=== PATIENT | male | born 1945 | race Caucasian/White ===

== ENCOUNTER 2019-05-14 23:21 | Inpatient (IN) ==
[2019-05-14] MEDS ORDERED: LACTATED RINGERS 1,000 ML IV ONE (23:44)
[2019-05-14] MEDS ORDERED: diphenhydrAMINE 50 MG/ML VIAL IV ONE (23:49)
--- NOTE | 2019-05-14 23:53 | Emergency Department Note ---
Alcohol HPI - General Chief Complaint: Alcohol Stated Complaint: Alcohol/facial abrasion Time Seen by Provider: 05/14/19 23:43 - History of Present Illness HPI Narrative: Brought in by police as well as EMS secondary to alcohol intoxication. Police states a known pretty well. He normally spends a lot of time at the [email or web address] and he walks from the [employer] back to his house. She stumbles home intoxicated. This time he was so intoxicated that he was unable to stand. He landed in a parking lot and then some kids tried to escort him over to a rascon which had stickers on it. There was no vomiting observed. He does have a facial abrasion, appears intoxicated MD complaint: alcohol intoxication - Related Data Allergies Allergy/AdvReac Type Severity Reaction Status Date / Time NKA Allergy Unknown Uncoded 02/28/15 23:37 No to Iodine Allergy Unknown Unknown Uncoded 02/28/15 23:37 No to Latex Allergy Unknown Uncoded 02/28/15 23:37 Review of Systems Limitations: ROS unobtainable due to patients medical condition Past Medical History - Past Medical History Source: nursing notes reviewed Medical history: Reports: COPD, other (alcohol dependency) Surgical history ED: Reports: non-contributory Family history: Reports: non-contributory - Social History smoking status: Current every day smoker Alcohol use: Reports: Frequently, Daily, Heavy, Recent Physical Exam Limitations: altered mental status General appearance: alert, appears intoxicated, in no apparent distress, other (in general he has ataxic gait. Abrasions on his face. Slurred speech) Head: atraumatic, normal inspection, other (a few facial abrasions mainly over the right side of face . Abrasions are superficial. Do not need suturing. He does have some edema to the area below the right eyelid. This is causing some facial swelling but extraocular movements are intact. He sees well out of both eyes as best as I can tell.) Eye: Present: EOMI, visual louis intact, other (pupils are sluggish). Absent: periorbital swelling, periorbital tenderness ENT: Present: normal exam, normal oropharynx, mucous membranes moist, TM's normal bilaterally, normal external ear exam Neck: Present: normal inspection, full ROM Chest: Present: normal inspection, symmetric chest wall rise Respiratory: Present: normal lung sounds bilaterally. Absent: respiratory distress, rales/crackles Cardiovascular: Present: regular rate, normal rhythm, normal heart sounds Abdominal: Present: soft, normal bowel sounds. Absent: distention, tenderness Extremities: Present: normal inspection, other (he has a deformed right elbow which is old injury, only about 20 of range of motion, he cannot supinate or pronate normally.). Absent: full ROM, tenderness Back: Present: normal inspection. Absent: vertebral tenderness Neurological: Present: alert, other (ataxic gait. Unable to stand without assistance up.). Absent: motor sensory deficit Psychiatric: Present: agitated, poor eye contact Skin: Present: warm, dry, normal color Course - Reevaluation(s) Reevaluation #1: Started on IV fluids. Initial labs drawn.. It turns out he was continuously trying to go to the bathroom. Quite agitated initially. Did seem to calm down with a little Ativan and Benadryl. Reevaluation #2: Discussed hospital admission with Dr. Bruno. At this point I do not think he warrants CT scanning of his head. There is no sign of significant head injury, mostly he has facial abrasions. Notably however his sodium is 119 which would warrant observation in the hospital. Vital Signs Pulse Rate 80 05/14/19 23:27 Respiratory Rate 18 05/14/19 23:27 Blood Pressure 125/104 05/14/19 23:27 Pulse Oximetry (%) 98 05/14/19 23:27 Pulse Rate 70 05/15/19 01:16 Respiratory Rate 18 05/14/19 23:27 Blood Pressure 126/68 05/15/19 01:16 Pulse Oximetry (%) 87 L 05/15/19 01:16 Alcohol - MDM Narrative Medical decision making narrative: CBC was within normal limits, however chemistry profile showing a sodium of 119. - Lab Data Lab results reviewed: Yes I reviewed the patient's lab results. Result diagrams: 05/14/19 23:56 05/14/19 23:56 Lab Results 05/14/19 05/14/1918 Range/Units 23:56 23:56 23:56 WBC 8.3 (4.5-11.0) K/mcL RBC 3.91 L (4.50-5.90) M/mcL Hgb 13.0 L (13.5-16.5) g/dL Hct 38.8 L (41.0-55.0) % MCV 99.1 (80.0-100.0) fL MCH 33.3 (26.0-34.0) pg MCHC 33.6 (31.0-36.0) g/dL RDW 14.2 (11.5-14.5) % Plt Count 309 (140-440) K/mcL MPV 6.4 L (7.4-10.4) fL Gran % 69.4 (38.0-78.0) % Lymph % (Auto) 19.1 (15.5-49.0) % [place] % (Auto) 9.2 (1.0-12.0) % Eos % (Auto) 2.2 (0.0-7.0) % Baso % (Auto) 0.1 (0.0-2.0) % Gran # 5.7 (1.8-8.0) K/mcL Lymph # (Auto) 1.6 (1.5-4.8) K/mcL [place] # (Auto) 0.8 (0.1-0.9) K/mcL Eos # (Auto) 0.2 (0.0-0.7) K/mcL Baso # (Auto) 0 (0.0-0.3) K/mcL PT 13.3 (11.9-14.5) sec INR 1.0 (0.9-1.1) Sodium 119 L* (133-145) mmol/L Potassium 4.2 (3.3-5.1) mmol/L Chloride 81 L (96-108) mmol/L Carbon Dioxide 23 (22-30) mmol/L Anion Gap 15.0 (8-16) BUN 6 L (8-23) mg/dl Creatinine 0.8 (0.7-1.2) mg/dl GFR Calculation 88 Glucose 93 (70-105) mg/dL Calcium 8.6 (8.6-10.4) mg/dl Magnesium 1.8 (1.6-2.5) mg/dL Total Bilirubin 0.3 (0.0-1.0) mg/dL AST 38 H (0-37) U/l ALT 27 (0-40) U/l Alkaline Phosphatase 81 (39-117) U/L Total Protein 7.4 (5.9-8.4) gm/dL Albumin 4.4 (3.2-5.2) gm/dL Globulin 3.0 (2.2-3.7) gm/dL Albumin/Globulin Ratio 1.5 (1.0-2.3) Ethyl Alcohol (<0.010) gm/dl 05/14/19 Range/Units 23:56 WBC (4.5-11.0) K/mcL RBC (4.50-5.90) M/mcL Hgb (13.5-16.5) g/dL Hct (41.0-55.0) % MCV (80.0-100.0) fL MCH (26.0-34.0) pg MCHC (31.0-36.0) g/dL RDW (11.5-14.5) % Plt Count (140-440) K/mcL MPV (7.4-10.4) fL Gran % (38.0-78.0) % Lymph % (Auto) (15.5-49.0) % [place] % (Auto) (1.0-12.0) % Eos % (Auto) (0.0-7.0) % Baso % (Auto) (0.0-2.0) % Gran # (1.8-8.0) K/mcL Lymph # (Auto) (1.5-4.8) K/mcL [place] # (Auto) (0.1-0.9) K/mcL Eos # (Auto) (0.0-0.7) K/mcL Baso # (Auto) (0.0-0.3) K/mcL PT (11.9-14.5) sec INR (0.9-1.1) Sodium (133-145) mmol/L Potassium (3.3-5.1) mmol/L Chloride (96-108) mmol/L Carbon Dioxide (22-30) mmol/L Anion Gap (8-16) BUN (8-23) mg/dl Creatinine (0.7-1.2) mg/dl GFR Calculation Glucose (70-105) mg/dL Calcium (8.6-10.4) mg/dl Magnesium (1.6-2.5) mg/dL Total Bilirubin (0.0-1.0) mg/dL AST (0-37) U/l ALT (0-40) U/l Alkaline Phosphatase (39-117) U/L Total Protein (5.9-8.4) gm/dL Albumin (3.2-5.2) gm/dL Globulin (2.2-3.7) gm/dL Albumin/Globulin Ratio (1.0-2.3) Ethyl Alcohol 0.251 H (<0.010) gm/dl Disposition Pt seen by SECURITY PUBLIC SAFETY OFFICER/PA only: No Clinical Impression: Alcoholic intoxication, Hyponatremia Disposition: Xfer As Inpt ([facility]) Condition: Fair Referrals: Chrissy Mahoney MD [Primary Care Provider] -
[2019-05-15 00:30] LABS: Prothrombin Time 13.3 sec (11.9-14.5)
[2019-05-15 00:34] LABS: Basophils # (Auto) 0 K/mcL (0.0-0.3); Basophils % (Auto) 0.1 % (0.0-2.0); Eosinophils # (Auto) 0.2 K/mcL (0.0-0.7); Eosinophils % (Auto) 2.2 % (0.0-7.0); Granulocytes % (Auto) 69.4 % (38.0-78.0); Hematocrit 38.8 % (41.0-55.0); Lymphocytes # (Auto) 1.6 K/mcL (1.5-4.8); Lymphocytes % (Auto) 19.1 % (15.5-49.0); Mean Cell Volume 99.1 fL (80.0-100.0); Mean Corpuscular HGB Conc 33.6 g/dL (31.0-36.0); Mean Platelet Volume 6.4 fL (7.4-10.4); Monocytes # (Auto) 0.8 K/mcL (0.1-0.9); Monocytes % (Auto) 9.2 % (1.0-12.0); Platelet Count 309 K/mcL (140-440); RBC 3.91 M/mcL (4.50-5.90); Red Cell Distribution Width 14.2 % (11.5-14.5); WBC 8.3 K/mcL (4.5-11.0)
[2019-05-15 00:41] LABS: Alcohol,Blood 0.251 gm/dl (<0.010)
[2019-05-15] MEDS ORDERED: LORazepam 2 MG/ML VIAL ONE (00:54)
[2019-05-15 00:56] LABS: ALT/SGPT 27 U/l (0-40); AST/SGOT 38 U/l (0-37); Albumin 4.4 gm/dL (3.2-5.2); Albumin/Globulin Ratio 1.5 (1.0-2.3); Alkaline Phosphatase 81 U/L (39-117); Bilirubin,Total 0.3 mg/dL (0.0-1.0); Blood Urea Nitrogen 6 mg/dl (8-23); Calcium 8.6 mg/dl (8.6-10.4); Carbon Dioxide 23 mmol/L (22-30); Chloride 81 mmol/L (96-108); Glomerular Filtration Rate 88; Glucose 93 mg/dL (70-105)
[2019-05-15] MEDS ORDERED: LORazepam 2 MG/ML VIAL IV ONE (01:10)
[2019-05-15] MEDS ORDERED: ONDANSETRON 4 MG/2 ML VIAL IV PRN ×2 (01:55→10:01)
[2019-05-15] MEDS ORDERED: 0.9 % SODIUM CHLORIDE 1,000 ML IV SCH ×2 (02:00→09:45)
[2019-05-15] MEDS: LORazepam 2 MG/ML VIAL IV PRN ×3 (03:00→20:39)
[2019-05-15 05:37] LABS: Basophils # (Auto) 0 K/mcL (0.0-0.3); Basophils % (Auto) 0.4 % (0.0-2.0); Eosinophils # (Auto) 0.1 K/mcL (0.0-0.7); Eosinophils % (Auto) 0.8 % (0.0-7.0); Granulocytes % (Auto) 76.2 % (38.0-78.0); Hematocrit 35.7 % (41.0-55.0); Lymphocytes # (Auto) 1.2 K/mcL (1.5-4.8); Mean Cell Volume 100.2 fL (80.0-100.0); Mean Corpuscular HGB Conc 33.6 g/dL (31.0-36.0); Mean Platelet Volume 6.2 fL (7.4-10.4); Monocytes # (Auto) 1.2 K/mcL (0.1-0.9); Monocytes % (Auto) 11.6 % (1.0-12.0); Platelet Count 243 K/mcL (140-440); RBC 3.56 M/mcL (4.50-5.90); Red Cell Distribution Width 14.3 % (11.5-14.5); WBC 10.7 K/mcL (4.5-11.0)
[2019-05-15 06:01] LABS: ALT/SGPT 22 U/l (0-40); AST/SGOT 32 U/l (0-37); Albumin 3.7 gm/dL (3.2-5.2); Albumin/Globulin Ratio 1.4 (1.0-2.3); Alkaline Phosphatase 68 U/L (39-117); Bilirubin,Direct < 0.2 mg/dL (0.0-0.3); Bilirubin,Total 0.4 mg/dL (0.0-1.0); Blood Urea Nitrogen 5 mg/dl (8-23); Calcium 8.2 mg/dl (8.6-10.4); Carbon Dioxide 22 mmol/L (22-30); Chloride 87 mmol/L (96-108); Globulin 2.7 gm/dL (2.2-3.7); Glomerular Filtration Rate 99; Glucose 70 mg/dL (70-105); Lactate Dehydrogenase 226 U/L (94-250); Triglycerides 42 mg/dl (<150)
--- NOTE | 2019-05-15 07:21 | Internal Med History&Physical ---
Medical - H&P: [facility] Patient information: Note initiated : 05/15/19 at 7:16 am Service Date, if different from initiated Date: [] Patient: Juan F Roblero 73 y/o M admitted on 05/15/19 for Alcohol/facial abrasion. Chief Complaint: [] History of present illness: Mr. Roblero is a 73 year old M Who presents to the ED with police. Patient history of alcohol abuse. And the long time at the [employer] and usually walks his way home intoxicated. Well-known to the place. This time he was so intoxicated he was unable to stand and fell in a parking, some kids brought him over to some bushes there was no observed vomiting he did have some facial abrasions. In the ED he was evaluated and found to have a sodium of 119 and thus admission was requested. Unable to get much history from the patient has he is quite drowsy. He did get some Ativan at 3 AM for elevated CIWA. Unable to gather review of systems because of poor mentation. Medical - H&P: H Medical history: Past medical: Alcohol abuse COPD Tobacco abuse Past surgical history Unable to obtain because of altered mental state Family history: Unable to obtain because of altered mental state Social: Smokes pack per day Unable to obtain because of altered mental state Medical - H&P: Meds Allergies Allergy/AdvReac Type Severity Reaction Status Date / Time No Known Drug Allergies Allergy Verified 05/15/19 02:38 Medical - H&P: Exam - Constitutional Vitals: Temp Pulse Resp BP Pulse Ox 98 F 72 16 121/68 94 05/15/19 06:00 05/15/19 06:00 05/15/19 06:00 05/15/19 06:00 05/15/19 06:00 Exam: General: drowsy, No acute Distress Eyes/N/T: PEERL, DMM Head/Neck: neck supple, ecchymosis of the right eye CV: RRR, No murmurs, normal s1/s2 Pulm: Mild wheezing on right, rhonchi left Abd: soft, nontender, +BS x4 Ext: no clubbing/cyanosis/edema, pain to the right elbow with passive elevation Neuro: Quite drowsy minimally responsive to verbal command, does weakly respond yes or no to some questions, spontaneously moves extremities, sensations intact b/l upper/lower Skin: warm/dry Medical - H&P: Reslt - Labs CBC & Chem 7: 05/15/19 04:06 05/15/19 04:06 Labs: Short CBC 05/14/19 05/15/19 Range/Units 23:56 04:06 WBC 8.3 10.7 (4.5-11.0) K/mcL Hgb 13.0 L 12.0 L (13.5-16.5) g/dL Hct 38.8 L 35.7 L (41.0-55.0) % Plt Count 309 243 (140-440) K/mcL BMP 05/14/19 05/15/19 23:56 04:06 Sodium 119 L* 122 L Potassium 4.2 4.1 Chloride 81 L 87 L Carbon Dioxide 23 22 BUN 6 L 5 L Creatinine 0.8 0.6 L Glucose 93 70 Calcium 8.6 8.2 L Liver Function 05/14/19 05/15/19 Range/Units 23:56 04:06 Total Bilirubin 0.3 0.4 (0.0-1.0) mg/dL Direct Bilirubin < 0.2 (0.0-0.3) mg/dL GGT 37 (8-61) U/L AST 38 H 32 (0-37) U/l ALT 27 22 (0-40) U/l Alkaline Phosphatase 81 68 (39-117) U/L Albumin 4.4 3.7 (3.2-5.2) gm/dL Medical - H&P: A/P - Narrative A/P Narrative: A: *Hyponatremia, beer potomania / hypovolemia: *UTI: *Alcohol intoxication: *Encephalopathy: 2/2 above *COPD (): *Tobacco abuse: * P: -NS IVF's -serial Na's -CIWA, thiamine/folate/MV -urine studies -f/u UDS -Rocephin, pending UC -Left elbow xry, cxr, CT brain -Rocephin pending UC -?home meds -Smoking cessation counseling -ppx: Lovenox Medical - H&P: Qual - VTE Deep Vein Thrombosis/Pulmonary Embolism Present on Admission: No
[2019-05-15 09:00] LABS: Osmolality,Urine 144 mOsm/kg (80-1000)
[2019-05-15] MEDS: THIAMINE 100 MG in 0.9 % SODIUM CHLORIDE 50 ML IV SCH (09:00)
[2019-05-15] MEDS ORDERED: ENOXAPARIN 40 MG/0.4 ML SYRINGE SQ SCH (09:00)
[2019-05-15 09:10] LABS: Appearance,Urine HAZY; Bacteria,Urine MANY /hpf (0); Bilirubin,Urine NEG (NEG); Color,Urine LT RED; Culture Indicated,Urine YES; Glucose,Urine (UA) NEGATIVE (NEG); Ketones,Urine NEG (NEG); Leukocyte Esterase,Urine 500 /uL (NEG); Nitrate,Urine POS (NEG); Protein,Urine 30 mg/dL (NEG); Specific Gravity,Urine 1.003 (1.000-1.035); Urine Blood >=1.0 mg/dL (<0.03); Urine RBC 14 /hpf (0-1); Urine Squamous Epithelial Cell 0 /hpf (0-4); Urine WBC 9 /hpf (0-4); Urobilinogen,Urine NEG (NEG)
[2019-05-15 09:11] LABS: Sodium, Urine Random < 20 mmol/L
[2019-05-15] MEDS ORDERED: POLYETHYLENE GLYCOL 3350 17 GM PACKET PO PRN (10:01)
[2019-05-15] MEDS ORDERED: IPRATROPIUM/ALBUTEROL 3 ML AMPUL.NEB NEB PRN (10:01)
[2019-05-15] MEDS ORDERED: MAGNESIUM SULFATE 2 GM/50 ML BAG IV PRN (10:01)
[2019-05-15] MEDS ORDERED: POTASSIUM CHLORIDE 40 MEQ in DEXTROSE 5% IN WATER 500 ML IV PRN (10:01)
[2019-05-15] MEDS ORDERED: POTASSIUM CHLORIDE 20 MEQ TABLET PO PRN ×2 (10:01)
[2019-05-15] MEDS ORDERED: SENNOSIDES 1 TABLET PO PRN (10:01)
[2019-05-15] MEDS ORDERED: METOCLOPRAMIDE 10 MG/2 ML VIAL IV PRN (10:01)
[2019-05-15] MEDS ORDERED: LACTULOSE 20 GM/30 ML ORAL.SOL PO PRN (10:01)
[2019-05-15] MEDS: FOLIC ACID 1 MG TABLET PO SCH ×2 (10:01→11:42)
[2019-05-15] MEDS: MULTIVIT,THER IRON,CA,FA & MIN 1 TABLET PO SCH ×2 (10:01→12:14)
[2019-05-15] MEDS ORDERED: cefTRIAXone 1 GM in DEXTROSE 5% IN WATER 50 ML IV SCH (10:15)
[2019-05-15] MEDS: cefTRIAXone 1 GM VIAL IV SCH (10:30)
--- NOTE | 2019-05-15 10:43 | Cat Scan Report ---
CLINICAL INFORMATION: Bruising in the right orbital region TECHNIQUE: Axial noncontrast enhanced brain CT scan. Sagittal and coronal reformatted images COMPARISON: None. FINDINGS: No acute intracranial hemorrhage. There is no subdural hematoma. There is no subarachnoid hemorrhage. Basilar cisterns are normal. No focal intra-axial attenuation abnormality or localized mass effect. No midline shift. No intra-axial hemorrhage. There is cerebral atrophy for age with prominent superficial subarachnoid spaces and ventricles. Brainstem and cerebellum are negative. No calvarial fracture. No lytic lesion. Temporal bones are negative. No basilar skull fracture. There is a suggestion of a right orbital floor fracture. This is only identified on the caudal most image. Routine orbital and maxillofacial CT scan recommended for further evaluation. There is fluid within the right maxillary sinus. There is minimal fluid within the left maxillary sinus. There is mucosal thickening within ethmoid sinuses bilaterally. There is fluid within right frontal sinuses. There is right periorbital soft tissue swelling. The globes are negative bilaterally. No intraorbital abnormality. IMPRESSION: 1. Cerebral atrophy. No acute intracranial abnormality 2. Right periorbital soft tissue swelling. Probable right orbital floor fracture. Recommend further evaluation 3. Abnormality of the right frontal sinuses, ethmoid sinuses, and maxillary sinuses. Hemorrhage within the right maxillary sinus is suspected. Interpreted and Authenticated by: Reinaldo Jerry 05/15/19
--- NOTE | 2019-05-15 10:45 | XRay Report ---
CLINICAL INFORMATION: Right elbow pain TECHNIQUE: AP, oblique, lateral right elbow COMPARISON: None. FINDINGS: Essentially nondisplaced humeral supracondylar fracture. Articular surfaces of the distal humerus are intact. Radius and ulna are negative. Radiocapitellar and ulnar trochlear joints are unremarkable. IMPRESSION: Essentially nondisplaced distal right humeral supracondylar fracture Interpreted and Authenticated by: Reinaldo Jerry 05/15/19
[2019-05-15 11:14] LABS: Amphetamine Screen,Urine NONE DETECTED (NONDETECTED); Barbiturate Screen,Urine NONE DETECTED (NONDETECTED); Benzodiazepines Screen,Urine NONE DETECTED (NONDETECTED); Cannabinoid Screen,Urine NONE DETECTED (NONDETECTED); Cocaine Screen,Urine NONE DETECTED (NONDETECTED); Opiate Screen,Urine NONE DETECTED (NONDETECTED); Oxycodone, Urine Screen NONE DETECTED (NONDETECTED); Phencyclidine Screen,Urine NONE DETECTED (NONDETECTED)
[2019-05-15] MEDS: chlordiazePOXIDE 25 MG CAPSULE PO PRN ×2 (11:40→19:44)
[2019-05-15] MEDS: HYDROcodone/APAP 5/325MG TABLET PO PRN (11:40)
[2019-05-15] MEDS: cloNIDine HCL 0.1 MG TABLET PO PRN (12:14)
[2019-05-15 13:00] LABS: Blood Urea Nitrogen 5 mg/dl (8-23); Calcium 8.5 mg/dl (8.6-10.4); Carbon Dioxide 27 mmol/L (22-30); Chloride 89 mmol/L (96-108); Glomerular Filtration Rate 99; Glucose 69 mg/dL (70-105)
[2019-05-15] MEDS ORDERED: DEXTROSE 5% IN WATER 250 ML IV SCH (14:00)
[2019-05-15] MEDS ORDERED: DEXTROSE 5%-NS W/20MEQ KCL 1,000 ML IV SCH (14:00)
[2019-05-15] MEDS: 0.9 % SODIUM CHLORIDE 10 ML SYRINGE IV SCH ×2 (14:36→21:59)
--- NOTE | 2019-05-15 15:18 | XRay Report ---
INDICATION: Dyspnea TECHNIQUE: AP chest x-ray,portable semiupright COMPARISON: Previous chest x-ray dated 11/06/2008 FINDINGS:Lungs are negative. No pulmonary parenchymal infiltrate or mass. Heart size and vascularity are normal. Selene and mediastinum are negative. There is no pleural fluid IMPRESSION: Negative AP portable chest x-ray Interpreted and Authenticated by: Reinaldo Jerry 05/15/19
[2019-05-15] MEDS: FAMOTIDINE/PF 20 MG/2 ML VIAL IV SCH (19:44)
[2019-05-15] MEDS: DOCUSATE SODIUM 100 MG CAPSULE PO SCH (19:44)
[2019-05-15 20:25] LABS: Blood Urea Nitrogen 5 mg/dl (8-23); Calcium 8.5 mg/dl (8.6-10.4); Carbon Dioxide 28 mmol/L (22-30); Chloride 88 mmol/L (96-108); Glomerular Filtration Rate 93; Glucose 89 mg/dL (70-105)
[2019-05-15] MEDS ORDERED: FAMOTIDINE 20 MG TABLET PO SCH (21:00)
[2019-05-16] MEDS: 0.9 % SODIUM CHLORIDE 10 ML SYRINGE IV SCH ×3 (05:10→21:48)
[2019-05-16 05:24] LABS: Basophils # (Auto) 0 K/mcL (0.0-0.3); Basophils % (Auto) 0.2 % (0.0-2.0); Eosinophils # (Auto) 0.1 K/mcL (0.0-0.7); Eosinophils % (Auto) 0.5 % (0.0-7.0); Granulocytes % (Auto) 83.6 % (38.0-78.0); Hematocrit 35.4 % (41.0-55.0); Hemoglobin 11.8 g/dL (13.5-16.5); Lymphocytes # (Auto) 0.9 K/mcL (1.5-4.8); Lymphocytes % (Auto) 7.6 % (15.5-49.0); Mean Cell Volume 100.5 fL (80.0-100.0); Mean Corpuscular HGB Conc 33.3 g/dL (31.0-36.0); Mean Platelet Volume 6.6 fL (7.4-10.4); Monocytes % (Auto) 8.1 % (1.0-12.0); Platelet Count 254 K/mcL (140-440); RBC 3.53 M/mcL (4.50-5.90); Red Cell Distribution Width 14.7 % (11.5-14.5); WBC 11.9 K/mcL (4.5-11.0)
[2019-05-16 05:41] LABS: ALT/SGPT 17 U/l (0-40); AST/SGOT 24 U/l (0-37); Albumin 3.1 gm/dL (3.2-5.2); Albumin/Globulin Ratio 1.2 (1.0-2.3); Alkaline Phosphatase 74 U/L (39-117); Bilirubin,Direct < 0.2 mg/dL (0.0-0.3); Bilirubin,Total 0.5 mg/dL (0.0-1.0); Blood Urea Nitrogen 5 mg/dl (8-23); Calcium 8.1 mg/dl (8.6-10.4); Carbon Dioxide 25 mmol/L (22-30); Chloride 94 mmol/L (96-108); Globulin 2.6 gm/dL (2.2-3.7); Glomerular Filtration Rate 93; Glucose 111 mg/dL (70-105); Lactate Dehydrogenase 202 U/L (94-250); Phosphorous 2.8 mg/dL (2.7-4.5); Triglycerides 52 mg/dl (<150); Uric Acid 2.5 mg/dL (2.5-8.0)
--- NOTE | 2019-05-16 07:43 | Internal Med Progress Note ---
Medical - PN: Subj Patient information: Note initiated : 05/16/19 at 7:39 am Service Date, if different from initiated Date: [] Patient: Juan F Roblero 73 y/o M admitted on 05/15/19 for Alcohol/facial abrasion. Chief Complaint: [] Interval history: Mr. Roblero is a 73 year old M Who presents to the ED with police. Patient history of alcohol abuse. And the long time at the [facility] and usually walks his way home intoxicated. Well-known to the place. This time he was so intoxicated he was unable to stand and fell in a parking, some kids brought him over to some bushes there was no observed vomiting he did have some facial abrasions. In the ED he was evaluated and found to have a sodium of 119 and thus admission was requested. Unable to get much history from the patient has he is quite drowsy. He did get some Ativan at 3 AM for elevated CIWA. Unable to gather review of systems because of poor mentation. 05/16 Or conversant this morning. No complaints. Received Ativan last night for elevated CIWA scores. Review of Systems: denies headache/fever/chills/nausea/vomiting/chest or abdominal pain/c ough/dyspnea/diarrhea. Otherwise see above. - Constitutional Vitals: Vital Signs Temp Pulse Resp BP Pulse Ox 98.7 F 73 14 134/59 99 05/16/19 04:00 05/16/19 04:00 05/16/19 04:00 05/16/19 04:00 05/16/19 04:00 Period Temp Pulse Resp BP Sys/Hawkins Pulse Ox Last 24 Hr 98 F-98.7 F 63-82 14-19 134-169/59-89 90-100 Intake and Output 05/15/19 05/16/19 05/16/19 21:59 05:59 13:59 Intake Total 593 Output Total 325 925 Balance 268 -925 Weight 57.379 kg Intake & Output: Intake & Output 05/15/19 05/16/19 05/16/19 21:59 05:59 13:59 Intake Total 593 Output Total 325 925 Balance 268 -925 Weight 57.379 kg Intake: IV 593 Dextrose 5% in Water 250 ml @ 250 125 mls/hr IV .Q2H [facility] Rx#: [id number] Output: Urine Catheter Amount 325 925 Other: Urine Appearance Cloudy Cloudy Urine Color Dark Yellow Dark Yellow Urine Odor Strong Strong Exam: General: Sleeping but awakens easily,no acute Distress Eyes/N/T: PEERL Head/Neck: neck supple, ecchymosis of the right eye CV: RRR, No murmurs, Pulm: No wheezing noted today, better aeration. abd: soft, nontender, +BS x4 Ext: no clubbing/cyanosis/edema, Neuro: Sleeping but awakens easily, follows commands, no focal deficits arm/dry Medical - PN: Obj Da - Labs CBC & Chem 7: 05/16/19 03:30 05/16/19 03:30 Labs: Abnormal Lab Results 05/16/19 05/16/19 05/15/19 03:30 03:30 18:13 WBC 11.9 H RBC 3.53 L Hgb 11.8 L Hct 35.4 L MCV 100.5 H RDW 14.7 H MPV 6.6 L Gran % 83.6 H Lymph % (Auto) 7.6 L Gran # 10.0 H Lymph # (Auto) 0.9 L Wilkin # (Auto) 1.0 H Sodium 129 L 125 L Potassium Chloride 94 L 88 L BUN 5 L 5 L Creatinine Glucose 111 H Calcium 8.1 L 8.5 L AST Total Protein 5.7 L Albumin 3.1 L Urine Protein Urine Occult Blood Urine Nitrate Ur Leukocyte Esterase Urine RBC Urine WBC Urine Bacteria Ethyl Alcohol 05/15/19 05/15/19 05/15/19 12:15 07:30 04:06 WBC RBC Hgb Hct MCV RDW MPV Gran % Lymph % (Auto) Gran # Lymph # (Auto) Wilkin # (Auto) Sodium 128 L 122 L Potassium 5.2 H Chloride 89 L 87 L BUN 5 L 5 L Creatinine 0.6 L 0.6 L Glucose 69 L Calcium 8.5 L 8.2 L AST Total Protein Albumin Urine Protein 30 A Urine Occult Blood >=1.0 A Urine Nitrate Pos A Ur Leukocyte Esterase 500 A Urine RBC 14 H Urine WBC 9 H Urine Bacteria Many A Ethyl Alcohol 05/15/19 05/14/19 05/14/19 04:06 23:56 23:56 WBC RBC 3.56 L Hgb 12.0 L Hct 35.7 L MCV 100.2 H RDW MPV 6.2 L Gran % Lymph % (Auto) 11.0 L Gran # 8.1 H Lymph # (Auto) 1.2 L Wilkin # (Auto) 1.2 H Sodium 119 L* Potassium Chloride 81 L BUN 6 L Creatinine Glucose Calcium AST 38 H Total Protein Albumin Urine Protein Urine Occult Blood Urine Nitrate Ur Leukocyte Esterase Urine RBC Urine WBC Urine Bacteria Ethyl Alcohol 0.251 H 05/14/19 23:56 WBC RBC 3.91 L Hgb 13.0 L Hct 38.8 L MCV RDW MPV 6.4 L Gran % Lymph % (Auto) Gran # Lymph # (Auto) Wilkin # (Auto) Sodium Potassium Chloride BUN Creatinine Glucose Calcium AST Total Protein Albumin Urine Protein Urine Occult Blood Urine Nitrate Ur Leukocyte Esterase Urine RBC Urine WBC Urine Bacteria Ethyl Alcohol Meds: Medications Acetaminophen (Tylenol) 650 mg PO Q6HP PRN PRN Reason: PAIN/FEVER > 101 Hydrocodone Bitart/Acetaminophen (Spalding 5/325mg) 1 tab PO Q4HP PRN PRN Reason: PAIN LEVEL 3-6 Last Admin: 05/15/19 11:40 Dose: 1 tab Documented by: Albuterol/Ipratropium (Duoneb) 3 ml NEB Q4HP PRN PRN Reason: Shortness Of Breath Ceftriaxone Sodium (Rocephin) 1 gm IV Q24H [facility] Last Admin: 05/15/19 10:30 Dose: 1 gm Documented by: Chlordiazepoxide HCl (Librium) 50 mg PO Q4HP PRN PRN Reason: Alcohol Withdrawal Last Admin: 05/15/19 19:44 Dose: 50 mg Documented by: Clonidine HCl (Catapres) 0.1 mg PO Q4HP PRN PRN Reason: Alcohol Withdrawal Last Admin: 05/15/19 12:14 Dose: 0.1 mg Documented by: Docusate Sodium (Colace) 100 mg PO BID [facility] Last Admin: 05/15/19 19:44 Dose: 100 mg Documented by: Famotidine (Pepcid) 20 mg IV Q12 [facility] Last Admin: 05/15/19 19:44 Dose: 20 mg Documented by: Folic Acid (Folic Acid) 1 mg PO DAILY [facility] Last Admin: 05/15/19 11:42 Dose: 1 mg Documented by: Thiamine HCl 100 mg/ Sodium (Chloride) 51 mls @ 50 mls/hr IV DAILY [facility] Last Infusion: 05/15/19 10:15 Dose: Infused Documented by: Magnesium Sulfate (Magnesium Sulfate) 2 gm in 50 mls @ 50 mls/hr IV UD PRN PRN Reason: Magnesium </= 1.6 Iron Carb/Multivit/Sioux/Folic Acid (Multivitamin W/Minerals) 1 tab PO DAILY [facility]AT[facility] Last Admin: 05/15/19 12:14 Dose: 1 tab Documented by: Lactulose (Cephulac) 10 gm PO DAILYP PRN PRN Reason: Constipation Lorazepam (Ativan) 0 mg IV Q1HP PRN; Protocol PRN Reason: Alcohol Withdrawal Last Admin: 05/15/19 20:39 Dose: 2 mg Documented by: Metoclopramide HCl (Reglan) 10 mg IV Q6HP PRN PRN Reason: Nausea And Vomiting Ondansetron HCl (Zofran) 4 mg IV Q4HP PRN PRN Reason: Nausea And Vomiting Ondansetron HCl (Zofran) 4 mg IV Q4HP PRN PRN Reason: Nausea And Vomiting Polyethylene Glycol (Miralax) 17 gm PO DAILYP PRN PRN Reason: Constipation Senna (Senokot) 2 tab PO HSP PRN PRN Reason: Constipation Sodium Chloride (Saline Flush) 10 ml IV Q8 [facility] Last Admin: 05/16/19 05:10 Dose: Not Given Documented by: Medical - PN: A/P - Time Spent With Patient Total time spent is greater than 50% in coordination of care (as documented) at patient's floor/unit and/or counseling patient: - Narrative A/P Narrative: A: *Hyponatremia, beer potomania / hypovolemia: improved *Fall while intoxicated DYE TUB TENDER: *Right orbital floor Fx: *Right humerus, lateral supracondylar fx: splint placed *UTI: *Alcohol intoxication: *Encephalopathy: 2/2 above *COPD (): *Tobacco abuse: *anemia: 2/2 trauma P: -CIWA, thiamine/folate/MV -Rocephin, pending -Dr. Odom consult -discussed with Dr Medina: recs to place in long arm splint and f/u in office -?home meds -Smoking cessation counseling -beer with dinner -ppx: SCD (hold chemical given trauma/facial bruising/possible hemorrhage maxiallary sinus)/ppi Medical - PN: Qual - VTE Deep Vein Thrombosis/Pulmonary Embolism Present on Admission: No
[2019-05-16 08:23] LABS: Lymphocytes % 14 % (15-49); Macrocytosis OCC (NONE SEEN); Monocytes % (Manual) 3 % (1-12); Platelet Estimate NORMAL (NORMAL); RBC Morphology ABNORM (NORMAL); Segmented Neutrophils % 83 % (38-78)
--- NOTE | 2019-05-16 08:59 | Cat Scan Report ---
CLINICAL INFORMATION: Trauma TECHNIQUE: Axial noncontrast enhanced images through the facial bones. Sagittal and coronal reformatted images. COMPARISON: Brain CT scan dated 05/15/2019 FINDINGS: Decreased left periorbital soft tissue swelling. Globes remain normal. No evidence for ocular injury. There is a fracture of the floor of the right orbit. There is a bone fragment which is displaced caudally and medially. Inferior rectus muscle is not caudally displaced but is slightly enlarged with minimal infiltration of surrounding fat. There may be a portion of this muscle which extends through the fracture defect. Clinical correlation for symptoms of inferior rectus muscular entrapment recommended. Extraocular musculature is otherwise negative. Optic nerve is negative. There is no medial blowout fracture. Lamina papyracea appears intact. Lateral wall and orbital roof are normal. Zygomatic arches are normal and bilaterally symmetric. There is abnormal soft tissue density within the right maxillary sinus. There are gas bubbles indicating this is at least partially fluid density. There is mild mucosal thickening within right ethmoid sinuses. Nasal bones are angulated toward the right. No acute nasal bone fracture. Hard palate is negative. Pterygoid plates are negative. Temporal bones are negative. No basilar skull fracture. Sphenoid sinuses are normal. Incidental note is made of atherosclerotic calcification in the cavernous portions of the internal carotid arteries bilaterally IMPRESSION: 1. Right orbital floor blowout fracture 2. Soft tissue abnormality within the right maxillary sinus consistent with hemorrhage 3. No medial blowout fracture. No other facial bone fractures. 4. Improved right periorbital soft tissue swelling Interpreted and Authenticated by: Reinaldo Jerry 05/16/19
[2019-05-16] MEDS: THIAMINE 100 MG in 0.9 % SODIUM CHLORIDE 50 ML IV SCH (10:03)
[2019-05-16] MEDS: FAMOTIDINE/PF 20 MG/2 ML VIAL IV SCH ×2 (10:03→19:33)
[2019-05-16] MEDS: cefTRIAXone 1 GM VIAL IV SCH (10:05)
[2019-05-16] MEDS: 0.9 % SODIUM CHLORIDE 500 ML IV SCH ×2 (10:06→21:47)
[2019-05-16] MEDS: HYDROcodone/APAP 5/325MG TABLET PO PRN ×2 (11:59→20:08)
[2019-05-16] MEDS: chlordiazePOXIDE 25 MG CAPSULE PO PRN ×2 (11:59→20:09)
[2019-05-16] MEDS: DOCUSATE SODIUM 100 MG CAPSULE PO SCH ×2 (11:59→19:32)
[2019-05-16] MEDS: MULTIVIT,THER IRON,CA,FA & MIN 1 TABLET PO SCH (11:59)
[2019-05-16] MEDS: cloNIDine HCL 0.1 MG TABLET PO PRN (12:00)
[2019-05-16] MEDS: FOLIC ACID 1 MG TABLET PO SCH (12:00)
[2019-05-16] MEDS: LORazepam 2 MG/ML VIAL IV PRN ×4 (12:28→21:54)
[2019-05-17 05:22] LABS: Basophils # (Auto) 0 K/mcL (0.0-0.3); Basophils % (Auto) 0.5 % (0.0-2.0); Eosinophils # (Auto) 0.2 K/mcL (0.0-0.7); Eosinophils % (Auto) 1.8 % (0.0-7.0); Granulocytes % (Auto) 75.7 % (38.0-78.0); Hematocrit 33.9 % (41.0-55.0); Hemoglobin 11.3 g/dL (13.5-16.5); Lymphocytes # (Auto) 1.1 K/mcL (1.5-4.8); Lymphocytes % (Auto) 11.9 % (15.5-49.0); Mean Cell Volume 100.4 fL (80.0-100.0); Mean Corpuscular HGB Conc 33.4 g/dL (31.0-36.0); Mean Platelet Volume 6.8 fL (7.4-10.4); Monocytes # (Auto) 0.9 K/mcL (0.1-0.9); Monocytes % (Auto) 10.1 % (1.0-12.0); Platelet Count 260 K/mcL (140-440); RBC 3.37 M/mcL (4.50-5.90); Red Cell Distribution Width 14.3 % (11.5-14.5); WBC 9.2 K/mcL (4.5-11.0)
[2019-05-17 05:27] LABS: Blood Urea Nitrogen 5 mg/dl (8-23); Calcium 8.3 mg/dl (8.6-10.4); Carbon Dioxide 26 mmol/L (22-30); Chloride 96 mmol/L (96-108); Glomerular Filtration Rate 99; Glucose 73 mg/dL (70-105)
[2019-05-17] MEDS: 0.9 % SODIUM CHLORIDE 10 ML SYRINGE IV SCH ×3 (07:44→20:13)
[2019-05-17] MEDS: 0.9 % SODIUM CHLORIDE 500 ML IV SCH (07:44)
--- NOTE | 2019-05-17 08:04 | Internal Med Progress Note ---
Medical - PN: Subj Patient information: Note initiated : 05/17/19 at 7:59 am Service Date, if different from initiated Date: [] Patient: Juan F Roblero 73 y/o M admitted on 05/15/19 for Alcohol/facial abrasion. Chief Complaint: [] Interval history: Mr. Roblero is a 73 year old M Who presents to the ED with police. Patient history of alcohol abuse. And the long time at the [facility] and usually walks his way home intoxicated. Well-known to the place. This time he was so intoxicated he was unable to stand and fell in a parking, some kids brought him over to some bushes there was no observed vomiting he did have some facial abrasions. In the ED he was evaluated and found to have a sodium of 119 and thus admission was requested. Unable to get much history from the patient has he is quite drowsy. He did get some Ativan at 3 AM for elevated CIWA. Unable to gather review of systems because of poor mentation. 05/16 Or conversant this morning. No complaints. Received Ativan last night for elevated CIWA scores. 05/17 Patient sleeping but arousable. Nurse reports this morning patient appeared aspirate on water. Patient n.p.o. until seen by speech today. Review of Systems: denies headache/fever/chills/nausea/vomiting/chest or abdominal pain/cough/dyspnea/diarrhea. Otherwise see above. - Constitutional Vitals: Vital Signs Temp Pulse Resp BP Pulse Ox 97.3 F 69 14 145/77 93 05/17/19 04:00 05/17/19 04:00 05/17/19 04:00 05/17/19 04:00 05/17/19 04:00 Period Temp Pulse Resp BP Sys/Hawkins Pulse Ox Last 24 Hr 97.3 F-98.0 F 69-107 14-18 128-165/63-103 91-98 Intake and Output 05/16/19 05/17/19 05/17/19 21:59 05:59 13:59 Intake Total 200 500 Output Total 800 545 Balance -600 -545 500 Weight 56.019 kg Intake & Output: Intake & Output 05/16/19 05/17/19 05/17/19 21:59 05:59 13:59 Intake Total 200 500 Output Total 800 545 Balance -600 -545 500 Weight 56.019 kg Intake: IV 500 Sodium Chloride 0.9% 500 ml @ 500 50 mls/hr IV .Q10H [facility] Rx#: [id number] Oral 200 Output: Urine Catheter Amount 800 545 Other: Urine Appearance Clear Sediment Uretheral (Hahn) Clear Clear Urine Color Dark Yellow Dark Yellow Uretheral (Hahn) Dark Yellow Dark Yellow Urine Odor Normal Exam: General: Sleeping but awakens easily,no acute Distress Eyes/N/T: PEERL Head/Neck: neck supple, ecchymosis of the right eye CV: RRR, No murmurs, Pulm: No wheezing noted today, better aeration, mild rhonchi abd: soft, nontender, +BS x4 Ext: no clubbing/cyanosis/edema, RUE in splint Neuro: Sleeping but awakens easily, follows commands, no focal deficits skin: warm/dry Medical - PN: Obj Da - Labs CBC & Chem 7: 05/17/19 03:30 05/17/19 03:30 Labs: Abnormal Lab Results 05/17/19 05/17/19 05/16/19 03:30 03:30 03:30 WBC RBC 3.37 L Hgb 11.3 L Hct 33.9 L MCV 100.4 H RDW MPV 6.8 L Gran % Lymph % (Auto) 11.9 L Gran # Lymph # (Auto) 1.1 L [place] # (Auto) Seg Neutrophils % 83 H Lymphocytes % 14 L RBC Morphology Abnorm A Macrocytosis Occ A Sodium Potassium Chloride BUN 5 L Creatinine 0.6 L Glucose Calcium 8.3 L AST Total Protein Albumin Urine Protein Urine Occult Blood Urine Nitrate Ur Leukocyte Esterase Urine RBC Urine WBC Urine Bacteria Ethyl Alcohol 05/16/19 05/16/19 05/15/19 03:30 03:30 18:13 WBC 11.9 H RBC 3.53 L Hgb 11.8 L Hct 35.4 L MCV 100.5 H RDW 14.7 H MPV 6.6 L Gran % 83.6 H Lymph % (Auto) 7.6 L Gran # 10.0 H Lymph # (Auto) 0.9 L [place] # (Auto) 1.0 H Seg Neutrophils % Lymphocytes % RBC Morphology Macrocytosis Sodium 129 L 125 L Potassium Chloride 94 L 88 L BUN 5 L 5 L Creatinine Glucose 111 H Calcium 8.1 L 8.5 L AST Total Protein 5.7 L Albumin 3.1 L Urine Protein Urine Occult Blood Urine Nitrate Ur Leukocyte Esterase Urine RBC Urine WBC Urine Bacteria Ethyl Alcohol 05/15/19 05/15/19 05/15/19 12:15 07:30 04:06 WBC RBC Hgb Hct MCV RDW MPV Gran % Lymph % (Auto) Gran # Lymph # (Auto) [place] # (Auto) Seg Neutrophils % Lymphocytes % RBC Morphology Macrocytosis Sodium 128 L 122 L Potassium 5.2 H Chloride 89 L 87 L BUN 5 L 5 L Creatinine 0.6 L 0.6 L Glucose 69 L Calcium 8.5 L 8.2 L AST Total Protein Albumin Urine Protein 30 A Urine Occult Blood >=1.0 A Urine Nitrate Pos A Ur Leukocyte Esterase 500 A Urine RBC 14 H Urine WBC 9 H Urine Bacteria Many A Ethyl Alcohol 05/15/19 05/14/19 05/14/19 04:06 23:56 23:56 WBC RBC 3.56 L Hgb 12.0 L Hct 35.7 L MCV 100.2 H RDW MPV 6.2 L Gran % Lymph % (Auto) 11.0 L Gran # 8.1 H Lymph # (Auto) 1.2 L [place] # (Auto) 1.2 H Seg Neutrophils % Lymphocytes % RBC Morphology Macrocytosis Sodium 119 L* Potassium Chloride 81 L BUN 6 L Creatinine Glucose Calcium AST 38 H Total Protein Albumin Urine Protein Urine Occult Blood Urine Nitrate Ur Leukocyte Esterase Urine RBC Urine WBC Urine Bacteria Ethyl Alcohol 0.251 H 05/14/19 23:56 WBC RBC 3.91 L Hgb 13.0 L Hct 38.8 L MCV RDW MPV 6.4 L Gran % Lymph % (Auto) Gran # Lymph # (Auto) [place] # (Auto) Seg Neutrophils % Lymphocytes % RBC Morphology Macrocytosis Sodium Potassium Chloride BUN Creatinine Glucose Calcium AST Total Protein Albumin Urine Protein Urine Occult Blood Urine Nitrate Ur Leukocyte Esterase Urine RBC Urine WBC Urine Bacteria Ethyl Alcohol Meds: Medications Acetaminophen (Tylenol) 650 mg PO Q6HP PRN PRN Reason: PAIN/FEVER > 101 Hydrocodone Bitart/Acetaminophen ([place] 5/325mg) 1 tab PO Q4HP PRN PRN Reason: PAIN LEVEL 3-6 Last Admin: 05/16/19 20:08 Dose: 1 tab Documented by: Albuterol/Ipratropium (Duoneb) 3 ml NEB Q4HP PRN PRN Reason: Shortness Of Breath Ceftriaxone Sodium (Rocephin) 1 gm IV Q24H [facility] Last Admin: 05/16/19 10:05 Dose: 1 gm Documented by: Chlordiazepoxide HCl (Librium) 50 mg PO Q4HP PRN PRN Reason: Alcohol Withdrawal Last Admin: 05/16/19 20:09 Dose: 50 mg Documented by: Clonidine HCl (Catapres) 0.1 mg PO Q4HP PRN PRN Reason: Alcohol Withdrawal Last Admin: 05/16/19 12:00 Dose: 0.1 mg Documented by: Docusate Sodium (Colace) 100 mg PO BID [facility] Last Admin: 05/16/19 19:32 Dose: 100 mg Documented by: Famotidine (Pepcid) 20 mg IV Q12 [facility] Last Admin: 05/16/19 19:33 Dose: 20 mg Documented by: Folic Acid (Folic Acid) 1 mg PO DAILY [facility] Last Admin: 05/16/19 12:00 Dose: 1 mg Documented by: Thiamine HCl 100 mg/ Sodium (Chloride) 51 mls @ 50 mls/hr IV DAILY [facility] Last Infusion: 05/16/19 11:05 Dose: Infused Documented by: Magnesium Sulfate (Magnesium Sulfate) 2 gm in 50 mls @ 50 mls/hr IV UD PRN PRN Reason: Magnesium </= 1.6 Sodium Chloride (Sodium Chloride 0.9%) 500 mls @ 50 mls/hr IV .Q10H [facility] Last Infusion: 05/17/19 07:44 Dose: Infused Documented by: Iron Carb/Multivit/[place]rehan/Folic Acid (Multivitamin W/Minerals) 1 tab PO DAILY [facility] Last Admin: 05/16/19 11:59 Dose: 1 tab Documented by: Lactulose (Cephulac) 10 gm PO DAILYP PRN PRN Reason: Constipation Lorazepam (Ativan) 0 mg IV Q1HP PRN; Protocol PRN Reason: Alcohol Withdrawal Last Admin: 05/16/19 21:54 Dose: 2 mg Documented by: Metoclopramide HCl (Reglan) 10 mg IV Q6HP PRN PRN Reason: Nausea And Vomiting Ondansetron HCl (Zofran) 4 mg IV Q4HP PRN PRN Reason: Nausea And Vomiting Ondansetron HCl (Zofran) 4 mg IV Q4HP PRN PRN Reason: Nausea And Vomiting Polyethylene Glycol (Miralax) 17 gm PO DAILYP PRN PRN Reason: Constipation Senna (Senokot) 2 tab PO HSP PRN PRN Reason: Constipation Sodium Chloride (Saline Flush) 10 ml IV Q8 [facility] Last Admin: 05/17/19 07:44 Dose: Not Given Documented by: Medical - PN: A/P - Time Spent With Patient Total time spent is greater than 50% in coordination of care (as documented) at patient's floor/unit and/or counseling patient: - Narrative A/P Narrative: A: *Hyponatremia, beer potomania / hypovolemia: resolved *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 Odom consulted, reviewed imaging, pt vision intact, conservative management, f/u outpt -discussed with Dr Medina: recs to place in long arm splint and f/u in office -?home meds -Smoking cessation counseling -NPO until seen by speech therapy -sanjeev with dinner -ppx: SCD (hold chemical given facial trauma with bruising & hemorrhage into maxiallary sinus)/ppi Medical - PN: Qual - VTE Deep Vein Thrombosis/Pulmonary Embolism Present on Admission: No
[2019-05-17] MEDS: FAMOTIDINE/PF 20 MG/2 ML VIAL IV SCH ×2 (09:52→20:12)
[2019-05-17] MEDS: THIAMINE 100 MG in 0.9 % SODIUM CHLORIDE 50 ML IV SCH (09:52)
[2019-05-17] MEDS: DOCUSATE SODIUM 100 MG CAPSULE PO SCH ×2 (09:53→20:13)
[2019-05-17] MEDS: MULTIVIT,THER IRON,CA,FA & MIN 1 TABLET PO SCH (09:53)
[2019-05-17] MEDS: FOLIC ACID 1 MG TABLET PO SCH (09:53)
[2019-05-17] MEDS: cefTRIAXone 1 GM VIAL IV SCH (10:01)
[2019-05-17] MEDS: LORazepam 2 MG/ML VIAL IV PRN (11:18)
[2019-05-17] MEDS: KCL IV SCH ×2 (11:24→17:06)
[2019-05-17] MEDS: DEXTROSE IV SCH ×2 (11:24→17:06)
[2019-05-17] MEDS: NICOTINE 14 MG PATCH TOPICAL SCH (14:16)
[2019-05-17] MEDS: NICOTINE 21 MG PATCH TOPICAL SCH (14:16)
[2019-05-18 05:47] LABS: Blood Urea Nitrogen 6 mg/dl (8-23); Calcium 8.5 mg/dl (8.6-10.4); Carbon Dioxide 25 mmol/L (22-30); Chloride 93 mmol/L (96-108); Glomerular Filtration Rate 99; Glucose 89 mg/dL (70-105)
--- NOTE | 2019-05-18 06:39 | XRay Report ---
INDICATION: Possible aspiration TECHNIQUE: AP chest x-ray,portable semiupright COMPARISON: Previous examinations dated 05/15/2019, 11/06/2008 FINDINGS:Density in the left retrocardiac region consistent with left lower lobe infiltrate. This is a new finding since previous examination and is consistent with pneumonia. Follow-up evaluation is recommended. There is a possible subtle density at the right lung base. This could be a prominent nipple. This should also be evaluated with follow-up chest x-ray. Right lung is otherwise negative. Heart size and vascularity are normal. IMPRESSION: 1. Left lower lobe density consistent with pneumonia. Follow-up recommended 2. Right basilar density is probably a prominent nipple shadow. Follow-up recommended Interpreted and Authenticated by: Reinaldo Jerry 05/18/19
[2019-05-18] MEDS: 0.9 % SODIUM CHLORIDE 10 ML SYRINGE IV SCH ×3 (06:56→20:08)
--- NOTE | 2019-05-18 07:00 | Internal Med Progress Note ---
Medical - PN: Subj Patient information: Note initiated : 05/18/19 at 6:55 am Service Date, if different from initiated Date: [] Patient: Juan F Roblero 73 y/o M admitted on 05/15/19 for Alcohol/facial abrasion. Chief Complaint: [] Interval history: Mr. Roblero is a 73 year old M Who presents to the ED with police. Patient history of alcohol abuse. And the long time at the [facility] and usually walks his way home intoxicated. Well-known to the place. This time he was so intoxicated he was unable to stand and fell in a parking, some kids brought him over to some bushes there was no observed vomiting he did have some facial abrasions. In the ED he was evaluated and found to have a sodium of 119 and thus admission was requested. Unable to get much history from the patient has he is quite drowsy. He did get some Ativan at 3 AM for elevated CIWA. Unable to gather review of systems because of poor mentation. 05/16 Or conversant this morning. No complaints. Received Ativan last night for elevated CIWA scores. 05/17 Patient sleeping but arousable. Nurse reports this morning patient appeared aspirate on water. Patient n.p.o. until seen by speech today. 05/18 No overnight events. Patient was cooperative with care. CIWA low through night and no ativan given. Seen by speech therapy yesterday but patient uncooperative, recommendations for continued n.p.o. Dobbhoff today for nutrition until able to take orally per speech therapy. Review of Systems: denies headache/fever/chills/nausea/vomiting/chest or abdominal pain/cough/dyspnea/diarrhea. Otherwise see above. - Constitutional Vitals: Vital Signs Temp Pulse Resp BP Pulse Ox 99.6 F H 107 H 20 141/68 97 05/18/19 04:01 05/18/19 04:34 05/18/19 04:34 05/18/19 04:01 05/18/19 04:34 Period Temp Pulse Resp BP Sys/Hawkins Pulse Ox Last 24 Hr 97.5 F-99.6 F 79-115 13-25 117-164/58-97 91-100 Intake and Output 05/17/19 05/18/19 05/18/19 21:59 05:59 13:59 Intake Total 500 Output Total 1 3 Balance 499 -3 Weight 57.788 kg Intake & Output: Intake & Output 05/17/19 05/18/19 05/18/19 21:59 05:59 13:59 Intake Total 500 Output Total 1 3 Balance 499 -3 Weight 57.788 kg Intake: IV 500 Dextrose 5%-Ns W/20Meq KCl 500 500 ml @ 70 mls/hr IV .Q7H9M [facility] Rx #:[id number] Output: # of times incontinent of urine 1 3 Exam: General: Awake, no acute Distress Eyes/N/T: PEERL Head/Neck: neck supple, ecchymosis of the right eye CV: RRR, No murmurs, Pulm: No wheezing, rhonchi abd: soft, nontender, +BS x4 Ext: no clubbing/cyanosis/edema, RUE in splint Neuro: Awake, hard of hearing, follows commands, no focal deficits skin: warm/dry Medical - PN: Obj Da - Labs CBC & Chem 7: 05/17/19 03:30 05/18/19 03:40 Labs: Abnormal Lab Results 05/18/19 05/17/19 05/17/19 03:40 03:30 03:30 WBC RBC 3.37 L Hgb 11.3 L Hct 33.9 L MCV 100.4 H RDW MPV 6.8 L Gran % Lymph % (Auto) 11.9 L Gran # Lymph # (Auto) 1.1 L [place] # (Auto) Seg Neutrophils % Lymphocytes % RBC Morphology Macrocytosis Sodium 130 L Potassium Chloride 93 L BUN 6 L 5 L Creatinine 0.6 L 0.6 L Glucose Calcium 8.5 L 8.3 L Total Protein Albumin Urine Protein Urine Occult Blood Urine Nitrate Ur Leukocyte Esterase Urine RBC Urine WBC Urine Bacteria 05/16/19 05/16/19 05/16/19 03:30 03:30 03:30 WBC 11.9 H RBC 3.53 L Hgb 11.8 L Hct 35.4 L MCV 100.5 H RDW 14.7 H MPV 6.6 L Gran % 83.6 H Lymph % (Auto) 7.6 L Gran # 10.0 H Lymph # (Auto) 0.9 L [place] # (Auto) 1.0 H Seg Neutrophils % 83 H Lymphocytes % 14 L RBC Morphology Abnorm A Macrocytosis Occ A Sodium 129 L Potassium Chloride 94 L BUN 5 L Creatinine Glucose 111 H Calcium 8.1 L Total Protein 5.7 L Albumin 3.1 L Urine Protein Urine Occult Blood Urine Nitrate Ur Leukocyte Esterase Urine RBC Urine WBC Urine Bacteria 05/15/19 05/15/19 05/15/19 18:13 12:15 07:30 WBC RBC Hgb Hct MCV RDW MPV Gran % Lymph % (Auto) Gran # Lymph # (Auto) [place] # (Auto) Seg Neutrophils % Lymphocytes % RBC Morphology Macrocytosis Sodium 125 L 128 L Potassium 5.2 H Chloride 88 L 89 L BUN 5 L 5 L Creatinine 0.6 L Glucose 69 L Calcium 8.5 L 8.5 L Total Protein Albumin Urine Protein 30 A Urine Occult Blood >=1.0 A Urine Nitrate Pos A Ur Leukocyte Esterase 500 A Urine RBC 14 H Urine WBC 9 H Urine Bacteria Many A Meds: Medications Acetaminophen (Tylenol) 650 mg PO Q6HP PRN PRN Reason: PAIN/FEVER > 101 Hydrocodone Bitart/Acetaminophen ([place] 5/325mg) 1 tab PO Q4HP PRN PRN Reason: PAIN LEVEL 3-6 Last Admin: 05/16/19 20:08 Dose: 1 tab Documented by: Albuterol/Ipratropium (Duoneb) 3 ml NEB Q4HP PRN PRN Reason: Shortness Of Breath Last Admin: 05/17/19 09:52 Dose: 3 ml Documented by: Ceftriaxone Sodium (Rocephin) 1 gm IV Q24H [facility] Last Admin: 05/17/19 10:01 Dose: 1 gm Documented by: Chlordiazepoxide HCl (Librium) 50 mg PO Q4HP PRN PRN Reason: Alcohol Withdrawal Last Admin: 05/16/19 20:09 Dose: 50 mg Documented by: Clonidine HCl (Catapres) 0.1 mg PO Q4HP PRN PRN Reason: Alcohol Withdrawal Last Admin: 05/16/19 12:00 Dose: 0.1 mg Documented by: Docusate Sodium (Colace) 100 mg PO BID [facility] Last Admin: 05/17/19 20:13 Dose: Not Given Documented by: Famotidine (Pepcid) 20 mg IV Q12 [facility] Last Admin: 05/17/19 20:12 Dose: 20 mg Documented by: Folic Acid (Folic Acid) 1 mg PO DAILY [facility] Last Admin: 05/17/19 09:53 Dose: Not Given Documented by: Thiamine HCl 100 mg/ Sodium (Chloride) 51 mls @ 50 mls/hr IV DAILY [facility] Last Infusion: 05/17/19 11:53 Dose: Infused Documented by: Magnesium Sulfate (Magnesium Sulfate) 2 gm in 50 mls @ 50 mls/hr IV UD PRN PRN Reason: Magnesium </= 1.6 Potassium Chloride/Dextrose/Sod Cl (Dextrose 5%-Ns W/20meq Kcl) 500 mls @ 70 mls/hr IV .Q7H9M [facility] Last Infusion: 05/17/19 18:33 Dose: Infused Documented by: Iron Carb/Multivit/[place]/Folic Acid (Multivitamin W/Minerals) 1 tab PO DAILY [facility] Last Admin: 05/17/19 09:53 Dose: Not Given Documented by: Lactulose (Cephulac) 10 gm PO DAILYP PRN PRN Reason: Constipation Lorazepam (Ativan) 0 mg IV Q1HP PRN; Protocol PRN Reason: Alcohol Withdrawal Last Admin: 05/17/19 11:18 Dose: 2 mg Documented by: Metoclopramide HCl (Reglan) 10 mg IV Q6HP PRN PRN Reason: Nausea And Vomiting Morphine Sulfate (Morphine) 1 - 4 mg IV Q3HP PRN PRN Reason: PAIN LEVEL > 6 Last Admin: 05/17/19 23:38 Dose: 2 mg Documented by: Nicotine (Nicoderm) 21 mg TOPICAL DAILY@1000 [facility] Last Admin: 05/17/19 14:16 Dose: 21 mg Documented by: Nicotine (Nicoderm) 14 mg TOPICAL DAILY@1000 [facility] Last Admin: 05/17/19 14:16 Dose: 14 mg Documented by: Ondansetron HCl (Zofran) 4 mg IV Q4HP PRN PRN Reason: Nausea And Vomiting Ondansetron HCl (Zofran) 4 mg IV Q4HP PRN PRN Reason: Nausea And Vomiting Polyethylene Glycol (Miralax) 17 gm PO DAILYP PRN PRN Reason: Constipation Senna (Senokot) 2 tab PO HSP PRN PRN Reason: Constipation Sodium Chloride (Saline Flush) 10 ml IV Q8 [facility] Last Admin: 05/17/19 20:13 Dose: 10 ml Documented by: Medical - PN: A/P - Time Spent With Patient Total time spent is greater than 50% in coordination of care (as documented) at patient's floor/unit and/or counseling patient: - Narrative A/P Narrative: A: *Hyponatremia, beer potomania / hypovolemia: resolved *Fall while intoxicated [employer]: *Likely aspiration with thin liquids (water): *Right orbital floor Fx w/hemorrage into right Maxillary sinus: vision appears intact *Right humerus, lateral supracondylar fx: splint placed *UTI (GNB): *Alcohol intoxication with Withdrawal: *Encephalopathy: 2/2 above, improving slowly *COPD (not on home O2): *Tobacco abuse: *anemia: 2/2 trauma, stable P: -CIWA, thiamine/folate/MV -Rocephin, pending UC -Dr. Odom consulted, reviewed imaging, pt vision intact, conservative management, f/u outpt -discussed with Dr Medina: recs to place in long arm splint and f/u in office -IS, wean O2 -Smoking cessation counseling -NPO until cleard by speech therapy -f/u CXR in AM -beer with dinner -pt/ot -ppx: SCD (hold chemical given facial trauma with bruising & hemorrhage into maxiallary sinus)/ppi Medical - PN: Qual - VTE Deep Vein Thrombosis/Pulmonary Embolism Present on Admission: No
[2019-05-18] MEDS: DOCUSATE SODIUM 100 MG CAPSULE PO SCH ×2 (09:25→20:08)
[2019-05-18] MEDS: MULTIVIT,THER IRON,CA,FA & MIN 1 TABLET PO SCH (09:25)
[2019-05-18] MEDS: FOLIC ACID 1 MG TABLET PO SCH (09:25)
[2019-05-18] MEDS: SODIUM CHLORIDE 1 GM TABLET PO SCH ×3 (09:25→19:28)
--- NOTE | 2019-05-18 09:59 | XRay Report ---
CLINICAL INFORMATION: Feeding tube placement TECHNIQUE: AP supine abdomen COMPARISON: None. FINDINGS: 2 examinations performed. First examination is dated 05/18/2019 at 0834. No feeding tube is visible. The second examination is performed on 05/18/2019 at 0845. There is a metallic tip feeding tube with its tip in the gastric fundus. There is small bowel and colonic gas. No evidence for mechanical small bowel obstruction. Bowel gas pattern is nonspecific. There is density in the left retrocardiac region consistent with left lower lobe infiltrate IMPRESSION: Metallic tip feeding tube with its tip in the gastric fundus Interpreted and Authenticated by: Reinaldo Jerry 05/18/19
[2019-05-18] MEDS: THIAMINE 100 MG in 0.9 % SODIUM CHLORIDE 50 ML IV SCH (10:47)
[2019-05-18] MEDS: DEXTROSE IV SCH (10:48)
[2019-05-18] MEDS: KCL IV SCH (10:48)
[2019-05-18] MEDS: FAMOTIDINE/PF 20 MG/2 ML VIAL IV SCH ×2 (10:56→20:07)
[2019-05-18] MEDS: CHLORHEXIDINE GLUCONATE 1 ML ORAL.SOL SWABMOUTH SCH ×2 (10:56→20:07)
[2019-05-18] MEDS: cefTRIAXone 1 GM VIAL IV SCH (10:56)
[2019-05-18] MEDS: NICOTINE 21 MG PATCH TOPICAL SCH (10:57)
[2019-05-18] MEDS: NICOTINE 14 MG PATCH TOPICAL SCH (10:57)
[2019-05-18] MEDS: LORazepam 2 MG/ML VIAL IV PRN ×2 (11:04→18:55)
[2019-05-18] MEDS: ACETAMINOPHEN 325 MG TABLET PO PRN (19:27)
[2019-05-18] MEDS: HYDROcodone/APAP 5/325MG TABLET PO PRN (19:28)
[2019-05-18] MEDS: cloNIDine HCL 0.1 MG TABLET PO PRN (19:28)
[2019-05-19] MEDS: LORazepam 2 MG/ML VIAL IV PRN ×3 (03:36→23:10)
[2019-05-19] MEDS: 0.9 % SODIUM CHLORIDE 10 ML SYRINGE IV SCH ×3 (05:30→20:07)
[2019-05-19 06:06] LABS: ALT/SGPT 17 U/l (0-40); AST/SGOT 27 U/l (0-37); Albumin 3.2 gm/dL (3.2-5.2); Alkaline Phosphatase 71 U/L (39-117); Bilirubin,Direct < 0.2 mg/dL (0.0-0.3); Bilirubin,Total 0.5 mg/dL (0.0-1.0); Blood Urea Nitrogen 8 mg/dl (8-23); Calcium 8.7 mg/dl (8.6-10.4); Carbon Dioxide 31 mmol/L (22-30); Chloride 92 mmol/L (96-108); Globulin 3.1 gm/dL (2.2-3.7); Glomerular Filtration Rate 93; Glucose 143 mg/dL (70-105); Lactate Dehydrogenase 206 U/L (94-250); Phosphorous 2.5 mg/dL (2.7-4.5); Triglycerides 39 mg/dl (<150); Uric Acid 2.7 mg/dL (2.5-8.0)
--- NOTE | 2019-05-19 07:42 | Internal Med Progress Note ---
Medical - PN: Subj Patient information: Note initiated : 05/19/19 at 7:37 am Service Date, if different from initiated Date: [] Patient: Juan F Roblero 73 y/o M admitted on 05/15/19 for Alcohol/facial abrasion. Chief Complaint: [] Interval history: Mr. Roblero is a 73 year old M Who presents to the ED with police. Patient history of alcohol abuse. And the long time at the [facility] and usually walks his way home intoxicated. Well-known to the place. This time he was so intoxicated he was unable to stand and fell in a parking, some kids brought him over to some bushes there was no observed vomiting he did have some facial abrasions. In the ED he was evaluated and found to have a sodium of 119 and thus admission was requested. Unable to get much history from the patient has he is quite drowsy. He did get some Ativan at 3 AM for elevated CIWA. Unable to gather review of systems because of poor mentation. 05/16 Or conversant this morning. No complaints. Received Ativan last night for elevated CIWA scores. 05/17 Patient sleeping but arousable. Nurse reports this morning patient appeared aspirate on water. Patient n.p.o. until seen by speech today. 05/18 No overnight events. Patient was cooperative with care. CIWA low through night and no ativan given. Seen by speech therapy yesterday but patient uncooperative, recommendations for continued n.p.o. Dobbhoff today for nutrition until able to take orally per speech therapy. 05/19 Patient sleeping and somnolent after pain medication given. Also did get 2 mg of Ativan earlier this morning. No overnight events reported. Per the nurse patient was more clear in his conversation this morning at shift change Review of Systems: denies headache/fever/chills/nausea/vomiting/chest or abdominal pain/cough/dyspnea/diarrhea. Otherwise see above. - Constitutional Vitals: Vital Signs Temp Pulse Resp BP Pulse Ox 99.3 F H 75 23 H 153/85 94 05/19/19 03:35 05/19/19 03:35 05/19/19 03:35 05/19/19 03:35 05/19/19 03:35 Period Temp Pulse Resp BP Sys/Hawkins Pulse Ox Last 24 Hr 97.5 F-101.0 F 68-75 09-18 120-192/66-115 85-98 Intake and Output 05/18/19 05/19/19 05/19/19 21:59 05:59 13:59 Intake Total 310 628 Output Total 154 Balance 156 628 Weight 55.384 kg Intake & Output: Intake & Output 05/18/19 05/19/19 05/19/19 21:59 05:59 13:59 Intake Total 310 628 Output Total 154 Balance 156 628 Weight 55.384 kg Intake: Oral 0 Tube Feeding 120 438 GI Tube Flush 190 190 Output: Void Amount 150 # of times incontinent of urine 4 Other: Urine Color Dark Yellow Urine Odor Normal Exam: General: Somnolent after sedative medications, no acute Distress Eyes/N/T: PEERL, pinpoint this morning after pain medication given Head/Neck: neck supple, ecchymosis of the right eye CV: RRR, No murmurs, Pulm: No wheezing/rhonchi abd: soft, nontender, +BS x4 Ext: no clubbing/cyanosis/edema, RUE in splint Neuro: Somnolent after sedative medications, moves all extremities spontaneously skin: warm/dry Medical - PN: Obj Da - Labs CBC & Chem 7: 05/17/19 03:30 05/19/19 03:30 Labs: Abnormal Lab Results 05/19/19 05/18/19 05/17/19 03:30 03:40 10:10 RBC Hgb Hct MCV MPV Lymph % (Auto) Lymph # (Auto) Seg Neutrophils % Lymphocytes % RBC Morphology Macrocytosis Sodium 130 L Chloride 92 L 93 L Carbon Dioxide 31 H BUN 6 L Creatinine 0.6 L Glucose 143 H Calcium 8.5 L Phosphorus 2.5 L Prealbumin 12.2 L 05/17/19 05/17/19 05/16/19 03:30 03:30 03:30 RBC 3.37 L Hgb 11.3 L Hct 33.9 L MCV 100.4 H MPV 6.8 L Lymph % (Auto) 11.9 L Lymph # (Auto) 1.1 L Seg Neutrophils % 83 H Lymphocytes % 14 L RBC Morphology Abnorm A Macrocytosis Occ A Sodium Chloride Carbon Dioxide BUN 5 L Creatinine 0.6 L Glucose Calcium 8.3 L Phosphorus Prealbumin Meds: Medications Acetaminophen (Tylenol) 650 mg PO Q6HP PRN PRN Reason: PAIN/FEVER > 101 Last Admin: 05/18/19 19:27 Dose: 650 mg Documented by: Hydrocodone Bitart/Acetaminophen ([place] 5/325mg) 1 tab PO Q4HP PRN PRN Reason: PAIN LEVEL 3-6 Last Admin: 05/18/19 19:28 Dose: 1 tab Documented by: Albuterol/Ipratropium (Duoneb) 3 ml NEB Q4HP PRN PRN Reason: Shortness Of Breath Last Admin: 05/17/19 09:52 Dose: 3 ml Documented by: Ceftriaxone Sodium (Rocephin) 1 gm IV Q24H [facility] Last Admin: 05/18/19 10:56 Dose: 1 gm Documented by: Chlordiazepoxide HCl (Librium) 50 mg PO Q4HP PRN PRN Reason: Alcohol Withdrawal Last Admin: 05/16/19 20:09 Dose: 50 mg Documented by: Chlorhexidine Gluconate (Peridex) 15 ml SWABMOUTH BID [facility] Last Admin: 05/18/19 20:07 Dose: 15 ml Documented by: Clonidine HCl (Catapres) 0.1 mg PO Q4HP PRN PRN Reason: Alcohol Withdrawal Last Admin: 05/18/19 19:28 Dose: 0.1 mg Documented by: Docusate Sodium (Colace) 100 mg PO BID [facility] Last Admin: 05/18/19 20:08 Dose: Not Given Documented by: Famotidine (Pepcid) 20 mg IV Q12 [facility] Last Admin: 05/18/19 20:07 Dose: 20 mg Documented by: Folic Acid (Folic Acid) 1 mg PO DAILY [facility] Last Admin: 05/18/19 09:25 Dose: Not Given Documented by: Thiamine HCl 100 mg/ Sodium (Chloride) 51 mls @ 50 mls/hr IV DAILY [facility] Last Infusion: 05/18/19 11:50 Dose: Infused Documented by: Magnesium Sulfate (Magnesium Sulfate) 2 gm in 50 mls @ 50 mls/hr IV UD PRN PRN Reason: Magnesium </= 1.6 Iron Carb/Multivit/[place]/Folic Acid (Multivitamin W/Minerals) 1 tab PO DAILY [facility] Last Admin: 05/18/19 09:25 Dose: Not Given Documented by: Lactulose (Cephulac) 10 gm PO DAILYP PRN PRN Reason: Constipation Lorazepam (Ativan) 0 mg IV Q1HP PRN; Protocol PRN Reason: Alcohol Withdrawal Last Admin: 05/19/19 03:36 Dose: 2 mg Documented by: Metoclopramide HCl (Reglan) 10 mg IV Q6HP PRN PRN Reason: Nausea And Vomiting Last Admin: 05/19/19 07:33 Dose: 10 mg Documented by: Morphine Sulfate (Morphine) 1 - 4 mg IV Q3HP PRN PRN Reason: PAIN LEVEL > 6 Last Admin: 05/19/19 03:55 Dose: 2 mg Documented by: Nicotine (Nicoderm) 21 mg TOPICAL DAILY@1000 AGATHA Last Admin: 05/18/19 10:57 Dose: 21 mg Documented by: Nicotine (Nicoderm) 14 mg TOPICAL DAILY@1000 AGATHA Last Admin: 05/18/19 10:57 Dose: 14 mg Documented by: Ondansetron HCl (Zofran) 4 mg IV Q4HP PRN PRN Reason: Nausea And Vomiting Ondansetron HCl (Zofran) 4 mg IV Q4HP PRN PRN Reason: Nausea And Vomiting Polyethylene Glycol (Miralax) 17 gm PO DAILYP PRN PRN Reason: Constipation Senna (Senokot) 2 tab PO HSP PRN PRN Reason: Constipation Sodium Chloride (Saline Flush) 10 ml IV Q8 AGATHA Last Admin: 05/19/19 05:30 Dose: 10 ml Documented by: Medical - PN: A/P - Time Spent With Patient Total time spent is greater than 50% in coordination of care (as documented) at patient's floor/unit and/or counseling patient: - Narrative A/P Narrative: A: *Hyponatremia, beer potomania / hypovolemia: resolved *Fall while intoxicated [employer] resluting in facial/arm fx's: *Right orbital floor Fx w/hemorrage into right Maxillary sinus: vision appears intact *Right humerus, lateral supracondylar fx: splint placed *Likely aspiration with thin liquids (water): *UTI (GNB): *Alcohol intoxication with Withdrawal: improving *Encephalopathy: 2/2 above, improving *COPD (not on home O2): *Tobacco abuse: *anemia: 2/2 trauma, stable P: -CIWA, thiamine/folate/MV -Rocephin -Dr. Odom consulted, reviewed imaging, pt vision intact, conservative management, f/u outpt -discussed with Dr Medina: recs to place in long arm splint and f/u in office -IS -Smoking cessation counseling -NPO until cleard by speech therapy -f/u CXR -beer with dinner when PO intake, TF's currently -pt/ot - -ppx: SCD (hold chemical given facial trauma with bruising & hemorrhage into maxiallary sinus)/ppi Medical - PN: Qual - VTE Deep Vein Thrombosis/Pulmonary Embolism Present on Admission: No
[2019-05-19] MEDS: FAMOTIDINE/PF 20 MG/2 ML VIAL IV SCH ×2 (08:16→20:05)
[2019-05-19] MEDS: HYDROcodone/APAP 5/325MG TABLET PO PRN ×2 (08:17→20:06)
[2019-05-19] MEDS: DOCUSATE SODIUM 100 MG CAPSULE PO SCH (08:17)
[2019-05-19] MEDS: FOLIC ACID 1 MG TABLET PO SCH (08:17)
[2019-05-19] MEDS: chlordiazePOXIDE 25 MG CAPSULE PO PRN (08:18)
[2019-05-19] MEDS: MULTIVIT,THER IRON,CA,FA & MIN 1 TABLET PO SCH (08:18)
[2019-05-19] MEDS: DOCUSATE SODIUM 50 MG/5 ML ORAL.SOL PO SCH ×2 (09:00→20:07)
[2019-05-19] MEDS: cefTRIAXone 1 GM VIAL IV SCH (09:16)
[2019-05-19] MEDS: CHLORHEXIDINE GLUCONATE 1 ML ORAL.SOL SWABMOUTH SCH ×2 (09:17→20:06)
[2019-05-19] MEDS: THIAMINE 100 MG in 0.9 % SODIUM CHLORIDE 50 ML IV SCH (09:19)
--- NOTE | 2019-05-19 10:20 | XRay Report ---
INDICATION: Follow-up left lower lobe infiltrate TECHNIQUE: AP chest x-ray,portable semiupright COMPARISON: Previous chest x-rays dated 05/18/2019, 05/15/2019, 11/06/2008 FINDINGS:Persistent density in left retrocardiac region consistent with left lower lobe pneumonia. Benign volume loss is possible. There is probable left pleural fluid although the left costophrenic angle is sharp. Right lung is negative. Left upper lung is negative. Heart size and vascularity are normal. Previous examination demonstrated a possible nodular density at the right lung base. This is no longer identified and was probably related to nipple shadow IMPRESSION: 1. Persistent left lower lobe infiltrate 2. No interval change since 05/18/2019 Interpreted and Authenticated by: Reinaldo Jerry 05/19/19
[2019-05-19] MEDS: NICOTINE 14 MG PATCH TOPICAL SCH (10:30)
[2019-05-19] MEDS: NICOTINE 21 MG PATCH TOPICAL SCH (10:30)
[2019-05-19] MEDS: cloNIDine HCL 0.1 MG TABLET PO PRN ×2 (13:31→20:05)
[2019-05-20] MEDS: HYDROcodone/APAP 5/325MG TABLET PO PRN ×3 (00:03→22:38)
[2019-05-20] MEDS: cloNIDine HCL 0.1 MG TABLET PO PRN ×2 (01:24→06:39)
[2019-05-20 04:47] LABS: Basophils # (Auto) 0 K/mcL (0.0-0.3); Basophils % (Auto) 0.3 % (0.0-2.0); Eosinophils # (Auto) 0.2 K/mcL (0.0-0.7); Eosinophils % (Auto) 1.9 % (0.0-7.0); Granulocytes % (Auto) 75.8 % (38.0-78.0); Hematocrit 31.4 % (41.0-55.0); Hemoglobin 10.5 g/dL (13.5-16.5); Lymphocytes # (Auto) 0.9 K/mcL (1.5-4.8); Mean Cell Volume 99.2 fL (80.0-100.0); Mean Corpuscular HGB Conc 33.6 g/dL (31.0-36.0); Mean Platelet Volume 6.7 fL (7.4-10.4); Monocytes # (Auto) 1.3 K/mcL (0.1-0.9); Platelet Count 325 K/mcL (140-440); RBC 3.16 M/mcL (4.50-5.90); Red Cell Distribution Width 14.2 % (11.5-14.5); WBC 10.2 K/mcL (4.5-11.0)
[2019-05-20 04:53] LABS: ALT/SGPT 17 U/l (0-40); AST/SGOT 27 U/l (0-37); Alkaline Phosphatase 68 U/L (39-117); Bilirubin,Direct < 0.2 mg/dL (0.0-0.3); Bilirubin,Total 0.5 mg/dL (0.0-1.0); Blood Urea Nitrogen 11 mg/dl (8-23); Calcium 8.6 mg/dl (8.6-10.4); Carbon Dioxide 29 mmol/L (22-30); Chloride 96 mmol/L (96-108); Glomerular Filtration Rate 93; Glucose 123 mg/dL (70-105); Lactate Dehydrogenase 204 U/L (94-250); Phosphorous 2.9 mg/dL (2.7-4.5); Triglycerides 32 mg/dl (<150); Uric Acid 2.2 mg/dL (2.5-8.0)
[2019-05-20] MEDS: 0.9 % SODIUM CHLORIDE 10 ML SYRINGE IV SCH ×3 (05:31→22:40)
--- NOTE | 2019-05-20 07:45 | Internal Med Progress Note ---
Medical - PN: Subj Patient information: Note initiated : 05/20/19 at 7:39 am Service Date, if different from initiated Date: [] Patient: Juan F Roblero 73 y/o M admitted on 05/15/19 for Alcohol/facial abrasion. Chief Complaint: [] Interval history: Mr. Roblero is a 73 year old M Who presents to the ED with police. Patient history of alcohol abuse. And the long time at the [facility] and usually walks his way home intoxicated. Well-known to the place. This time he was so intoxicated he was unable to stand and fell in a parking, some kids brought him over to some bushes there was no observed vomiting he did have some facial abrasions. In the ED he was evaluated and found to have a sodium of 119 and thus admission was requested. Unable to get much history from the patient has he is quite drowsy. He did get some Ativan at 3 AM for elevated CIWA. Unable to gather review of systems because of poor mentation. 05/16 Or conversant this morning. No complaints. Received Ativan last night for elevated CIWA scores. 05/17 Patient sleeping but arousable. Nurse reports this morning patient appeared aspirate on water. Patient n.p.o. until seen by speech today. 05/18 No overnight events. Patient was cooperative with care. CIWA low through night and no ativan given. Seen by speech therapy yesterday but patient uncooperative, recommendations for continued n.p.o. Dobbhoff today for nutrition until able to take orally per speech therapy. 05/19 Patient sleeping and somnolent after pain medication given. Also did get 2 mg of Ativan earlier this morning. No overnight events reported. Per the nurse patient was more clear in his conversation this morning at shift change 05/20 Sitting up in chair. Little more awake and alert and more conversant, but still depressed mentation. No overnight events. Denies any complaints. Review of Systems: denies headache/fever/chills/nausea/vomiting/chest or abdominal pain/cough/dyspnea/diarrhea. Otherwise see above. - Constitutional Vitals: Vital Signs Temp Pulse Resp BP Pulse Ox 98.1 F 113 H 26 H 158/91 93 05/20/19 06:38 05/19/19 20:00 05/20/19 06:38 05/20/19 06:38 05/20/19 06:38 Period Temp Pulse Resp BP Sys/Hawkins Pulse Ox Last 24 Hr 97.8 F-99.8 F 94-113 15-26 95-167/63-144 84-94 Intake and Output 05/19/19 05/20/19 05/20/19 21:59 05:59 13:59 Intake Total 650 742 Output Total 1 4 Balance 649 738 Weight 57.294 kg Intake & Output: Intake & Output 05/19/19 05/20/19 05/20/19 21:59 05:59 13:59 Intake Total 650 742 Output Total 1 4 Balance 649 738 Weight 57.294 kg Intake: Oral 0 Tube Feeding 450 582 GI Tube Flush 200 160 Output: # of times incontinent of urine 1 4 Exam: General: More awake today, sitting in chair currently, no acute Distress Eyes/N/T: PEERL, ecchymosis of the right eye Head/Neck: neck supple, CV: RRR, No murmurs, Pulm: No wheezing/rhonchi abd: soft, nontender, +BS x4 Ext: no clubbing/cyanosis/edema, RUE in splint Neuro: More awake and conversant today although mentation still depressed - improving, moves all extremities spontaneously & follows commands skin: warm/dry Medical - PN: Obj Da - Labs CBC & Chem 7: 05/20/19 03:20 05/20/19 03:20 Labs: Abnormal Lab Results 05/20/19 05/20/19 05/19/19 03:20 03:20 03:30 RBC 3.16 L Hgb 10.5 L Hct 31.4 L MPV 6.7 L Lymph % (Auto) 9.0 L Emery % (Auto) 13.0 H Lymph # (Auto) 0.9 L Emery # (Auto) 1.3 H Sodium Chloride 92 L Carbon Dioxide 31 H BUN Creatinine Glucose 123 H 143 H Uric Acid 2.2 L Calcium Phosphorus 2.5 L Albumin 3.0 L Prealbumin 05/18/19 05/17/19 03:40 10:10 RBC Hgb Hct MPV Lymph % (Auto) Emery % (Auto) Lymph # (Auto) Emery # (Auto) Sodium 130 L Chloride 93 L Carbon Dioxide BUN 6 L Creatinine 0.6 L Glucose Uric Acid Calcium 8.5 L Phosphorus Albumin Prealbumin 12.2 L Meds: Medications Acetaminophen (Tylenol) 650 mg PO Q6HP PRN PRN Reason: PAIN/FEVER > 101 Last Admin: 05/18/19 19:27 Dose: 650 mg Documented by: Hydrocodone Bitart/Acetaminophen ([place] 5/325mg) 0 tab PO Q4HP PRN PRN Reason: PAIN LEVEL 3-6 Last Admin: 05/20/19 07:12 Dose: 1 tab Documented by: Albuterol/Ipratropium (Duoneb) 3 ml NEB Q4HP PRN PRN Reason: Shortness Of Breath Last Admin: 05/17/19 09:52 Dose: 3 ml Documented by: Ceftriaxone Sodium (Rocephin) 1 gm IV Q24H [facility] Last Admin: 05/19/19 09:16 Dose: 1 gm Documented by: Chlordiazepoxide HCl (Librium) 25 mg PO Q4HP PRN PRN Reason: Alcohol Withdrawal Chlorhexidine Gluconate (Peridex) 15 ml SWABMOUTH BID [facility] Last Admin: 05/19/19 20:06 Dose: 15 ml Documented by: Clonidine HCl (Catapres) 0.1 mg PO Q4HP PRN PRN Reason: Alcohol Withdrawal Last Admin: 05/20/19 06:39 Dose: 0.1 mg Documented by: Docusate Sodium (Colace) 100 mg PO BID [facility] Last Admin: 05/19/19 20:07 Dose: 100 mg Documented by: Famotidine (Pepcid) 20 mg IV Q12 [facility] Last Admin: 05/19/19 20:05 Dose: 20 mg Documented by: Folic Acid (Folic Acid) 1 mg PO DAILY [facility] Last Admin: 05/19/19 08:17 Dose: 1 mg Documented by: Thiamine HCl 100 mg/ Sodium (Chloride) 51 mls @ 50 mls/hr IV DAILY [facility] Last Infusion: 05/19/19 10:29 Dose: Infused Documented by: Magnesium Sulfate (Magnesium Sulfate) 2 gm in 50 mls @ 50 mls/hr IV UD PRN PRN Reason: Magnesium </= 1.6 Iron Carb/Multivit/[place]/Folic Acid (Multivitamin W/Minerals) 1 tab PO DAILY [facility] Last Admin: 05/19/19 08:18 Dose: 1 tab Documented by: Lactulose (Cephulac) 10 gm PO DAILYP PRN PRN Reason: Constipation Lorazepam (Ativan) 0 mg IV Q1HP PRN; Protocol PRN Reason: Alcohol Withdrawal Last Admin: 05/19/19 23:10 Dose: 2 mg Documented by: Metoclopramide HCl (Reglan) 10 mg IV Q6HP PRN PRN Reason: Nausea And Vomiting Last Admin: 05/19/19 07:33 Dose: 10 mg Documented by: Morphine Sulfate (Morphine) 1 - 3 mg IV Q3HP PRN PRN Reason: PAIN LEVEL > 6 Last Admin: 05/19/19 18:46 Dose: 2 mg Documented by: Nicotine (Nicoderm) 21 mg TOPICAL DAILY@1000 AGATHA Last Admin: 05/19/19 10:30 Dose: 21 mg Documented by: Nicotine (Nicoderm) 14 mg TOPICAL DAILY@1000 AGATHA Last Admin: 05/19/19 10:30 Dose: 14 mg Documented by: Ondansetron HCl (Zofran) 4 mg IV Q4HP PRN PRN Reason: Nausea And Vomiting Ondansetron HCl (Zofran) 4 mg IV Q4HP PRN PRN Reason: Nausea And Vomiting Polyethylene Glycol (Miralax) 17 gm PO DAILYP PRN PRN Reason: Constipation Senna (Senokot) 2 tab PO HSP PRN PRN Reason: Constipation Sodium Chloride (Saline Flush) 10 ml IV Q8 [facility] Last Admin: 05/20/19 05:31 Dose: 10 ml Documented by: Medical - PN: A/P - Time Spent With Patient Total time spent is greater than 50% in coordination of care (as documented) at patient's floor/unit and/or counseling patient: - Narrative A/P Narrative: A: *Hyponatremia, beer potomania / hypovolemia: resolved *Fall while intoxicated [employer] resluting in facial/arm fx's: *Right orbital floor Fx w/hemorrage into right Maxillary sinus: vision appears intact *Right humerus, lateral supracondylar fx: splint placed *Likely aspiration with thin liquids (water): *UTI (E. coli, strep viridans likely nonpathogenic): *Alcohol intoxication with Withdrawal: improving *Encephalopathy: 2/2 above, improving slowly *COPD (not on home O2): *Tobacco abuse: *anemia: 2/2 trauma, stable P: -CIWA, thiamine/folate/MV -Rocephin -Dr. Odom consulted, reviewed imaging, pt vision intact, conservative management, f/u outpt -discussed with Dr Medina: recs to place in long arm splint and f/u in office -IS -Smoking cessation counseling -NPO until cleard by speech therapy, TF's currently -pt/ot -CM for placement -ppx: SCD (hold chemical given facial trauma with bruising & hemorrhage into maxiallary sinus)/ppi Medical - PN: Qual - VTE Deep Vein Thrombosis/Pulmonary Embolism Present on Admission: No
[2019-05-20] MEDS: DOCUSATE SODIUM 50 MG/5 ML ORAL.SOL PO SCH ×2 (08:43→22:38)
[2019-05-20] MEDS: FOLIC ACID 1 MG TABLET PO SCH (08:44)
[2019-05-20] MEDS: FAMOTIDINE/PF 20 MG/2 ML VIAL IV SCH ×2 (08:48→22:40)
[2019-05-20] MEDS: MULTIVIT,THER IRON,CA,FA & MIN 1 TABLET PO SCH (08:48)
[2019-05-20] MEDS: CHLORHEXIDINE GLUCONATE 1 ML ORAL.SOL SWABMOUTH SCH ×2 (08:48→22:38)
[2019-05-20] MEDS: THIAMINE 100 MG in 0.9 % SODIUM CHLORIDE 50 ML IV SCH (08:49)
[2019-05-20] MEDS: cefTRIAXone 1 GM VIAL IV SCH (08:49)
[2019-05-20] MEDS: NICOTINE 14 MG PATCH TOPICAL SCH (12:41)
[2019-05-20] MEDS: NICOTINE 21 MG PATCH TOPICAL SCH (12:41)
[2019-05-20] MEDS: LORazepam 2 MG/ML VIAL IV PRN (23:45)
[2019-05-21] MEDS: cloNIDine HCL 0.1 MG TABLET PO PRN ×2 (00:22→17:38)
[2019-05-21] MEDS: LORazepam 2 MG/ML VIAL IV PRN ×6 (00:30→23:45)
[2019-05-21] MEDS: 0.9 % SODIUM CHLORIDE 10 ML SYRINGE IV SCH ×3 (05:28→20:57)
--- NOTE | 2019-05-21 07:48 | Internal Med Progress Note ---
Medical - PN: Subj Patient information: Note initiated : 05/21/19 at 7:45 am Service Date, if different from initiated Date: [] Patient: Juan F Roblero 73 y/o M admitted on 05/15/19 for Alcohol/facial abrasion. Chief Complaint: [] Interval history: Mr. Roblero is a 73 year old M Who presents to the ED with police. Patient history of alcohol abuse. And the long time at the [facility] and usually walks his way home intoxicated. Well-known to the place. This time he was so intoxicated he was unable to stand and fell in a parking, some kids brought him over to some bushes there was no observed vomiting he did have some facial abrasions. In the ED he was evaluated and found to have a sodium of 119 and thus admission was requested. Unable to get much history from the patient has he is quite drowsy. He did get some Ativan at 3 AM for elevated CIWA. Unable to gather review of systems because of poor mentation. 05/16 Or conversant this morning. No complaints. Received Ativan last night for elevated CIWA scores. 05/17 Patient sleeping but arousable. Nurse reports this morning patient appeared aspirate on water. Patient n.p.o. until seen by speech today. 05/18 No overnight events. Patient was cooperative with care. CIWA low through night and no ativan given. Seen by speech therapy yesterday but patient uncooperative, recommendations for continued n.p.o. Dobbhoff today for nutrition until able to take orally per speech therapy. 05/19 Patient sleeping and somnolent after pain medication given. Also did get 2 mg of Ativan earlier this morning. No overnight events reported. Per the nurse patient was more clear in his conversation this morning at shift change 05/20 Sitting up in chair. Little more awake and alert and more conversant, but still depressed mentation. No overnight events. Denies any complaints. 05/21 Needs assistance getting up in the chair. Patient not able to walk safely at this point. Has been agitated overnight. More verbal today and wanting to leave. On room air. Review of Systems: denies headache/fever/chills/nausea/vomiting/chest or abdominal pain/coug h/dyspnea/diarrhea. Otherwise see above. - Constitutional Vitals: Vital Signs Temp Pulse Resp BP Pulse Ox 97.3 F 95 H 20 138/75 91 05/21/19 04:45 05/20/19 23:27 05/21/19 04:45 05/21/19 04:45 05/21/19 04:45 Period Temp Pulse Resp BP Sys/Hawkins Pulse Ox Last 24 Hr 97.3 F-99.3 F 95-103 18-22 114-144/62-84 91-92 Intake and Output 05/20/19 05/21/19 05/21/19 21:59 05:59 13:59 Intake Total 400 1474 Output Total 207 2 Balance 193 1472 Weight 58.105 kg Intake & Output: Intake & Output 05/20/19 05/21/19 05/21/19 21:59 05:59 13:59 Intake Total 400 1474 Output Total 207 2 Balance 193 1472 Weight 58.105 kg Intake: Oral 100 Tube Feeding 200 1474 GI Tube Flush 100 Output: Gastric Drainage 5 0 Left Nare Dobhoff 5 0 Void Amount 200 # of times incontinent of urine 2 2 Other: # Bowel Movements 1 0 Exam: General: Awake, no acute Distress Eyes/N/T: PEERL, ecchymosis of the right eye Head/Neck: neck supple, CV: RRR, No murmurs, Pulm: No wheezing/rhonchi abd: soft, nontender, +BS x4 Ext: no clubbing/cyanosis/edema, RUE in splint Neuro: Awake and conversant however can be difficult to understand his mumbling answers, moves all extremities spontaneously & follows commands skin: warm/dry Medical - PN: Obj Da - Labs CBC & Chem 7: 05/20/19 03:20 05/20/19 03:20 Labs: Abnormal Lab Results 05/20/19 05/20/19 05/19/19 03:20 03:20 03:30 RBC 3.16 L Hgb 10.5 L Hct 31.4 L MPV 6.7 L Lymph % (Auto) 9.0 L [place] % (Auto) 13.0 H Lymph # (Auto) 0.9 L [place] # (Auto) 1.3 H Chloride 92 L Carbon Dioxide 31 H Glucose 123 H 143 H Uric Acid 2.2 L Phosphorus 2.5 L Albumin 3.0 L Prealbumin 05/17/19 10:10 RBC Hgb Hct MPV Lymph % (Auto) [place] % (Auto) Lymph # (Auto) [place] # (Auto) Chloride Carbon Dioxide Glucose Uric Acid Phosphorus Albumin Prealbumin 12.2 L Meds: Medications Acetaminophen (Tylenol) 650 mg PO Q6HP PRN PRN Reason: PAIN/FEVER > 101 Last Admin: 05/18/19 19:27 Dose: 650 mg Documented by: Hydrocodone Bitart/Acetaminophen ([place] 5/325mg) 0 tab PO Q4HP PRN PRN Reason: PAIN LEVEL 3-6 Last Admin: 05/20/19 22:38 Dose: 1 tab Documented by: Albuterol/Ipratropium (Duoneb) 3 ml NEB Q4HP PRN PRN Reason: Shortness Of Breath Last Admin: 05/17/19 09:52 Dose: 3 ml Documented by: Ceftriaxone Sodium (Rocephin) 1 gm IV Q24H [facility] Last Admin: 05/20/19 08:49 Dose: 1 gm Documented by: Chlordiazepoxide HCl (Librium) 25 mg PO Q4HP PRN PRN Reason: Alcohol Withdrawal Chlorhexidine Gluconate (Peridex) 15 ml SWABMOUTH BID [facility] Last Admin: 05/20/19 22:38 Dose: 15 ml Documented by: Clonidine HCl (Catapres) 0.1 mg PO Q4HP PRN PRN Reason: Alcohol Withdrawal Last Admin: 05/21/19 00:22 Dose: 0.1 mg Documented by: Docusate Sodium (Colace) 100 mg PO BID [facility] Last Admin: 05/20/19 22:38 Dose: 100 mg Documented by: Famotidine (Pepcid) 20 mg IV Q12 [facility] Last Admin: 05/20/19 22:40 Dose: 20 mg Documented by: Folic Acid (Folic Acid) 1 mg PO DAILY [facility] Last Admin: 05/20/19 08:44 Dose: 1 mg Documented by: Thiamine HCl 100 mg/ Sodium (Chloride) 51 mls @ 50 mls/hr IV DAILY [facility] Last Infusion: 05/20/19 10:00 Dose: Infused Documented by: Magnesium Sulfate (Magnesium Sulfate) 2 gm in 50 mls @ 50 mls/hr IV UD PRN PRN Reason: Magnesium </= 1.6 Iron Carb/Multivit/Process Excellence Manager/Folic Acid (Multivitamin W/Minerals) 1 tab PO DAILY [facility] Last Admin: 05/20/19 08:48 Dose: 1 tab Documented by: Lactulose (Cephulac) 10 gm PO DAILYP PRN PRN Reason: Constipation Lorazepam (Ativan) 0 mg IV Q1HP PRN; Protocol PRN Reason: Alcohol Withdrawal Last Admin: 05/21/19 02:18 Dose: 1 mg Documented by: Metoclopramide HCl (Reglan) 10 mg IV Q6HP PRN PRN Reason: Nausea And Vomiting Last Admin: 05/19/19 07:33 Dose: 10 mg Documented by: Morphine Sulfate (Morphine) 1 - 3 mg IV Q3HP PRN PRN Reason: PAIN LEVEL > 6 Last Admin: 05/19/19 18:46 Dose: 2 mg Documented by: Nicotine (Nicoderm) 21 mg TOPICAL DAILY@1000 [facility] Last Admin: 05/20/19 12:41 Dose: 21 mg Documented by: Nicotine (Nicoderm) 14 mg TOPICAL DAILY@1000 [facility] Last Admin: 05/20/19 12:41 Dose: 14 mg Documented by: Ondansetron HCl (Zofran) 4 mg IV Q4HP PRN PRN Reason: Nausea And Vomiting Ondansetron HCl (Zofran) 4 mg IV Q4HP PRN PRN Reason: Nausea And Vomiting Polyethylene Glycol (Miralax) 17 gm PO DAILYP PRN PRN Reason: Constipation Senna (Senokot) 2 tab PO HSP PRN PRN Reason: Constipation Sodium Chloride (Saline Flush) 10 ml IV Q8 [facility] Last Admin: 05/21/19 05:28 Dose: 10 ml Documented by: Medical - PN: A/P - Time Spent With Patient Total time spent is greater than 50% in coordination of care (as documented) at patient's floor/unit and/or counseling patient: - Narrative A/P Narrative: A: *Alcohol intoxication with Withdrawal: improving *Encephalopathy: 2/2 above, improving slowly *Hyponatremia, beer potomania / hypovolemia: resolved *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 coli, strep viridans likely nonpathogenic): *COPD (not on home O2): *Tobacco abuse: *anemia: 2/2 trauma, stable P: -CIWA, thiamine/folate/MV -Rocephin -Dr. Odom consulted, reviewed imaging, pt vision intact, conservative management, f/u outpt -discussed with Dr Medina: recs to place in long arm splint and f/u in office -IS -Smoking cessation counseling -NPO until cleard by speech therapy, TF's currently -pt/ot -CM for placement -ppx: SCD (hold chemical given facial trauma with bruising & hemorrhage into maxiallary sinus)/ppi Medical - PN: Qual - VTE Deep Vein Thrombosis/Pulmonary Embolism Present on Admission: No
[2019-05-21] MEDS: FAMOTIDINE/PF 20 MG/2 ML VIAL IV SCH ×2 (08:49→20:55)
[2019-05-21] MEDS: DOCUSATE SODIUM 50 MG/5 ML ORAL.SOL PO SCH ×2 (08:49→20:54)
[2019-05-21] MEDS: MULTIVIT,THER IRON,CA,FA & MIN 1 TABLET PO SCH (08:49)
[2019-05-21] MEDS: THIAMINE 100 MG in 0.9 % SODIUM CHLORIDE 50 ML IV SCH (08:49)
[2019-05-21] MEDS: cefTRIAXone 1 GM VIAL IV SCH (08:49)
[2019-05-21] MEDS: FOLIC ACID 1 MG TABLET PO SCH (08:49)
[2019-05-21] MEDS: ACETAMINOPHEN 325 MG TABLET PO PRN (08:50)
--- NOTE | 2019-05-21 08:58 | XRay Report ---
INDICATION: Follow-up pneumonia TECHNIQUE: AP chest x-ray,portable semiupright COMPARISON: Previous chest x-rays dated 05/19/2019, 05/15/2019 FINDINGS:Improved left lower lobe. There is mild residual density but the infiltrate has improved significantly since 05/19/2019. Right lung remains negative. Heart size and vascularity are normal. IMPRESSION: 1. Significant interval improvement since 05/19/2019 2. Mild residual left lower lobe density as above Interpreted and Authenticated by: Reinaldo Jerry 05/21/19
[2019-05-21] MEDS: CHLORHEXIDINE GLUCONATE 1 ML ORAL.SOL SWABMOUTH SCH ×2 (10:03→20:56)
[2019-05-21] MEDS: NICOTINE 14 MG PATCH TOPICAL SCH (10:28)
[2019-05-21] MEDS: NICOTINE 21 MG PATCH TOPICAL SCH (10:29)
[2019-05-21] MEDS ORDERED: HALOPERIDOL LACTATE 5 MG/ML VIAL IV ONE (17:30)
[2019-05-21] MEDS: HYDROcodone/APAP 5/325MG TABLET PO PRN (17:38)
[2019-05-21] MEDS: chlordiazePOXIDE 25 MG CAPSULE PO PRN (17:39)
[2019-05-21] MEDS ORDERED: HALOPERIDOL LACTATE 5 MG/ML VIAL ONE (18:52)
[2019-05-21] MEDS ORDERED: MELATONIN 3 MG TABLET PO SCH (21:00)
[2019-05-22] MEDS: 0.9 % SODIUM CHLORIDE 10 ML SYRINGE IV SCH ×3 (05:26→20:42)
[2019-05-22 06:04] LABS: Basophils # (Auto) 0 K/mcL (0.0-0.3); Basophils % (Auto) 0.3 % (0.0-2.0); Eosinophils # (Auto) 0.2 K/mcL (0.0-0.7); Granulocytes % (Auto) 74.4 % (38.0-78.0); Hematocrit 33.2 % (41.0-55.0); Hemoglobin 11.1 g/dL (13.5-16.5); Lymphocytes # (Auto) 0.9 K/mcL (1.5-4.8); Lymphocytes % (Auto) 10.5 % (15.5-49.0); Mean Cell Volume 100.3 fL (80.0-100.0); Mean Corpuscular HGB Conc 33.5 g/dL (31.0-36.0); Mean Platelet Volume 6.9 fL (7.4-10.4); Monocytes # (Auto) 1.1 K/mcL (0.1-0.9); Monocytes % (Auto) 12.8 % (1.0-12.0); Platelet Count 425 K/mcL (140-440); RBC 3.31 M/mcL (4.50-5.90); Red Cell Distribution Width 13.9 % (11.5-14.5); WBC 8.9 K/mcL (4.5-11.0)
[2019-05-22 06:31] LABS: Blood Urea Nitrogen 9 mg/dl (8-23); Calcium 8.9 mg/dl (8.6-10.4); Carbon Dioxide 29 mmol/L (22-30); Chloride 94 mmol/L (96-108); Glomerular Filtration Rate 93; Glucose 134 mg/dL (70-105)
[2019-05-22] MEDS: ACETAMINOPHEN 325 MG TABLET PO PRN (06:39)
[2019-05-22] MEDS: chlordiazePOXIDE 25 MG CAPSULE PO PRN ×3 (06:44→20:40)
[2019-05-22] MEDS: cloNIDine HCL 0.1 MG TABLET PO PRN ×2 (06:44→15:08)
--- NOTE | 2019-05-22 07:32 | Internal Med Progress Note ---
Medical - PN: Subj Patient information: Note initiated : 05/22/19 at 7:28 am Service Date, if different from initiated Date: [] Patient: Juan F Roblero 73 y/o M admitted on 05/15/19 for Alcohol/facial abrasion. Chief Complaint: [] Interval history: Mr. Roblero is a 73 year old M Who presents to the ED with police. Patient history of alcohol abuse. And the long time at the [facility] and usually walks his way home intoxicated. Well-known to the place. This time he was so intoxicated he was unable to stand and fell in a parking, some kids brought him over to some bushes there was no observed vomiting he did have some facial abrasions. In the ED he was evaluated and found to have a sodium of 119 and thus admission was requested. Unable to get much history from the patient has he is quite drowsy. He did get some Ativan at 3 AM for elevated CIWA. Unable to gather review of systems because of poor mentation. 05/16 Or conversant this morning. No complaints. Received Ativan last night for elevated CIWA scores. 05/17 Patient sleeping but arousable. Nurse reports this morning patient appeared aspirate on water. Patient n.p.o. until seen by speech today. 05/18 No overnight events. Patient was cooperative with care. CIWA low through night and no ativan given. Seen by speech therapy yesterday but patient uncooperative, recommendations for continued n.p.o. Dobbhoff today for nutrition until able to take orally per speech therapy. 05/19 Patient sleeping and somnolent after pain medication given. Also did get 2 mg of Ativan earlier this morning. No overnight events reported. Per the nurse patient was more clear in his conversation this morning at shift change 05/20 Sitting up in chair. Little more awake and alert and more conversant, but still depressed mentation. No overnight events. Denies any complaints. 05/21 Needs assistance getting up in the chair. Patient not able to walk safely at this point. Has been agitated overnight. More verbal today and wanting to leave. On room air. 05/22 Agitated last night pulling at lines. Haldol given first and requiring benzodiazepine. Patient up most of the night finally after the medications he is now sleeping. Review of Systems: Unable to get review of systems because of sedation - Constitutional Vitals: Vital Signs Temp Pulse Resp BP Pulse Ox 98.5 F 95 H 28 H 143/79 95 05/21/19 15:32 05/20/19 23:27 05/21/19 15:32 05/21/19 15:32 05/21/19 15:32 Period Temp Pulse Resp BP Sys/Hawkins Pulse Ox Last 24 Hr 98.5 F 28 143-169/79-99 95 Intake and Output 05/21/19 05/22/19 05/22/19 21:59 05:59 13:59 Intake Total 868 812 Output Total 2 Balance 866 812 Weight 59.421 kg Intake & Output: Intake & Output 05/21/19 05/22/19 05/22/19 21:59 05:59 13:59 Intake Total 868 812 Output Total 2 Balance 866 812 Weight 59.421 kg Intake: Oral 60 Tube Feeding 558 712 GI Tube Flush 250 100 Output: # of times incontinent of urine 2 Other: Stool Size Copious Stool Color Brown Yellow Stool Consistency Soft Dry and Hard Formed [place] # Bowel Movements 1 # of times incontinent of 1 Bowels Exam: General: Sleeping no acute Distress Eyes/N/T: PEERL, ecchymosis of the right eye Head/Neck: neck supple, CV: RRR, No murmurs, Pulm: No wheezing/rhonchi abd: soft, nontender, +BS x4 Ext: no clubbing/cyanosis/edema, RUE in splint Neuro: Sleeping, sedated from medications and not sleeping last night. Moves all extremities to touch. skin: warm/dry Medical - PN: Obj Da - Labs CBC & Chem 7: 05/22/19 04:20 05/22/19 04:20 Labs: Abnormal Lab Results 05/22/19 05/22/19 05/20/19 04:20 04:20 03:20 RBC 3.31 L 3.16 L Hgb 11.1 L 10.5 L Hct 33.2 L 31.4 L MCV 100.3 H MPV 6.9 L 6.7 L Lymph % (Auto) 10.5 L 9.0 L [place] % (Auto) 12.8 H 13.0 H Lymph # (Auto) 0.9 L 0.9 L [place] # (Auto) 1.1 H 1.3 H Chloride 94 L Glucose 134 H Uric Acid Albumin 05/20/19 03:20 RBC Hgb Hct MCV MPV Lymph % (Auto) [place] % (Auto) Lymph # (Auto) [place] # (Auto) Chloride Glucose 123 H Uric Acid 2.2 L Albumin 3.0 L Meds: Medications Acetaminophen (Tylenol) 650 mg PO Q6HP PRN PRN Reason: PAIN/FEVER > 101 Last Admin: 05/22/19 06:39 Dose: 650 mg Documented by: Hydrocodone Bitart/Acetaminophen ([place] 5/325mg) 0 tab PO Q4HP PRN PRN Reason: PAIN LEVEL 3-6 Last Admin: 05/21/19 17:38 Dose: 1 tab Documented by: Albuterol/Ipratropium (Duoneb) 3 ml NEB Q4HP PRN PRN Reason: Shortness Of Breath Last Admin: 05/17/19 09:52 Dose: 3 ml Documented by: Ceftriaxone Sodium (Rocephin) 1 gm IV Q24H [facility] Last Admin: 05/21/19 08:49 Dose: 1 gm Documented by: Chlordiazepoxide HCl (Librium) 25 mg PO Q4HP PRN PRN Reason: Alcohol Withdrawal Last Admin: 05/22/19 06:44 Dose: 25 mg Documented by: Chlorhexidine Gluconate (Peridex) 15 ml SWABMOUTH BID [facility] Last Admin: 05/21/19 20:56 Dose: 15 ml Documented by: Clonidine HCl (Catapres) 0.1 mg PO Q4HP PRN PRN Reason: Alcohol Withdrawal Last Admin: 05/22/19 06:44 Dose: 0.1 mg Documented by: Docusate Sodium (Colace) 100 mg PO BID [facility] Last Admin: 05/21/19 20:54 Dose: Not Given Documented by: Famotidine (Pepcid) 20 mg IV Q12 [facility] Last Admin: 05/21/19 20:55 Dose: 20 mg Documented by: Folic Acid (Folic Acid) 1 mg PO DAILY [facility] Last Admin: 05/21/19 08:49 Dose: 1 mg Documented by: Thiamine HCl 100 mg/ Sodium (Chloride) 51 mls @ 50 mls/hr IV DAILY [facility] Last Infusion: 05/21/19 09:55 Dose: Infused Documented by: Magnesium Sulfate (Magnesium Sulfate) 2 gm in 50 mls @ 50 mls/hr IV UD PRN PRN Reason: Magnesium </= 1.6 Iron Carb/Multivit/[place]/Folic Acid (Multivitamin W/Minerals) 1 tab PO DAILY [facility] Last Admin: 05/21/19 08:49 Dose: 1 tab Documented by: Lactulose (Cephulac) 10 gm PO DAILYP PRN PRN Reason: Constipation Last Admin: 05/21/19 15:22 Dose: 10 gm Documented by: Lorazepam (Ativan) 0 mg IV Q1HP PRN; Protocol PRN Reason: Alcohol Withdrawal Last Admin: 05/21/19 23:45 Dose: 1 mg Documented by: Metoclopramide HCl (Reglan) 10 mg IV Q6HP PRN PRN Reason: Nausea And Vomiting Last Admin: 05/19/19 07:33 Dose: 10 mg Documented by: Morphine Sulfate (Morphine) 1 - 3 mg IV Q3HP PRN PRN Reason: PAIN LEVEL > 6 Last Admin: 05/19/19 18:46 Dose: 2 mg Documented by: Nicotine (Nicoderm) 21 mg TOPICAL DAILY@1000 [facility] Last Admin: 05/21/19 10:29 Dose: 21 mg Documented by: Nicotine (Nicoderm) 14 mg TOPICAL DAILY@1000 [facility] Last Admin: 05/21/19 10:28 Dose: 14 mg Documented by: Ondansetron HCl (Zofran) 4 mg IV Q4HP PRN PRN Reason: Nausea And Vomiting Ondansetron HCl (Zofran) 4 mg IV Q4HP PRN PRN Reason: Nausea And Vomiting Polyethylene Glycol (Miralax) 17 gm PO DAILYP PRN PRN Reason: Constipation Senna (Senokot) 2 tab PO HSP PRN PRN Reason: Constipation Sodium Chloride (Saline Flush) 10 ml IV Q8 [facility] Last Admin: 05/22/19 05:26 Dose: 10 ml Documented by: Medical - PN: A/P - Time Spent With Patient Total time spent is greater than 50% in coordination of care (as documented) at patient's floor/unit and/or counseling patient: - Narrative A/P Narrative: A: *Alcohol intoxication with Withdrawal: improving *Encephalopathy: 2/2 above superimposed on likely underlying dementia, improving slowly -CT with cerebral atrophy *Hyponatremia, beer potomania / hypovolemia: resolved *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 coli, strep viridans likely nonpathogenic): *COPD (not on home O2): *Tobacco abuse: *anemia: 2/2 trauma, stable P: -CIWA, thiamine/folate/MV -Rocephin -Dr. Odom consulted, reviewed imaging, pt vision intact, conservative management, f/u outpt -discussed with Dr Medina: recs to place in long arm splint and f/u in office -IS -Smoking cessation counseling -NPO until cleard by speech therapy, TF's currently -pt/ot -CM for placement -ppx: SCD (holding chemical given facial trauma with bruising & hemorrhage into maxiallary sinus)/ppi Medical - PN: Qual - VTE Deep Vein Thrombosis/Pulmonary Embolism Present on Admission: No
[2019-05-22] MEDS: MULTIVIT,THER IRON,CA,FA & MIN 1 TABLET PO SCH (09:54)
[2019-05-22] MEDS: DOCUSATE SODIUM 50 MG/5 ML ORAL.SOL PO SCH ×2 (09:54→20:41)
[2019-05-22] MEDS: FOLIC ACID 1 MG TABLET PO SCH (09:54)
[2019-05-22] MEDS: FAMOTIDINE/PF 20 MG/2 ML VIAL IV SCH ×2 (09:54→20:40)
[2019-05-22] MEDS: CHLORHEXIDINE GLUCONATE 1 ML ORAL.SOL SWABMOUTH SCH ×2 (09:55→20:40)
[2019-05-22] MEDS: cefTRIAXone 1 GM VIAL IV SCH (09:56)
[2019-05-22] MEDS: THIAMINE 100 MG in 0.9 % SODIUM CHLORIDE 50 ML IV SCH (09:57)
[2019-05-22] MEDS: NICOTINE 14 MG PATCH TOPICAL SCH (10:22)
[2019-05-22] MEDS: NICOTINE 21 MG PATCH TOPICAL SCH (10:22)
[2019-05-22] MEDS: HYDROcodone/APAP 5/325MG TABLET PO PRN ×2 (15:08→20:40)
[2019-05-23] MEDS: HYDROcodone/APAP 5/325MG TABLET PO PRN ×3 (01:20→20:06)
[2019-05-23] MEDS: chlordiazePOXIDE 25 MG CAPSULE PO PRN (01:20)
[2019-05-23] MEDS: 0.9 % SODIUM CHLORIDE 10 ML SYRINGE IV SCH ×4 (05:18→20:06)
[2019-05-23 05:56] LABS: ALT/SGPT 21 U/l (0-40); AST/SGOT 26 U/l (0-37); Albumin 3.1 gm/dL (3.2-5.2); Alkaline Phosphatase 84 U/L (39-117); Bilirubin,Direct < 0.2 mg/dL (0.0-0.3); Bilirubin,Total 0.3 mg/dL (0.0-1.0); Blood Urea Nitrogen 13 mg/dl (8-23); Calcium 8.7 mg/dl (8.6-10.4); Carbon Dioxide 31 mmol/L (22-30); Chloride 95 mmol/L (96-108); Globulin 3.1 gm/dL (2.2-3.7); Glomerular Filtration Rate 93; Glucose 111 mg/dL (70-105); Lactate Dehydrogenase 198 U/L (94-250); Phosphorous 4.4 mg/dL (2.7-4.5); Triglycerides 41 mg/dl (<150); Uric Acid 1.9 mg/dL (2.5-8.0)
[2019-05-23] MEDS: DOCUSATE SODIUM 50 MG/5 ML ORAL.SOL PO SCH ×4 (07:53→20:05)
[2019-05-23] MEDS: FOLIC ACID 1 MG TABLET PO SCH (07:59)
[2019-05-23] MEDS: FAMOTIDINE/PF 20 MG/2 ML VIAL IV SCH ×2 (08:01→20:05)
[2019-05-23] MEDS: MULTIVIT,THER IRON,CA,FA & MIN 1 TABLET PO SCH (09:00)
--- NOTE | 2019-05-23 09:27 | Internal Med Progress Note ---
Medical - PN: Subj Patient information: Note initiated : 05/23/19 at 9:23 am Service Date, if different from initiated Date: [] Patient: Juan F Roblero 73 y/o M admitted on 05/15/19 for Alcohol/facial abrasion. Chief Complaint: [] Interval history: Mr. Roblero is a 73 year old M Who presents to the ED with police. Patient history of alcohol abuse. And the long time at the [facility] and usually walks his way home intoxicated. Well-known to the place. This time he was so intoxicated he was unable to stand and fell in a parking, some kids brought him over to some bushes there was no observed vomiting he did have some facial abrasions. In the ED he was evaluated and found to have a sodium of 119 and thus admission was requested. Unable to get much history from the patient has he is quite drowsy. He did get some Ativan at 3 AM for elevated CIWA. Unable to gather review of systems because of poor mentation. 05/16 Or conversant this morning. No complaints. Received Ativan last night for elevated CIWA scores. 05/17 Patient sleeping but arousable. Nurse reports this morning patient appeared aspirate on water. Patient n.p.o. until seen by speech today. 05/18 No overnight events. Patient was cooperative with care. CIWA low through night and no ativan given. Seen by speech therapy yesterday but patient uncooperative, recommendations for continued n.p.o. Dobbhoff today for nutrition until able to take orally per speech therapy. 05/19 Patient sleeping and somnolent after pain medication given. Also did get 2 mg of Ativan earlier this morning. No overnight events reported. Per the nurse patient was more clear in his conversation this morning at shift change 05/20 Sitting up in chair. Little more awake and alert and more conversant, but still depressed mentation. No overnight events. Denies any complaints. 05/21 Needs assistance getting up in the chair. Patient not able to walk safely at this point. Has been agitated overnight. More verbal today and wanting to leave. On room air. 05/22 Agitated last night pulling at lines. Haldol given first and requiring benzodiazepine. Patient up most of the night finally after the medications he is now sleeping. 05/23-patient remains minimally arousable. Unable to participate in conversations. CIWA score continues to be around 11. Continue management per protocol. Continuing tube feeds at 55 an hour. Continue attempting PT OT/oral diet to support once patient awake. Repeat head imaging/ammonia/ABG today. On antibiotic coverage for E. coli UTI. - Constitutional Vitals: Vital Signs Temp Pulse Resp BP Pulse Ox 97.1 F 91 H 18 132/72 95 05/23/19 07:52 05/22/19 20:02 05/23/19 07:52 05/23/19 07:52 05/23/19 07:52 Period Temp Pulse Resp BP Sys/Hawkins Pulse Ox Last 24 Hr 97.1 F-98.8 F 78-91 16-20 102-132/56-72 86-95 Intake and Output 05/22/19 05/23/19 05/23/19 21:59 05:59 13:59 Intake Total 908 1382 Output Total 2 2 Balance 906 1380 Weight 125 lb 3.2 oz Intake & Output: Intake & Output 05/22/19 05/23/19 05/23/19 21:59 05:59 13:59 Intake Total 908 1382 Output Total 2 2 Balance 906 1380 Weight 125 lb 3.2 oz Intake: Oral 0 Tube Feeding 558 1122 GI Tube Flush 230 260 Other 120 Output: # of times incontinent of urine 2 2 Other: # of times incontinent of 1 Bowels General appearance: no acute distress Exam: Drowsy Dobbhoff tube in place multiple facial bruising/ecchymosis right eye Regular rate and rhythm Nontender nondistended abdomen No telemetry event Medical - PN: Obj Da - Labs CBC & Chem 7: 05/22/19 04:20 05/23/19 03:38 Labs: Abnormal Lab Results 05/23/19 05/22/19 05/22/19 03:38 04:20 04:20 RBC 3.31 L Hgb 11.1 L Hct 33.2 L MCV 100.3 H MPV 6.9 L Lymph % (Auto) 10.5 L [place] % (Auto) 12.8 H Lymph # (Auto) 0.9 L [place] # (Auto) 1.1 H Chloride 95 L 94 L Carbon Dioxide 31 H Glucose 111 H 134 H Uric Acid 1.9 L Albumin 3.1 L Meds: Medications Acetaminophen (Tylenol) 650 mg PO Q6HP PRN PRN Reason: PAIN/FEVER > 101 Last Admin: 05/22/19 06:39 Dose: 650 mg Documented by: Hydrocodone Bitart/Acetaminophen (Walker 5/325mg) 0 tab PO Q6HP PRN PRN Reason: PAIN LEVEL 3-6 Last Admin: 05/23/19 01:20 Dose: 1 tab Documented by: Albuterol/Ipratropium (Duoneb) 3 ml NEB Q4HP PRN PRN Reason: Shortness Of Breath Last Admin: 05/17/19 09:52 Dose: 3 ml Documented by: Ceftriaxone Sodium (Rocephin) 1 gm IV Q24H [facility] Last Admin: 05/22/19 09:56 Dose: 1 gm Documented by: Chlordiazepoxide HCl (Librium) 25 mg PO Q6HP PRN PRN Reason: Alcohol Withdrawal Last Admin: 05/23/19 01:20 Dose: 25 mg Documented by: Chlorhexidine Gluconate (Peridex) 15 ml SWABMOUTH BID [facility] Last Admin: 05/22/19 20:40 Dose: 15 ml Documented by: Clonidine HCl (Catapres) 0.1 mg PO Q4HP PRN PRN Reason: Alcohol Withdrawal Last Admin: 05/22/19 15:08 Dose: 0.1 mg Documented by: Docusate Sodium (Colace) 100 mg PO BID [facility] Last Admin: 05/23/19 07:53 Dose: Not Given Documented by: Famotidine (Pepcid) 20 mg IV Q12 [facility] Last Admin: 05/23/19 08:01 Dose: 20 mg Documented by: Folic Acid (Folic Acid) 1 mg PO DAILY [facility] Last Admin: 05/23/19 07:59 Dose: 1 mg Documented by: Thiamine HCl 100 mg/ Sodium (Chloride) 51 mls @ 50 mls/hr IV DAILY [facility] Last Infusion: 05/22/19 11:00 Dose: Infused Documented by: Magnesium Sulfate (Magnesium Sulfate) 2 gm in 50 mls @ 50 mls/hr IV UD PRN PRN Reason: Magnesium </= 1.6 Iron Carb/Multivit/Maury/Folic Acid (Multivitamin W/Minerals) 1 tab PO DAILY [facility] Last Admin: 05/22/19 09:54 Dose: 1 tab Documented by: Lactulose (Cephulac) 10 gm PO DAILYP PRN PRN Reason: Constipation Last Admin: 05/21/19 15:22 Dose: 10 gm Documented by: Lorazepam (Ativan) 0 mg IV Q4HP PRN; Protocol PRN Reason: Alcohol Withdrawal Metoclopramide HCl (Reglan) 10 mg IV Q6HP PRN PRN Reason: Nausea And Vomiting Last Admin: 05/19/19 07:33 Dose: 10 mg Documented by: Nicotine (Nicoderm) 21 mg TOPICAL DAILY@1000 AGATHA Last Admin: 05/22/19 10:22 Dose: 21 mg Documented by: Nicotine (Nicoderm) 14 mg TOPICAL DAILY@1000 AGATHA Last Admin: 05/22/19 10:22 Dose: 14 mg Documented by: Ondansetron HCl (Zofran) 4 mg IV Q4HP PRN PRN Reason: Nausea And Vomiting Ondansetron HCl (Zofran) 4 mg IV Q4HP PRN PRN Reason: Nausea And Vomiting Polyethylene Glycol (Miralax) 17 gm PO DAILYP PRN PRN Reason: Constipation Senna (Senokot) 2 tab PO HSP PRN PRN Reason: Constipation Sodium Chloride (Saline Flush) 10 ml IV Q8 AGATHA Last Admin: 05/23/19 05:18 Dose: 10 ml Documented by: Medical - PN: A/P - Time Spent With Patient Total time spent is greater than 50% in coordination of care (as documented) at patient's floor/unit and/or counseling patient: 25 - 35 minutes - Narrative A/P Narrative: * Severe alcohol withdrawal-management per protocol and benzodiazepine. * Fall while intoxicated with head injury/concussion/facial bones/orbital floor fracture-ENT Dr. Odom consulted. Recommended conservative management. Gradually healing. Repeat head imaging in light of persistent encephalopathy. 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 Clinically improved. * Persistent encephalopathy likely combination of concussion/alcohol. Check ABG/ammonia/repeat head imaging. Normal electrolytes. * Complicated UTI E. coli-continue Rocephin * Right humerus/lateral supracondylar fracture on splint as per Dr. Ugarte. Recommend follow-up in office * History of tobacco dependence/COPD. Stable * Full code * Prophylaxis SCDs(facial trauma with hemorrhage and maxillary sinus) Plan * WA protocol * Repeat head imaging/ammonia/ABG * PT OT * Nutrition support * Antibiotic coverage * Follow-up orthopedic/ENT as outpatient * Discharge planning Medical - PN: Qual - VTE Deep Vein Thrombosis/Pulmonary Embolism Present on Admission: No
[2019-05-23] MEDS: CHLORHEXIDINE GLUCONATE 1 ML ORAL.SOL SWABMOUTH SCH ×2 (09:52→20:06)
[2019-05-23] MEDS: THIAMINE 100 MG in 0.9 % SODIUM CHLORIDE 50 ML IV SCH (09:52)
[2019-05-23] MEDS: NICOTINE 14 MG PATCH TOPICAL SCH (09:54)
[2019-05-23] MEDS: NICOTINE 21 MG PATCH TOPICAL SCH (09:56)
[2019-05-23] MEDS: cefTRIAXone 1 GM VIAL IV SCH (10:16)
--- NOTE | 2019-05-23 10:58 | Cat Scan Report ---
History: Head injury, encephalopathy, alcohol consumption graft technique: The brain was imaged without contrast at 2.5 mm intervals. Sagittal and coronal reformats are created. The radiation exposure was limited using dose reduction technology. FINDINGS: There is mild generalized cerebral atrophy. Ventricles are prominent but proportionate to the atrophy. Subtle white matter changes are seen in the centrum semiovale within the frontal and parietal lobes bilaterally, consistent with chronic alcohol consumption, ischemia or degeneration. There is no evidence of an infarct. No hemorrhage or mass are present. There is no abnormal extra-axial fluid collection. Bone windows show no skull fracture. Comparison with the prior exam from 05/15/19 shows resolution of the previously seen hematoma around the right eye. IMPRESSION: Stable mild degenerative changes throughout the brain and no acute abnormality Interpreted and Authenticated by: Bret Johnson 05/23/19
[2019-05-24] MEDS: 0.9 % SODIUM CHLORIDE 10 ML SYRINGE IV SCH ×3 (05:36→20:02)
[2019-05-24] MEDS: cefTRIAXone 1 GM VIAL IV SCH (09:00)
[2019-05-24] MEDS: THIAMINE 100 MG in 0.9 % SODIUM CHLORIDE 50 ML IV SCH (09:43)
[2019-05-24] MEDS: CHLORHEXIDINE GLUCONATE 1 ML ORAL.SOL SWABMOUTH SCH ×2 (09:44→20:02)
[2019-05-24] MEDS: NICOTINE 21 MG PATCH TOPICAL SCH (09:46)
[2019-05-24] MEDS: FOLIC ACID 1 MG TABLET PO SCH (09:46)
[2019-05-24] MEDS: NICOTINE 14 MG PATCH TOPICAL SCH (09:46)
[2019-05-24] MEDS: FAMOTIDINE/PF 20 MG/2 ML VIAL IV SCH ×2 (10:31→20:02)
[2019-05-24] MEDS: MULTIVIT,THER IRON,CA,FA & MIN 1 TABLET PO SCH (10:31)
[2019-05-24] MEDS: DOCUSATE SODIUM 50 MG/5 ML ORAL.SOL PO SCH ×2 (10:32→20:03)
--- NOTE | 2019-05-24 11:20 | Internal Med Progress Note ---
Medical - PN: Subj Patient information: Note initiated : 05/24/19 at 11:17 am Service Date, if different from initiated Date: [] Patient: Juan F Roblero 73 y/o M admitted on 05/15/19 for Alcohol/facial abrasion. Chief Complaint: [] Interval history: Mr. Roblero is a 73 year old M Who presents to the ED with police. Patient history of alcohol abuse. And the long time at the [facility] and usually walks his way home intoxicated. Well-known to the place. This time he was so intoxicated he was unable to stand and fell in a parking, some kids brought him over to some bushes there was no observed vomiting he did have some facial abrasions. In the ED he was evaluated and found to have a sodium of 119 and thus admission was requested. Unable to get much history from the patient has he is quite drowsy. He did get some Ativan at 3 AM for elevated CIWA. Unable to gather review of systems because of poor mentation. 05/16 Or conversant this morning. No complaints. Received Ativan last night for elevated CIWA scores. 05/17 Patient sleeping but arousable. Nurse reports this morning patient appeared aspirate on water. Patient n.p.o. until seen by speech today. 05/18 No overnight events. Patient was cooperative with care. CIWA low through night and no ativan given. Seen by speech therapy yesterday but patient uncooperative, recommendations for continued n.p.o. Dobbhoff today for nutrition until able to take orally per speech therapy. 05/19 Patient sleeping and somnolent after pain medication given. Also did get 2 mg of Ativan earlier this morning. No overnight events reported. Per the nurse patient was more clear in his conversation this morning at shift change 05/20 Sitting up in chair. Little more awake and alert and more conversant, but still depressed mentation. No overnight events. Denies any complaints. 05/21 Needs assistance getting up in the chair. Patient not able to walk safely at this point. Has been agitated overnight. More verbal today and wanting to leave. On room air. 05/22 Agitated last night pulling at lines. Haldol given first and requiring benzodiazepine. Patient up most of the night finally after the medications he is now sleeping. 05/23-patient remains minimally arousable. Unable to participate in conversations. CIWA score continues to be around 11. Continue management per protocol. Continuing tube feeds at 55 an hour. Continue attempting PT OT/oral diet to support once patient awake. Repeat head imaging/ammonia/ABG today. On antibiotic coverage for E. coli UTI. 05/24-patient starting to respond to commands. Overnight episode of SVT short- lived responded to coughing maneuver. Improved agitation and low CIWA scores. Ongoing nutrition support. ST eval today. Continue PT OT. Repeat neuroimaging unremarkable. ABG 7.48/40 . On 2 L oxygen. Ammonia 23, electrolytes within normal limits. - Constitutional Vitals: Vital Signs Temp Pulse Resp BP Pulse Ox 98.9 F 103 H 20 164/88 93 05/24/19 08:14 05/24/19 08:14 05/24/19 08:14 05/24/19 08:14 05/24/19 08:14 Period Temp Pulse Resp BP Sys/Hawkins Pulse Ox Last 24 Hr 98.1 F-98.9 F 86-103 16-20 96-164/48-88 93-97 Intake and Output 05/23/19 05/24/19 05/24/19 21:59 05:59 13:59 Intake Total 410 1085 Output Total 2 202 Balance 408 883 Weight 126 lb 1.6 oz Intake & Output: Intake & Output 05/23/19 05/24/19 05/24/19 21:59 05:59 13:59 Intake Total 410 1085 Output Total 2 202 Balance 408 883 Weight 126 lb 1.6 oz Intake: Oral 0 Tube Feeding 180 855 GI Tube Flush 30 230 Other 200 Output: Void Amount 200 # of times incontinent of urine 2 2 Other: Urine Appearance Clear Urine Color Dark Yellow General appearance: no acute distress Exam: Generalized bruising Dobbhoff tube Oral cavity dry Nonlabored breathing No telemetry events Medical - PN: Obj Da - Labs CBC & Chem 7: 05/22/19 04:20 05/23/19 03:38 Labs: Abnormal Lab Results 05/23/19 05/22/19 05/22/19 03:38 04:20 04:20 RBC 3.31 L Hgb 11.1 L Hct 33.2 L MCV 100.3 H MPV 6.9 L Lymph % (Auto) 10.5 L [place] % (Auto) 12.8 H Lymph # (Auto) 0.9 L [place] # (Auto) 1.1 H Chloride 95 L 94 L Carbon Dioxide 31 H Glucose 111 H 134 H Uric Acid 1.9 L Albumin 3.1 L Meds: Medications Acetaminophen (Tylenol) 650 mg PO Q6HP PRN PRN Reason: PAIN/FEVER > 101 Last Admin: 05/22/19 06:39 Dose: 650 mg Documented by: Hydrocodone Bitart/Acetaminophen ([place] 5/325mg) 0 tab PO Q6HP PRN PRN Reason: PAIN LEVEL 3-6 Last Admin: 05/23/19 20:06 Dose: 1 tab Documented by: Albuterol/Ipratropium (Duoneb) 3 ml NEB Q4HP PRN PRN Reason: Shortness Of Breath Last Admin: 05/17/19 09:52 Dose: 3 ml Documented by: Ceftriaxone Sodium (Rocephin) 1 gm IV Q24H [facility] Last Admin: 05/24/19 09:00 Dose: 1 gm Documented by: Chlordiazepoxide HCl (Librium) 25 mg PO Q6HP PRN PRN Reason: Alcohol Withdrawal Last Admin: 05/23/19 01:20 Dose: 25 mg Documented by: Chlorhexidine Gluconate (Peridex) 15 ml SWABMOUTH BID [facility] Last Admin: 05/24/19 09:44 Dose: 15 ml Documented by: Clonidine HCl (Catapres) 0.1 mg PO Q4HP PRN PRN Reason: Alcohol Withdrawal Last Admin: 05/22/19 15:08 Dose: 0.1 mg Documented by: Docusate Sodium (Colace) 100 mg PO BID [facility] Last Admin: 05/24/19 10:32 Dose: Not Given Documented by: Famotidine (Pepcid) 20 mg IV Q12 [facility] Last Admin: 05/24/19 10:31 Dose: 20 mg Documented by: Folic Acid (Folic Acid) 1 mg PO DAILY [facility] Last Admin: 05/24/19 09:46 Dose: 1 mg Documented by: Thiamine HCl 100 mg/ Sodium (Chloride) 51 mls @ 50 mls/hr IV DAILY [facility] Last Admin: 05/24/19 09:43 Dose: 50 mls/hr Documented by: Magnesium Sulfate (Magnesium Sulfate) 2 gm in 50 mls @ 50 mls/hr IV UD PRN PRN Reason: Magnesium </= 1.6 Iron Carb/Multivit/Shoe [place]ementer/Folic Acid (Multivitamin W/Minerals) 1 tab PO DAILY [facility] Last Admin: 05/24/19 10:31 Dose: 1 tab Documented by: Lactulose (Cephulac) 10 gm PO DAILYP PRN PRN Reason: Constipation Last Admin: 05/21/19 15:22 Dose: 10 gm Documented by: Lorazepam (Ativan) 0 mg IV Q4HP PRN; Protocol PRN Reason: Alcohol Withdrawal Metoclopramide HCl (Reglan) 10 mg IV Q6HP PRN PRN Reason: Nausea And Vomiting Last Admin: 05/19/19 07:33 Dose: 10 mg Documented by: Nicotine (Nicoderm) 21 mg TOPICAL DAILY@1000 AGATHA Last Admin: 05/24/19 09:46 Dose: 21 mg Documented by: Nicotine (Nicoderm) 14 mg TOPICAL DAILY@1000 AGATHA Last Admin: 05/24/19 09:46 Dose: 14 mg Documented by: Ondansetron HCl (Zofran) 4 mg IV Q4HP PRN PRN Reason: Nausea And Vomiting Ondansetron HCl (Zofran) 4 mg IV Q4HP PRN PRN Reason: Nausea And Vomiting Polyethylene Glycol (Miralax) 17 gm PO DAILYP PRN PRN Reason: Constipation Senna (Senokot) 2 tab PO HSP PRN PRN Reason: Constipation Sodium Chloride (Saline Flush) 10 ml IV Q8 [facility] Last Admin: 05/24/19 05:36 Dose: 10 ml Documented by: Medical - PN: A/P - Time Spent With Patient Total time spent is greater than 50% in coordination of care (as documented) at patient's floor/unit and/or counseling patient: 25 - 35 minutes - Narrative A/P Narrative: * Severe alcohol withdrawal-clinical improvement noted on management per protocol. Improved CIWA scores. * Fall while intoxicated with head injury/concussion/facial bones/orbital floor fracture-ENT Dr. Odom consulted. Recommended conservative management. Gradually healing. Repeat head imaging no evidence of acute process. 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 Clinically improved. * Persistent encephalopathy likely combination of concussion/alcohol. Clinically improving. Normal work-up including blood gas/neuroimaging/ammonia/ electrolytes. * Complicated E. coli UTI -continue antibiotic for additional 48 hours * Brief episode of SVT-responded to coughing maneuvers * Right humerus/lateral supracondylar fracture on splint as per Dr. Ugarte. Recommend follow-up in office * History of tobacco dependence/COPD. Stable * Full code * Prophylaxis SCDs(facial trauma with hemorrhage and maxillary sinus) Plan * Continue CIWA protocol * PT OT/nutrition support * ST eval today * DC antibiotics in 48 hours * Follow-up orthopedic/ENT as outpatient * Discharge planning per case management Medical - PN: Qual - VTE Deep Vein Thrombosis/Pulmonary Embolism Present on Admission: No
[2019-05-24] MEDS: ACETAMINOPHEN 325 MG TABLET PO PRN (12:51)
[2019-05-24] MEDS: HYDROcodone/APAP 5/325MG TABLET PO PRN (20:02)
[2019-05-24] MEDS ORDERED: hydrALAZINE 20 MG/ML VIAL IV PRN (21:38)
[2019-05-24] MEDS ORDERED: HYDROmorphone 2 MG/ML VIAL IV PRN (21:39)
[2019-05-24] MEDS ORDERED: hydrALAZINE 20 MG/ML VIAL ONE (21:48)
[2019-05-24] MEDS: LORazepam 2 MG/ML VIAL IV PRN (22:46)
[2019-05-25] MEDS: LORazepam 2 MG/ML VIAL IV PRN (00:53)
[2019-05-25 05:34] LABS: Basophils # (Auto) 0.1 K/mcL (0.0-0.3); Basophils % (Auto) 0.7 % (0.0-2.0); Eosinophils # (Auto) 0.2 K/mcL (0.0-0.7); Eosinophils % (Auto) 2.2 % (0.0-7.0); Granulocytes % (Auto) 70.4 % (38.0-78.0); Hematocrit 31.1 % (41.0-55.0); Hemoglobin 10.5 g/dL (13.5-16.5); Lymphocytes # (Auto) 0.9 K/mcL (1.5-4.8); Lymphocytes % (Auto) 11.2 % (15.5-49.0); Mean Cell Volume 98.7 fL (80.0-100.0); Mean Corpuscular HGB Conc 33.6 g/dL (31.0-36.0); Mean Platelet Volume 6.7 fL (7.4-10.4); Monocytes # (Auto) 1.3 K/mcL (0.1-0.9); Monocytes % (Auto) 15.5 % (1.0-12.0); Platelet Count 532 K/mcL (140-440); RBC 3.15 M/mcL (4.50-5.90); Red Cell Distribution Width 14.4 % (11.5-14.5); WBC 8.4 K/mcL (4.5-11.0)
[2019-05-25] MEDS: 0.9 % SODIUM CHLORIDE 10 ML SYRINGE IV SCH ×3 (05:39→22:23)
[2019-05-25 06:16] LABS: ALT/SGPT 21 U/l (0-40); AST/SGOT 29 U/l (0-37); Albumin 3.2 gm/dL (3.2-5.2); Alkaline Phosphatase 71 U/L (39-117); Bilirubin,Direct < 0.2 mg/dL (0.0-0.3); Bilirubin,Total 0.4 mg/dL (0.0-1.0); Blood Urea Nitrogen 14 mg/dl (8-23); Calcium 8.8 mg/dl (8.6-10.4); Carbon Dioxide 28 mmol/L (22-30); Chloride 93 mmol/L (96-108); Globulin 3.3 gm/dL (2.2-3.7); Glomerular Filtration Rate 88; Glucose 78 mg/dL (70-105); Lactate Dehydrogenase 207 U/L (94-250); Phosphorous 3.9 mg/dL (2.7-4.5); Triglycerides 37 mg/dl (<150); Uric Acid 2.6 mg/dL (2.5-8.0)
--- NOTE | 2019-05-25 09:32 | XRay Report ---
HISTORY: Possible aspiration FINDINGS: There is mild flattening of the diaphragms due to air trapping. There is no evidence of aspiration, pneumonia or mass. There are couple small calcified granulomata medially in the right apex. The heart size and pulmonary vasculature are normal. The left lower lobe infiltrate seen on 05/19 and 05/21/2019 has resolved. IMPRESSION: resolved left lower lobe infiltrate and no acute abnormality Interpreted and Authenticated by: Bret Johnson 05/25/19
[2019-05-25] MEDS: MULTIVIT,THER IRON,CA,FA & MIN 1 TABLET PO SCH (10:17)
[2019-05-25] MEDS: THIAMINE 100 MG in 0.9 % SODIUM CHLORIDE 50 ML IV SCH (10:17)
[2019-05-25] MEDS: cefTRIAXone 1 GM VIAL IV SCH (10:17)
[2019-05-25] MEDS: FAMOTIDINE/PF 20 MG/2 ML VIAL IV SCH ×2 (10:17→22:08)
[2019-05-25] MEDS: NICOTINE 21 MG PATCH TOPICAL SCH (10:17)
[2019-05-25] MEDS: FOLIC ACID 1 MG TABLET PO SCH (10:17)
[2019-05-25] MEDS: NICOTINE 14 MG PATCH TOPICAL SCH (10:17)
[2019-05-25] MEDS: CHLORHEXIDINE GLUCONATE 1 ML ORAL.SOL SWABMOUTH SCH ×2 (10:34→22:08)
--- NOTE | 2019-05-25 11:54 | Internal Med Progress Note ---
Medical - PN: Subj Patient information: Note initiated : 05/25/19 at 11:51 am Service Date, if different from initiated Date: [] Patient: Juan F Roblero 73 y/o M admitted on 05/15/19 for Alcohol/facial abrasion. Chief Complaint: [] Interval history: Mr. Roblero is a 73 year old M Who presents to the ED with police. Patient history of alcohol abuse. And the long time at the [facility] and usually walks his way home intoxicated. Well-known to the place. This time he was so intoxicated he was unable to stand and fell in a parking, some kids brought him over to some bushes there was no observed vomiting he did have some facial abrasions. In the ED he was evaluated and found to have a sodium of 119 and thus admission was requested. Unable to get much history from the patient has he is quite drowsy. He did get some Ativan at 3 AM for elevated CIWA. Unable to gather review of systems because of poor mentation. 05/16 Or conversant this morning. No complaints. Received Ativan last night for elevated CIWA scores. 05/17 Patient sleeping but arousable. Nurse reports this morning patient appeared aspirate on water. Patient n.p.o. until seen by speech today. 05/18 No overnight events. Patient was cooperative with care. CIWA low through night and no ativan given. Seen by speech therapy yesterday but patient uncooperative, recommendations for continued n.p.o. Dobbhoff today for nutrition until able to take orally per speech therapy. 05/19 Patient sleeping and somnolent after pain medication given. Also did get 2 mg of Ativan earlier this morning. No overnight events reported. Per the nurse patient was more clear in his conversation this morning at shift change 05/20 Sitting up in chair. Little more awake and alert and more conversant, but still depressed mentation. No overnight events. Denies any complaints. 05/21 Needs assistance getting up in the chair. Patient not able to walk safely at this point. Has been agitated overnight. More verbal today and wanting to leave. On room air. 05/22 Agitated last night pulling at lines. Haldol given first and requiring benzodiazepine. Patient up most of the night finally after the medications he is now sleeping. 05/23-patient remains minimally arousable. Unable to participate in conversations. CIWA score continues to be around 11. Continue management per protocol. Continuing tube feeds at 55 an hour. Continue attempting PT OT/oral diet to support once patient awake. Repeat head imaging/ammonia/ABG today. On antibiotic coverage for E. coli UTI. 05/24-patient starting to respond to commands. Overnight episode of SVT short- lived responded to coughing maneuver. Improved agitation and low CIWA scores. Ongoing nutrition support. ST eval today. Continue PT OT. Repeat neuroimaging unremarkable. ABG 7.48/40 8. On 2 L oxygen. Ammonia 23, electrolytes within normal limits. 05/25-improved withdrawal symptoms. More awake and sitting on chair. Recurrent aspiration episode. ST eval. NG tube accidentally pulled out. Continuing her diet as per ST recommendations. Interval chest imaging shows resolution of left lower lobe infiltrate ongoing PT OT. Systolics improved to hydralazine. On 07 31 dysphagic diet. Receiving beer intermittently. - Constitutional Vitals: Vital Signs Temp Pulse Resp BP Pulse Ox 99.3 F H 101 H 20 142/76 92 05/25/19 07:10 05/25/19 08:03 05/25/19 07:10 05/25/19 07:10 05/25/19 08:03 Period Temp Pulse Resp BP Sys/Hawkins Pulse Ox Last 24 Hr 97.1 F-99.5 F 95-108 16-20 107-191/62-135 90-97 Intake and Output 05/24/19 05/25/19 05/25/19 21:59 05:59 13:59 Output Total 303 3 Balance -303 -3 Weight 124 lb 6 oz Intake & Output: Intake & Output 05/24/19 05/25/19 05/25/19 21:59 05:59 13:59 Output Total 303 3 Balance -303 -3 Weight 124 lb 6 oz Output: Void Amount 300 # of times incontinent of urine 3 3 Other: Urine Appearance Clear Urine Color Dark Yellow Urine Odor Normal General appearance: no acute distress Exam: Minimally oriented and drowsy, nonlabored breathing Minimal anxiety No telemetry events No lymphedema Medical - PN: Obj Da - Labs CBC & Chem 7: 05/25/19 03:38 05/25/19 03:38 Labs: Abnormal Lab Results 05/25/19 05/25/19 05/23/19 03:38 03:38 03:38 RBC 3.15 L Hgb 10.5 L Hct 31.1 L Plt Count 532 H MPV 6.7 L Lymph % (Auto) 11.2 L [place] % (Auto) 15.5 H Lymph # (Auto) 0.9 L [place] # (Auto) 1.3 H Sodium 131 L Chloride 93 L 95 L Carbon Dioxide 31 H Glucose 111 H Uric Acid 1.9 L Albumin 3.1 L Meds: Medications Acetaminophen (Tylenol) 650 mg PO Q6HP PRN PRN Reason: PAIN/FEVER > 101 Last Admin: 05/24/19 12:51 Dose: 650 mg Documented by: Hydrocodone Bitart/Acetaminophen ([place] 5/325mg) 0 tab PO Q6HP PRN PRN Reason: PAIN LEVEL 3-6 Last Admin: 05/23/19 20:06 Dose: 1 tab Documented by: Albuterol/Ipratropium (Duoneb) 3 ml NEB Q4HP PRN PRN Reason: Shortness Of Breath Last Admin: 05/17/19 09:52 Dose: 3 ml Documented by: Ceftriaxone Sodium (Rocephin) 1 gm IV Q24H [facility] Last Admin: 05/25/19 10:17 Dose: 1 gm Documented by: Chlordiazepoxide HCl (Librium) 25 mg PO Q6HP PRN PRN Reason: Alcohol Withdrawal Last Admin: 05/23/19 01:20 Dose: 25 mg Documented by: Chlorhexidine Gluconate (Peridex) 15 ml SWABMOUTH BID [facility] Last Admin: 05/25/19 10:34 Dose: 15 ml Documented by: Clonidine HCl (Catapres) 0.1 mg PO Q4HP PRN PRN Reason: Alcohol Withdrawal Last Admin: 05/22/19 15:08 Dose: 0.1 mg Documented by: Docusate Sodium (Colace) 100 mg PO BID [facility] Famotidine (Pepcid) 20 mg IV Q12 [facility] Last Admin: 05/25/19 10:17 Dose: 20 mg Documented by: Folic Acid (Folic Acid) 1 mg PO DAILY [facility] Last Admin: 05/25/19 10:17 Dose: 1 mg Documented by: Hydralazine HCl (Apresoline) 10 - 20 mg IV Q4-6HP PRN PRN Reason: Hypertension Last Admin: 05/24/19 21:48 Dose: 10 mg Documented by: Hydromorphone HCl (Dilaudid) 0.25 - 0.5 mg IV Q4-6HP PRN PRN Reason: PAIN LEVEL > 6 Last Admin: 05/24/19 21:57 Dose: 0.25 mg Documented by: Thiamine HCl 100 mg/ Sodium (Chloride) 51 mls @ 50 mls/hr IV DAILY [facility] Last Admin: 05/25/19 10:17 Dose: 50 mls/hr Documented by: Magnesium Sulfate (Magnesium Sulfate) 2 gm in 50 mls @ 50 mls/hr IV UD PRN PRN Reason: Magnesium </= 1.6 Iron Carb/Multivit/[place]/Folic Acid (Multivitamin W/Minerals) 1 tab PO DAILY [facility] Last Admin: 05/25/19 10:17 Dose: 1 tab Documented by: Lactulose (Cephulac) 10 gm PO DAILYP PRN PRN Reason: Constipation Last Admin: 05/21/19 15:22 Dose: 10 gm Documented by: Lorazepam (Ativan) 0 mg IV Q4HP PRN; Protocol PRN Reason: Alcohol Withdrawal Last Admin: 05/25/19 00:53 Dose: 1 mg Documented by: Metoclopramide HCl (Reglan) 10 mg IV Q6HP PRN PRN Reason: Nausea And Vomiting Last Admin: 05/19/19 07:33 Dose: 10 mg Documented by: Nicotine (Nicoderm) 21 mg TOPICAL DAILY@1000 [facility] Last Admin: 05/25/19 10:17 Dose: 21 mg Documented by: Nicotine (Nicoderm) 14 mg TOPICAL DAILY@1000 [facility] Last Admin: 05/25/19 10:17 Dose: 14 mg Documented by: Ondansetron HCl (Zofran) 4 mg IV Q4HP PRN PRN Reason: Nausea And Vomiting Ondansetron HCl (Zofran) 4 mg IV Q4HP PRN PRN Reason: Nausea And Vomiting Polyethylene Glycol (Miralax) 17 gm PO DAILYP PRN PRN Reason: Constipation Senna (Senokot) 2 tab PO HSP PRN PRN Reason: Constipation Sodium Chloride (Saline Flush) 10 ml IV Q8 [facility] Last Admin: 05/25/19 05:39 Dose: 10 ml Documented by: Medical - PN: A/P - Time Spent With Patient Total time spent is greater than 50% in coordination of care (as documented) at patient's floor/unit and/or counseling patient: 25 - 35 minutes - Narrative A/P Narrative: * Severe alcohol withdrawal-clinical improvement noted on management per protocol. Improved CIWA scores. Charted on beer as patient has no intentions of quitting alcohol * Fall while intoxicated with head injury/concussion/facial bones/orbital floor fracture-ENT Dr. Odom consulted. Recommended conservative management. Repeat head imaging no evidence of acute process. * Persistent encephalopathy likely combination of concussion/alcohol. Clinically improving. Normal work-up including blood gas/neuroimaging/ammonia/ electrolytes. 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 Clinically improved. * Complicated E. coli UTI -continue antibiotic for additional 24 hours * Brief episode of SVT-responded to coughing maneuvers * Right humerus/lateral supracondylar fracture on splint as per Dr. Ugarte. Recommend follow-up in office * History of tobacco dependence/COPD. Stable * Full code * Prophylaxis SCDs(facial trauma with hemorrhage and maxillary sinus) Plan * PT OT/nutrition support * Continue diet per ST recommendations * DC antibiotics in 24 hours * Follow-up orthopedic/ENT as outpatient * Discharge planning per case management likely SNF Medical - PN: Qual - VTE Deep Vein Thrombosis/Pulmonary Embolism Present on Admission: No
[2019-05-25] MEDS: DOCUSATE SODIUM 50 MG/5 ML ORAL.SOL PO SCH (12:27)
[2019-05-25] MEDS: DOCUSATE SODIUM 100 MG CAPSULE PO SCH (22:07)
[2019-05-25] MEDS: HYDROcodone/APAP 5/325MG TABLET PO PRN (22:07)
[2019-05-26] MEDS: HYDROcodone/APAP 5/325MG TABLET PO PRN (05:38)
[2019-05-26] MEDS: 0.9 % SODIUM CHLORIDE 10 ML SYRINGE IV SCH ×3 (05:42→20:52)
[2019-05-26 08:56] LABS: Basophils # (Auto) 0 K/mcL (0.0-0.3); Basophils % (Auto) 0.5 % (0.0-2.0); Eosinophils # (Auto) 0.2 K/mcL (0.0-0.7); Eosinophils % (Auto) 2.4 % (0.0-7.0); Granulocytes % (Auto) 75.2 % (38.0-78.0); Hematocrit 32.5 % (41.0-55.0); Hemoglobin 10.9 g/dL (13.5-16.5); Lymphocytes # (Auto) 0.7 K/mcL (1.5-4.8); Lymphocytes % (Auto) 8.9 % (15.5-49.0); Mean Cell Volume 98.4 fL (80.0-100.0); Mean Corpuscular HGB Conc 33.7 g/dL (31.0-36.0); Mean Platelet Volume 6.6 fL (7.4-10.4); Monocytes # (Auto) 1.1 K/mcL (0.1-0.9); Platelet Count 577 K/mcL (140-440); Red Cell Distribution Width 14.5 % (11.5-14.5); WBC 8.1 K/mcL (4.5-11.0)
[2019-05-26] MEDS: FOLIC ACID 1 MG TABLET PO SCH (09:09)
[2019-05-26] MEDS: MULTIVIT,THER IRON,CA,FA & MIN 1 TABLET PO SCH (09:09)
[2019-05-26] MEDS: DOCUSATE SODIUM 100 MG CAPSULE PO SCH ×2 (09:09→20:52)
[2019-05-26] MEDS: FAMOTIDINE/PF 20 MG/2 ML VIAL IV SCH (09:10)
[2019-05-26] MEDS: THIAMINE 100 MG in 0.9 % SODIUM CHLORIDE 50 ML IV SCH (09:10)
[2019-05-26] MEDS: CHLORHEXIDINE GLUCONATE 1 ML ORAL.SOL SWABMOUTH SCH ×2 (09:13→20:52)
[2019-05-26] MEDS: NICOTINE 21 MG PATCH TOPICAL SCH ×2 (09:14→10:13)
[2019-05-26] MEDS: NICOTINE 14 MG PATCH TOPICAL SCH ×2 (09:14→10:13)
[2019-05-26] MEDS: cefTRIAXone 1 GM VIAL IV SCH (09:17)
[2019-05-26 09:20] LABS: ALT/SGPT 22 U/l (0-40); AST/SGOT 28 U/l (0-37); Albumin 3.3 gm/dL (3.2-5.2); Albumin/Globulin Ratio 0.9 (1.0-2.3); Alkaline Phosphatase 76 U/L (39-117); Bilirubin,Direct < 0.2 mg/dL (0.0-0.3); Bilirubin,Total 0.4 mg/dL (0.0-1.0); Blood Urea Nitrogen 18 mg/dl (8-23); Calcium 9.1 mg/dl (8.6-10.4); Carbon Dioxide 26 mmol/L (22-30); Chloride 97 mmol/L (96-108); Globulin 3.7 gm/dL (2.2-3.7); Glomerular Filtration Rate 88; Glucose 90 mg/dL (70-105); Lactate Dehydrogenase 220 U/L (94-250); Phosphorous 4.3 mg/dL (2.7-4.5); Triglycerides 42 mg/dl (<150); Uric Acid 3.8 mg/dL (2.5-8.0)
[2019-05-26] MEDS ORDERED: IPRATROPIUM/ALBUTEROL 3 ML AMPUL.NEB NEB PRN (09:53)
[2019-05-26] MEDS ORDERED: MAGNESIUM SULFATE 2 GM/50 ML BAG IV PRN (09:53)
[2019-05-26] MEDS ORDERED: HYDROmorphone 2 MG/ML VIAL IV PRN (09:53)
[2019-05-26] MEDS ORDERED: ONDANSETRON 4 MG/2 ML VIAL IV PRN ×2 (09:53)
[2019-05-26] MEDS ORDERED: LORazepam 2 MG/ML VIAL IV PRN (09:53)
[2019-05-26] MEDS ORDERED: METOCLOPRAMIDE 10 MG/2 ML VIAL IV PRN (09:53)
[2019-05-26] MEDS ORDERED: LACTULOSE 20 GM/30 ML ORAL.SOL PO PRN (09:53)
[2019-05-26] MEDS ORDERED: hydrALAZINE 20 MG/ML VIAL IV PRN (09:53)
[2019-05-26] MEDS ORDERED: POLYETHYLENE GLYCOL 3350 17 GM PACKET PO PRN (09:53)
--- NOTE | 2019-05-26 10:02 | Internal Med Progress Note ---
Medical - PN: Subj Patient information: Note initiated : 05/26/19 at 9:59 am Service Date, if different from initiated Date: [] Patient: Juan F Roblero 73 y/o M admitted on 05/15/19 for Alcohol/facial abrasion. Chief Complaint: [] Interval history: Mr. Roblero is a 73 year old M Who presents to the ED with police. Patient history of alcohol abuse. And the long time at the [facility] and usually walks his way home intoxicated. Well-known to the place. This time he was so intoxicated he was unable to stand and fell in a parking, some kids brought him over to some bushes there was no observed vomiting he did have some facial abrasions. In the ED he was evaluated and found to have a sodium of 119 and thus admission was requested. Unable to get much history from the patient has he is quite drowsy. He did get some Ativan at 3 AM for elevated CIWA. Unable to gather review of systems because of poor mentation. 05/16 Or conversant this morning. No complaints. Received Ativan last night for elevated CIWA scores. 05/17 Patient sleeping but arousable. Nurse reports this morning patient appeared aspirate on water. Patient n.p.o. until seen by speech today. 05/18 No overnight events. Patient was cooperative with care. CIWA low through night and no ativan given. Seen by speech therapy yesterday but patient uncooperative, recommendations for continued n.p.o. Dobbhoff today for nutrition until able to take orally per speech therapy. 05/19 Patient sleeping and somnolent after pain medication given. Also did get 2 mg of Ativan earlier this morning. No overnight events reported. Per the nurse patient was more clear in his conversation this morning at shift change 05/20 Sitting up in chair. Little more awake and alert and more conversant, but still depressed mentation. No overnight events. Denies any complaints. 05/21 Needs assistance getting up in the chair. Patient not able to walk safely at this point. Has been agitated overnight. More verbal today and wanting to leave. On room air. 05/22 Agitated last night pulling at lines. Haldol given first and requiring benzodiazepine. Patient up most of the night finally after the medications he is now sleeping. 05/23-patient remains minimally arousable. Unable to participate in conversations. CIWA score continues to be around 11. Continue management per protocol. Continuing tube feeds at 55 an hour. Continue attempting PT OT/oral diet to support once patient awake. Repeat head imaging/ammonia/ABG today. On antibiotic coverage for E. coli UTI. 05/24-patient starting to respond to commands. Overnight episode of SVT short- lived responded to coughing maneuver. Improved agitation and low CIWA scores. Ongoing nutrition support. ST eval today. Continue PT OT. Repeat neuroimaging unremarkable. ABG 7.48/40 . On 2 L oxygen. Ammonia 23, electrolytes within normal limits. 05/25-improved withdrawal symptoms. More awake and sitting on chair. Recurrent aspiration episode. ST eval. NG tube accidentally pulled out. Continuing her diet as per ST recommendations. Interval chest imaging shows resolution of left lower lobe infiltrate ongoing PT OT. Systolics improved to hydralazine. On 07 31 dysphagic diet. Receiving beer intermittently. 05/26-patient much improved, lucid and responding to commands since previous day. Tolerating diet as per ST recommendations. No overnight fever chills. No significant alcohol withdrawal symptoms. Transfer to medical floor today. Continue PT OT she will nutrition support. Case management to coordinate discharge possibly in the next 72 hours - Constitutional Vitals: Vital Signs Temp Pulse Resp BP Pulse Ox 98.9 F 90 16 136/68 92 05/26/19 08:48 05/26/19 09:18 05/26/19 04:00 05/26/19 08:48 05/26/19 09:18 Period Temp Pulse Resp BP Sys/Hawkins Pulse Ox Last 24 Hr 98.3 F-99.2 F 82-94 16-20 136-167/68-95 91-95 Intake and Output 05/25/19 05/26/19 05/26/19 21:59 05:59 13:59 Intake Total 40 50 Output Total 1 Balance 39 50 Weight 124 lb 3.2 oz Intake & Output: Intake & Output 05/25/19 05/26/19 05/26/19 21:59 05:59 13:59 Intake Total 40 50 Output Total 1 Balance 39 50 Weight 124 lb 3.2 oz Intake: Oral 40 50 Output: # of times incontinent of urine 1 Other: # of times incontinent of 1 Bowels General appearance: no acute distress Exam: More lucid and responding to commands Nonlabored breathing No anxiety or agitation No lymphedema Medical - PN: Obj Da - Labs CBC & Chem 7: 05/26/19 08:19 05/26/19 08:19 Labs: Abnormal Lab Results 05/26/19 05/26/19 05/25/19 08:19 08:19 03:38 RBC 3.30 L Hgb 10.9 L Hct 32.5 L Plt Count 577 H MPV 6.6 L Lymph % (Auto) 8.9 L [place] % (Auto) 13.0 H Lymph # (Auto) 0.7 L [place] # (Auto) 1.1 H Sodium 131 L Chloride 93 L Albumin/Globulin Ratio 0.9 L 05/25/19 03:38 RBC 3.15 L Hgb 10.5 L Hct 31.1 L Plt Count 532 H MPV 6.7 L Lymph % (Auto) 11.2 L [place] % (Auto) 15.5 H Lymph # (Auto) 0.9 L [place] # (Auto) 1.3 H Sodium Chloride Albumin/Globulin Ratio Meds: Medications Acetaminophen (Tylenol) 650 mg PO Q6HP PRN PRN Reason: PAIN/FEVER > 101 Hydrocodone Bitart/Acetaminophen ([place] 5/325mg) 0 tab PO Q6HP PRN PRN Reason: PAIN LEVEL 3-6 Albuterol/Ipratropium (Duoneb) 3 ml NEB Q4HP PRN PRN Reason: Shortness Of Breath Chlordiazepoxide HCl (Librium) 25 mg PO Q6HP PRN PRN Reason: Alcohol Withdrawal Chlorhexidine Gluconate (Peridex) 15 ml SWABMOUTH BID [facility] Clonidine HCl (Catapres) 0.1 mg PO Q4HP PRN PRN Reason: Alcohol Withdrawal Docusate Sodium (Colace) 100 mg PO BID [facility] Folic Acid (Folic Acid) 1 mg PO DAILY [facility] Hydralazine HCl (Apresoline) 10 - 20 mg IV Q4-6HP PRN PRN Reason: Hypertension Hydromorphone HCl (Dilaudid) 0.25 - 0.5 mg IV Q4-6HP PRN PRN Reason: PAIN LEVEL > 6 Magnesium Sulfate (Magnesium Sulfate) 2 gm in 50 mls @ 50 mls/hr IV UD PRN PRN Reason: Magnesium </= 1.6 Iron Carb/Multivit/[place]/Folic Acid (Multivitamin W/Minerals) 1 tab PO DAILY [facility] Lactulose (Cephulac) 10 gm PO DAILYP PRN PRN Reason: Constipation Lorazepam (Ativan) 0 mg IV Q4HP PRN; Protocol PRN Reason: Alcohol Withdrawal Metoclopramide HCl (Reglan) 10 mg IV Q6HP PRN PRN Reason: Nausea And Vomiting Nicotine (Nicoderm) 21 mg TOPICAL DAILY@1000 [facility] Nicotine (Nicoderm) 14 mg TOPICAL DAILY@1000 [facility] Ondansetron HCl (Zofran) 4 mg IV Q4HP PRN PRN Reason: Nausea And Vomiting Polyethylene Glycol (Miralax) 17 gm PO DAILYP PRN PRN Reason: Constipation Senna (Senokot) 2 tab PO HSP PRN PRN Reason: Constipation Sodium Chloride (Saline Flush) 10 ml IV Q8 [facility] Thiamine HCl (Vitamin B1) 100 mg PO DAILY [facility] Medical - PN: A/P - Time Spent With Patient Total time spent is greater than 50% in coordination of care (as documented) at patient's floor/unit and/or counseling patient: 25 - 35 minutes - Narrative A/P Narrative: * Severe deconditioning-continue PT OT/nutrition support/case management to coordinate SNF transfer * Severe alcohol withdrawal-clinically resolved * Fall while intoxicated with head injury/concussion/facial bones/orbital floor fracture-ENT Dr. Odom consulted. Recommended conservative management. Repeat head imaging no evidence of acute process. * Right humerus/lateral supracondylar fracture on splint as per Dr. Ugarte. Recommend follow-up in office * Acute encephalopathy combination of concussion/alcohol. Clinically improved. 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 Clinically improved. * Complicated E. coli UTI -status post 7-day Rocephin * Brief episode of SVT-responded to coughing maneuvers * History of tobacco dependence/COPD. Stable * Full code * Prophylaxis SCDs(facial trauma with hemorrhage and maxillary sinus) Plan * DC telemetry and transfer to medical floor * PT OT/nutrition support * Continue diet per ST recommendations * DC antibiotics * Follow-up orthopedic/ENT as outpatient * Discharge planning per case management likely SNF in the next 48 to 72 hours Medical - PN: Qual - VTE Deep Vein Thrombosis/Pulmonary Embolism Present on Admission: No
[2019-05-26] MEDS ORDERED: MEGESTROL ACETATE 40 MG TABLET PO SCH (17:56)
[2019-05-26] MEDS ORDERED: SENNOSIDES 1 TABLET PO PRN (21:00)
[2019-05-26] MEDS: MEGESTROL ACETATE 400 MG/10 ML ORAL.SUSP PO SCH (22:42)
[2019-05-27] MEDS: 0.9 % SODIUM CHLORIDE 10 ML SYRINGE IV SCH ×3 (05:15→21:54)
[2019-05-27] MEDS ORDERED: THIAMINE 100 MG TABLET PO SCH (09:00)
[2019-05-27] MEDS: THIAMINE 100 MG TABLET PO SCH (09:23)
[2019-05-27] MEDS: MULTIVIT,THER IRON,CA,FA & MIN 1 TABLET PO SCH (09:23)
[2019-05-27] MEDS: CHLORHEXIDINE GLUCONATE 1 ML ORAL.SOL SWABMOUTH SCH ×2 (09:24→21:53)
[2019-05-27] MEDS: FOLIC ACID 1 MG TABLET PO SCH (09:24)
[2019-05-27] MEDS: MEGESTROL ACETATE 400 MG/10 ML ORAL.SUSP PO SCH (09:24)
[2019-05-27] MEDS: DOCUSATE SODIUM 100 MG CAPSULE PO SCH ×2 (09:24→21:52)
[2019-05-27] MEDS: NICOTINE 14 MG PATCH TOPICAL SCH (10:04)
[2019-05-27] MEDS: NICOTINE 21 MG PATCH TOPICAL SCH (10:04)
--- NOTE | 2019-05-27 11:20 | Internal Med Progress Note ---
Medical - PN: Subj Patient information: Note initiated : 05/27/19 at 11:11 am Service Date, if different from initiated Date: [] Patient: Juan F Roblero 73 y/o M admitted on 05/15/19 for Alcohol/facial abrasion. Chief Complaint: [] Interval history: Mr. Roblero is a 73 year old M Who presents to the ED with police. Patient history of alcohol abuse. And the long time at the [facility] and usually walks his way home intoxicated. Well-known to the place. This time he was so intoxicated he was unable to stand and fell in a parking, some kids brought him over to some bushes there was no observed vomiting he did have some facial abrasions. In the ED he was evaluated and found to have a sodium of 119 and thus admission was requested. Unable to get much history from the patient has he is quite drowsy. He did get some Ativan at 3 AM for elevated CIWA. Unable to gather review of systems because of poor mentation. 05/16 Or conversant this morning. No complaints. Received Ativan last night for elevated CIWA scores. 05/17 Patient sleeping but arousable. Nurse reports this morning patient appeared aspirate on water. Patient n.p.o. until seen by speech today. 05/18 No overnight events. Patient was cooperative with care. CIWA low through night and no ativan given. Seen by speech therapy yesterday but patient uncooperative, recommendations for continued n.p.o. Dobbhoff today for nutrition until able to take orally per speech therapy. 05/19 Patient sleeping and somnolent after pain medication given. Also did get 2 mg of Ativan earlier this morning. No overnight events reported. Per the nurse patient was more clear in his conversation this morning at shift change 05/20 Sitting up in chair. Little more awake and alert and more conversant, but still depressed mentation. No overnight events. Denies any complaints. 05/21 Needs assistance getting up in the chair. Patient not able to walk safely at this point. Has been agitated overnight. More verbal today and wanting to leave. On room air. 05/22 Agitated last night pulling at lines. Haldol given first and requiring benzodiazepine. Patient up most of the night finally after the medications he is now sleeping. 05/23-patient remains minimally arousable. Unable to participate in conversations. CIWA score continues to be around 11. Continue management per protocol. Continuing tube feeds at 55 an hour. Continue attempting PT OT/oral diet to support once patient awake. Repeat head imaging/ammonia/ABG today. On antibiotic coverage for E. coli UTI. 05/24-patient starting to respond to commands. Overnight episode of SVT short- lived responded to coughing maneuver. Improved agitation and low CIWA scores. Ongoing nutrition support. ST eval today. Continue PT OT. Repeat neuroimaging unremarkable. ABG 7.48/40 . On 2 L oxygen. Ammonia 23, electrolytes within normal limits. 05/25-improved withdrawal symptoms. More awake and sitting on chair. Recurrent aspiration episode. ST eval. NG tube accidentally pulled out. Continuing her diet as per ST recommendations. Interval chest imaging shows resolution of left lower lobe infiltrate ongoing PT OT. Systolics improved to hydralazine. On 07 31 dysphagic diet. Receiving beer intermittently. 05/26-patient much improved, lucid and responding to commands since previous day. Tolerating diet as per ST recommendations. No overnight fever chills. No significant alcohol withdrawal symptoms. Transfer to medical floor today. Continue PT OT she will nutrition support. Case management to coordinate discharge possibly in the next 72 hours 05/27-Patient doing much better since previous day. Able to ambulate with therapy and assistance. On thin liquid diet. Minimal withdrawal symptoms. Started on appetite stimulants. No fever chills nausea vomiting. Anticipate discharge on Wednesday to SNF continue to clinical improvement. - Constitutional Vitals: Vital Signs Temp Pulse Resp BP Pulse Ox 98.5 F 86 22 144/77 91 05/27/19 07:13 05/27/19 07:13 05/27/19 07:13 05/27/19 07:13 05/27/19 07:13 Period Temp Pulse Resp BP Sys/Hawkins Pulse Ox Last 24 Hr 98.2 F-98.8 F 86-99 16-22 117-144/65-77 90-95 Intake and Output 05/26/19 05/27/19 05/27/19 21:59 05:59 13:59 Intake Total 100 50 Output Total 3 2 1 Balance 97 48 -1 Weight 125 lb 3.2 oz Intake & Output: Intake & Output 05/26/19 05/27/19 05/27/19 21:59 05:59 13:59 Intake Total 100 50 Output Total 3 2 1 Balance 97 48 -1 Weight 125 lb 3.2 oz Intake: Oral 100 50 Output: # of times incontinent of urine 3 2 1 Other: Meal Dinner Percent of Meal Consumed 50% Feeding Ability Assist with Tray Set Up Urine Appearance Clear Urine Color Dark Yellow Urine Odor Normal General appearance: no acute distress Exam: Alert oriented nonlabored breathing Minimal tremors No anxiety Distended abdomen Medical - PN: Obj Da - Labs CBC & Chem 7: 05/26/19 08:19 05/26/19 08:19 Labs: Abnormal Lab Results 05/26/19 05/26/19 05/25/19 08:19 08:19 03:38 RBC 3.30 L Hgb 10.9 L Hct 32.5 L Plt Count 577 H MPV 6.6 L Lymph % (Auto) 8.9 L [place] % (Auto) 13.0 H Lymph # (Auto) 0.7 L [place] # (Auto) 1.1 H Sodium 131 L Chloride 93 L Albumin/Globulin Ratio 0.9 L 05/25/19 03:38 RBC 3.15 L Hgb 10.5 L Hct 31.1 L Plt Count 532 H MPV 6.7 L Lymph % (Auto) 11.2 L [place] % (Auto) 15.5 H Lymph # (Auto) 0.9 L [place] # (Auto) 1.3 H Sodium Chloride Albumin/Globulin Ratio Meds: Medications Acetaminophen (Tylenol) 650 mg PO Q6HP PRN PRN Reason: PAIN/FEVER > 101 Hydrocodone Bitart/Acetaminophen ([place] 5/325mg) 0 tab PO Q6HP PRN PRN Reason: PAIN LEVEL 3-6 Albuterol/Ipratropium (Duoneb) 3 ml NEB Q4HP PRN PRN Reason: Shortness Of Breath Chlordiazepoxide HCl (Librium) 25 mg PO Q6HP PRN PRN Reason: Alcohol Withdrawal Chlorhexidine Gluconate (Peridex) 15 ml SWABMOUTH BID [facility] Last Admin: 05/27/19 09:24 Dose: 15 ml Documented by: Clonidine HCl (Catapres) 0.1 mg PO Q4HP PRN PRN Reason: Alcohol Withdrawal Docusate Sodium (Colace) 100 mg PO BID [facility] Last Admin: 08/31/19 09:24 Dose: 100 mg Documented by: Folic Acid (Folic Acid) 1 mg PO DAILY [facility] Last Admin: 05/27/19 09:24 Dose: 1 mg Documented by: Hydralazine HCl (Apresoline) 10 - 20 mg IV Q4-6HP PRN PRN Reason: Hypertension Hydromorphone HCl (Dilaudid) 0.25 - 0.5 mg IV Q4-6HP PRN PRN Reason: PAIN LEVEL > 6 Magnesium Sulfate (Magnesium Sulfate) 2 gm in 50 mls @ 50 mls/hr IV UD PRN PRN Reason: Magnesium </= 1.6 Iron Carb/Multivit/[place]/Folic Acid (Multivitamin W/Minerals) 1 tab PO DAILY [facility] Last Admin: 05/27/19 09:23 Dose: 1 tab Documented by: Lactulose (Cephulac) 10 gm PO DAILYP PRN PRN Reason: Constipation Megestrol Acetate (Megace) 100 mg PO DAILY [facility] Last Admin: 05/27/19 09:24 Dose: 100 mg Documented by: Metoclopramide HCl (Reglan) 10 mg IV Q6HP PRN PRN Reason: Nausea And Vomiting Nicotine (Nicoderm) 21 mg TOPICAL DAILY@1000 [facility] Last Admin: 05/27/19 10:04 Dose: 21 mg Documented by: Nicotine (Nicoderm) 14 mg TOPICAL DAILY@1000 [facility] Last Admin: 05/27/19 10:04 Dose: 14 mg Documented by: Ondansetron HCl (Zofran) 4 mg IV Q4HP PRN PRN Reason: Nausea And Vomiting Polyethylene Glycol (Miralax) 17 gm PO DAILYP PRN PRN Reason: Constipation Senna (Senokot) 2 tab PO HSP PRN PRN Reason: Constipation Sodium Chloride (Saline Flush) 10 ml IV Q8 [facility] Last Admin: 05/27/19 05:15 Dose: 10 ml Documented by: Thiamine HCl (Vitamin B1) 100 mg PO DAILY [facility] Last Admin: 05/27/19 09:23 Dose: 100 mg Documented by: Medical - PN: A/P - Time Spent With Patient Total time spent is greater than 50% in coordination of care (as documented) at patient's floor/unit and/or counseling patient: 25 - 35 minutes - Narrative A/P Narrative: * Severe deconditioning-clinical improvement noted with ongoing PT OT/nutrition support. Anticipate SNF transfer Wednesday. Case management coordinating * Severe alcohol withdrawal-clinically resolved * Fall while intoxicated with head injury/concussion/facial bones/orbital floor fracture-ENT Dr. Odom consulted. Recommended conservative management. Repeat head imaging no evidence of acute process. * Right humerus/lateral supracondylar fracture on splint as per Dr. Ugarte. R ecommend follow-up in office * Acute encephalopathy combination of concussion/alcohol. Clinically improved. 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 Clinically improved. * Complicated E. coli UTI -status post 7-day Rocephin * Brief episode of SVT-responded to coughing maneuvers * History of tobacco dependence/COPD. Stable * Full code * Prophylaxis SCDs(facial trauma with hemorrhage and maxillary sinus) Plan * Continue aggressive rehab. Anticipate SNF transfer Wednesday * Continue diet per ST recommendations * Scheduled follow-up follow-up orthopedic/ENT as outpatient Medical - PN: Qual - VTE Deep Vein Thrombosis/Pulmonary Embolism Present on Admission: No
[2019-05-27] MEDS: HYDROcodone/APAP 5/325MG TABLET PO PRN ×2 (12:14→17:58)
[2019-05-27] MEDS ORDERED: MEGESTROL ACETATE 400 MG/10 ML ORAL.SUSP PO SCH (20:30)
[2019-05-27] MEDS: chlordiazePOXIDE 25 MG CAPSULE PO PRN (20:46)
[2019-05-28] MEDS: 0.9 % SODIUM CHLORIDE 10 ML SYRINGE IV SCH ×4 (03:37→23:24)
[2019-05-28] MEDS: ACETAMINOPHEN 325 MG TABLET PO PRN ×2 (03:37→20:20)
[2019-05-28] MEDS: DOCUSATE SODIUM 100 MG CAPSULE PO SCH ×2 (09:53→20:20)
[2019-05-28] MEDS: FOLIC ACID 1 MG TABLET PO SCH (09:53)
[2019-05-28] MEDS: MULTIVIT,THER IRON,CA,FA & MIN 1 TABLET PO SCH (09:53)
[2019-05-28] MEDS: NICOTINE 21 MG PATCH TOPICAL SCH (09:53)
[2019-05-28] MEDS: MEGESTROL ACETATE 400 MG/10 ML ORAL.SUSP PO SCH (09:53)
[2019-05-28] MEDS: THIAMINE 100 MG TABLET PO SCH (09:53)
[2019-05-28] MEDS: NICOTINE 14 MG PATCH TOPICAL SCH (09:53)
[2019-05-28] MEDS: CHLORHEXIDINE GLUCONATE 1 ML ORAL.SOL SWABMOUTH SCH ×2 (09:54→23:25)
[2019-05-28] MEDS: cloNIDine HCL 0.1 MG TABLET PO PRN (20:20)
[2019-05-28] MEDS: chlordiazePOXIDE 25 MG CAPSULE PO PRN (20:20)
--- NOTE | 2019-05-28 20:40 | Internal Med Progress Note ---
Medical - PN: Subj Patient information: Note initiated : 05/28/19 at 8:38 pm Service Date, if different from initiated Date: [] Patient: Juan F Roblero 73 y/o M admitted on 05/15/19 for Alcohol/facial abrasion. Chief Complaint: Follow-up alcohol intoxication, falls, fractures. Interval history: Mr. Roblero is a 73 year old M Who presents to the ED with police. Patient history of alcohol abuse. And the long time at the [facility] and usually walks his way home intoxicated. Well-known to the place. This time he was so intoxicated he was unable to stand and fell in a parking, some kids brought him over to some bushes there was no observed vomiting he did have some facial abrasions. In the ED he was evaluated and found to have a sodium of 119 and thus admission was requested. Unable to get much history from the patient has he is quite drowsy. He did get some Ativan at 3 AM for elevated CIWA. Unable to gather review of systems because of poor mentation. 05/16 Or conversant this morning. No complaints. Received Ativan last night for elevated CIWA scores. 05/17 Patient sleeping but arousable. Nurse reports this morning patient appeared aspirate on water. Patient n.p.o. until seen by speech today. 05/18 No overnight events. Patient was cooperative with care. CIWA low through night and no ativan given. Seen by speech therapy yesterday but patient uncooperative, recommendations for continued n.p.o. Dobbhoff today for nutrition until able to take orally per speech therapy. 05/19 Patient sleeping and somnolent after pain medication given. Also did get 2 mg of Ativan earlier this morning. No overnight events reported. Per the nurse patient was more clear in his conversation this morning at shift change 05/20 Sitting up in chair. Little more awake and alert and more conversant, but still depressed mentation. No overnight events. Denies any complaints. 05/21 Needs assistance getting up in the chair. Patient not able to walk safely at this point. Has been agitated overnight. More verbal today and wanting to leave. On room air. 05/22 Agitated last night pulling at lines. Haldol given first and requiring benzodiazepine. Patient up most of the night finally after the medications he is now sleeping. 05/23-patient remains minimally arousable. Unable to participate in con versations. CIWA score continues to be around 11. Continue management per protocol. Continuing tube feeds at 55 an hour. Continue attempting PT OT/oral diet to support once patient awake. Repeat head imaging/ammonia/ABG today. On antibiotic coverage for E. coli UTI. 05/24-patient starting to respond to commands. Overnight episode of SVT short- lived responded to coughing maneuver. Improved agitation and low CIWA scores. Ongoing nutrition support. ST eval today. Continue PT OT. Repeat neuroimaging unremarkable. ABG 7.48/40 . On 2 L oxygen. Ammonia 23, electrolytes within normal limits. 05/25-improved withdrawal symptoms. More awake and sitting on chair. Recurrent aspiration episode. ST eval. NG tube accidentally pulled out. Continuing her diet as per ST recommendations. Interval chest imaging shows resolution of left lower lobe infiltrate ongoing PT OT. Systolics improved to hydralazine. On 07 31 dysphagic diet. Receiving beer intermittently. 05/26-patient much improved, lucid and responding to commands since previous day. Tolerating diet as per ST recommendations. No overnight fever chills. No significant alcohol withdrawal symptoms. Transfer to medical floor today. Continue PT OT she will nutrition support. Case management to coordinate discharge possibly in the next 72 hours 05/27-Patient doing much better since previous day. Able to ambulate with therapy and assistance. On thin liquid diet. Minimal withdrawal symptoms. Started on appetite stimulants. No fever chills nausea vomiting. Anticipate discharge on Wednesday to SNF continue to clinical improvement. 05/28-continues to slowly improve. Getting occasional Librium for withdrawal sy mptoms. Appetite may be a little improved. Nutrition continues to follow. - Constitutional Vitals: Vital Signs Temp Pulse Resp BP Pulse Ox 97.5 F 100 H 32 H 121/65 97 05/28/19 19:24 05/28/19 19:24 05/28/19 19:24 05/28/19 19:24 05/28/19 19:24 Period Temp Pulse Resp BP Sys/Hawkins Pulse Ox Last 24 Hr 97.4 F-98.8 F 84-102 16-32 121-152/65-76 91-97 Intake and Output 05/28/19 05/28/19 05/28/19 05:59 13:59 21:59 Intake Total 240 320 120 Output Total 1 1 Balance 239 320 119 Weight 120 lb 8 oz Patient Weight 05/29/19 05:59 Weight 120 lb 8 oz Intake & Output: Intake & Output 05/28/19 05/28/19 05/28/19 05:59 13:59 21:59 Intake Total 240 320 120 Output Total 1 1 Balance 239 320 119 Weight 120 lb 8 oz Intake: Nourishment/Supplement quantity 120 (ml) Oral 240 200 120 Output: # of times incontinent of urine 1 1 Other: Meal Breakfast Dinner Percent of Meal Consumed 100% Refused 75% Feeding Ability Assist with Tray Set Up Assist with Tray Set Up Nourishment/Supplement name Applesauce ensure Urine Color Bright Yellow Bright Yellow Urine Odor Strong Stool Size Small Small Stool Color Brown Brown Stool Consistency Normal for Patient Soft # Voids 1 1 3 # Bowel Movements 2 Exam: General: Thin, cachectic man in bed no acute distress Chest: Clear to auscultation Cardiovascular: Regular Abdomen: Soft, nontender Extremities: Right upper extremity in a splint. Neurovascularly intact. Neuro: Alert, oriented to person, place, situation. No tremor. Medical - PN: Obj Da - Labs CBC & Chem 7: 05/26/19 08:19 05/26/19 08:19 Labs: Abnormal Lab Results 05/26/19 05/26/19 08:19 08:19 RBC 3.30 L Hgb 10.9 L Hct 32.5 L Plt Count 577 H MPV 6.6 L Lymph % (Auto) 8.9 L [place] % (Auto) 13.0 H Lymph # (Auto) 0.7 L [place] # (Auto) 1.1 H Albumin/Globulin Ratio 0.9 L Meds: Medications Acetaminophen (Tylenol) 650 mg PO Q6HP PRN PRN Reason: PAIN/FEVER > 101 Last Admin: 05/28/19 20:20 Dose: 650 mg Documented by: Hydrocodone Bitart/Acetaminophen ([place] 5/325mg) 0 tab PO Q6HP PRN PRN Reason: PAIN LEVEL 3-6 Last Admin: 05/27/19 17:58 Dose: 1 tab Documented by: Albuterol/Ipratropium (Duoneb) 3 ml NEB Q4HP PRN PRN Reason: Shortness Of Breath Chlordiazepoxide HCl (Librium) 25 mg PO Q6HP PRN PRN Reason: Alcohol Withdrawal Last Admin: 05/28/19 20:20 Dose: 25 mg Documented by: Chlorhexidine Gluconate (Peridex) 15 ml SWABMOUTH BID [facility] Last Admin: 05/28/19 09:54 Dose: 15 ml Documented by: Clonidine HCl (Catapres) 0.1 mg PO Q4HP PRN PRN Reason: Alcohol Withdrawal Last Admin: 05/28/19 20:20 Dose: 0.1 mg Documented by: Docusate Sodium (Colace) 100 mg PO BID [facility] Last Admin: 05/28/19 20:20 Dose: 100 mg Documented by: Folic Acid (Folic Acid) 1 mg PO DAILY [facility] Last Admin: 05/28/19 09:53 Dose: 1 mg Documented by: Hydralazine HCl (Apresoline) 10 - 20 mg IV Q4-6HP PRN PRN Reason: Hypertension Hydromorphone HCl (Dilaudid) 0.25 - 0.5 mg IV Q4-6HP PRN PRN Reason: PAIN LEVEL > 6 Magnesium Sulfate (Magnesium Sulfate) 2 gm in 50 mls @ 50 mls/hr IV UD PRN PRN Reason: Magnesium </= 1.6 Iron Carb/Multivit/[place]/Folic Acid (Multivitamin W/Minerals) 1 tab PO DAILY [facility] Last Admin: 05/28/19 09:53 Dose: 1 tab Documented by: Lactulose (Cephulac) 10 gm PO DAILYP PRN PRN Reason: Constipation Megestrol Acetate (Megace) 100 mg PO DAILY [facility] Last Admin: 05/28/19 09:53 Dose: 100 mg Documented by: Metoclopramide HCl (Reglan) 10 mg IV Q6HP PRN PRN Reason: Nausea And Vomiting Nicotine (Nicoderm) 21 mg TOPICAL DAILY@1000 [facility] Last Admin: 05/28/19 09:53 Dose: 21 mg Documented by: Nicotine (Nicoderm) 14 mg TOPICAL DAILY@1000 [facility] Last Admin: 05/28/19 09:53 Dose: 14 mg Documented by: Ondansetron HCl (Zofran) 4 mg IV Q4HP PRN PRN Reason: Nausea And Vomiting Polyethylene Glycol (Miralax) 17 gm PO DAILYP PRN PRN Reason: Constipation Senna (Senokot) 2 tab PO HSP PRN PRN Reason: Constipation Sodium Chloride (Saline Flush) 10 ml IV Q8 [facility] Last Admin: 05/28/19 12:53 Dose: 10 ml Documented by: Thiamine HCl (Vitamin B1) 100 mg PO DAILY [facility] Last Admin: 05/28/19 09:53 Dose: 100 mg Documented by: Medical - PN: A/P - Time Spent With Patient Total time spent is greater than 50% in coordination of care (as documented) at patient's floor/unit and/or counseling patient: 25 - 35 minutes - Narrative A/P Narrative: 73-year-old male with ongoing alcoholism, presents with humeral and orbital fracture after fall while intoxicated. Alcohol abuse with alcohol withdrawal. Severe alcohol withdrawal is now resolved. Plan: Continue as needed benzodiazepine. Right humerus fracture (lateral supracondylar). Remains in a splint as per Dr. Ugarte for Ortho. Plan: Outpatient Ortho follow-up. Orbital floor fracture secondary to fall. ENT (Dr. Odom) consulted and recommended conservative management. Plan: Outpatient ENT follow-up. Concussion and head injury due to fall while intoxicated. CT with out findings other than orbital fracture. Plan: Supportive care. Encephalopathy, resolved. Suspected secondary to both alcohol withdrawal and concussion. Plan: Supportive care Mild hyponatremia, improved. 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 Brief episode of supraventricular tachycardia. Responded to cough. No recurrent. COPD, tobacco dependence. No current exacerbation. Severe deconditioning secondary to ongoing alcohol abuse as well as hospital ization. Continues to work with PT and OT and being followed by nutrition with nutritional support. Plan: [facility]. Full code Prophylaxis SCDs(facial trauma with hemorrhage and maxillary sinus) Medical - PN: Qual - VTE Deep Vein Thrombosis/Pulmonary Embolism Present on Admission: No
[2019-05-29] MEDS: ACETAMINOPHEN 325 MG TABLET PO PRN ×2 (02:40→08:18)
[2019-05-29] MEDS: cloNIDine HCL 0.1 MG TABLET PO PRN (02:41)
[2019-05-29] MEDS: chlordiazePOXIDE 25 MG CAPSULE PO PRN (02:41)
[2019-05-29] MEDS: 0.9 % SODIUM CHLORIDE 10 ML SYRINGE IV SCH (06:03)
[2019-05-29] MEDS: DOCUSATE SODIUM 100 MG CAPSULE PO SCH (08:18)
[2019-05-29] MEDS: THIAMINE 100 MG TABLET PO SCH (08:18)
[2019-05-29] MEDS: MEGESTROL ACETATE 400 MG/10 ML ORAL.SUSP PO SCH (08:19)
[2019-05-29] MEDS: MULTIVIT,THER IRON,CA,FA & MIN 1 TABLET PO SCH (08:19)
[2019-05-29] MEDS: FOLIC ACID 1 MG TABLET PO SCH (08:19)
[2019-05-29] MEDS: CHLORHEXIDINE GLUCONATE 1 ML ORAL.SOL SWABMOUTH SCH (08:20)
--- NOTE | 2019-05-29 09:12 | Discharge Summary ---
Medical - DS: Prov Patient information: Note initiated : 05/29/19 at 9:07 am Service Date, if different from initiated Date: [] Patient: Juan F Roblero 73 y/o M admitted on 05/15/19 for Alcohol/facial abrasion. Chief Complaint: [] Date of admission: 05/15/19 02:38 Discharge date: 05/29/19 Primary care physician: Chrissy Mahoney Admitting clinician: Saeed Lord Consults: 05/15/19 Consult to Physician [CONS] Stat Comment: Consulting Provider: Saeed Lord Reason For Exam: Physician to Consult 05/15/19 11:46 Consult to Physician [CONS] Routine Comment: right orbit fx Consulting Provider: Inderjit Odom Reason For Exam: Physician to Consult 05/15/19 11:50 Consult to Physician [CONS] Routine Comment: right elbow fx Consulting Provider: Richard Medina Reason For Exam: Physician to Consult Discharging clinician: Allegra Rivera Medical - DS: Meds - Discharge Medications Prescriptions: chlordiazePOXIDE [Librium] 25 mg PO BID #21 cap HYDROcodone/APAP 5/325MG [[place] 5-325Mg] 1 tab PO Q6HP PRN #20 tab PRN Reason: Pain Active and Home Medications: Home Medications No Known Home Meds 05/26/19 [History Confirmed 05/26/19 Last Taken Unknown] Medical - DS: Hosp Hospital Course: Problems Treated: Alcohol abuse with alcohol withdrawal. Severe alcohol withdrawal is now resolved, possibly some mild residual. Plan: Librium taper after discharge. Right humerus fracture (lateral supracondylar). Remains in a splint as per Dr. Ugarte for Ortho. Plan: Outpatient Ortho follow-up. Orbital floor fracture secondary to fall. ENT (Dr. Odom) consulted and recommended conservative management. Plan: Outpatient ENT follow-up. Concussion and head injury due to fall while intoxicated. CT with out findings other than orbital fracture. Plan: Supportive care. Encephalopathy, resolved. Suspected secondary to both alcohol withdrawal and concussion. Plan: Supportive care Mild hyponatremia, improved. 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 Brief episode of supraventricular tachycardia. Responded to cough. No recurrent. COPD, tobacco dependence. No current exacerbation. Aspiration. Patient developed left lower lobe infiltrate on the hospital, had appeared to aspirate on some water. Resolved by the time of discharge. Complex urinary tract infection. Status post antibiotic therapy, E. coli and strep viridans on culture. Severe deconditioning secondary to ongoing alcohol abuse as well as hospi talization. Continues to work with PT and OT and being followed by nutrition with nutritional support. Plan: Transfer to longterm facility for further rehab. Course: Mr. Roblero is a 73 year old M Who presents to the ED with police. Patient history of alcohol abuse. And the long time at the [id number] and usually walks his way home intoxicated. Well-known to the place. This time he was so intoxicated he was unable to stand and fell in a parking, some kids brought him over to some bushes there was no observed vomiting he did have some facial abrasions. In the ED he was evaluated and found to have a sodium of 119 and thus admission was requested. Unable to get much history from the patient has he is quite drowsy. He did get some Ativan at 3 AM for elevated CIWA. Unable to gather review of systems because of poor mentation. 05/16 Or conversant this morning. No complaints. Received Ativan last night for elevated CIWA scores. 05/17 Patient sleeping but arousable. Nurse reports this morning patient appeared aspirate on water. Patient n.p.o. until seen by speech today. 05/18 No overnight events. Patient was cooperative with care. CIWA low through night and no ativan given. Seen by speech therapy yesterday but patient uncooperative, recommendations for continued n.p.o. Georgie today for nutrition until able to take orally per speech therapy. 05/19 Patient sleeping and somnolent after pain medication given. Also did get 2 mg of Ativan earlier this morning. No overnight events reported. Per the nurse patient was more clear in his conversation this morning at shift change 05/20 Sitting up in chair. Little more awake and alert and more conversant, but still depressed mentation. No overnight events. Denies any complaints. 05/21 Needs assistance getting up in the chair. Patient not able to walk safely at this point. Has been agitated overnight. More verbal today and wanting to leave. On room air. 05/22 Agitated last night pulling at lines. Haldol given first and requiring benzodiazepine. Patient up most of the night finally after the medications he is now sleeping. 05/23-patient remains minimally arousable. Unable to participate in conversations. CIWA score continues to be around 11. Continue management per protocol. Continuing tube feeds at 55 an hour. Continue attempting PT OT/oral diet to support once patient awake. Repeat head imaging/ammonia/ABG today. On antibiotic coverage for E. coli UTI. 05/24-patient starting to respond to commands. Overnight episode of SVT short- lived responded to coughing maneuver. Improved agitation and low CIWA scores. Ongoing nutrition support. ST eval today. Continue PT OT. Repeat neuroimaging unremarkable. ABG 7.48/40 . On 2 L oxygen. Ammonia 23, electrolytes within normal limits. 05/25-improved withdrawal symptoms. More awake and sitting on chair. Recurrent aspiration episode. ST eval. NG tube accidentally pulled out. Continuing her diet as per ST recommendations. Interval chest imaging shows resolution of left lower lobe infiltrate ongoing PT OT. Systolics improved to hydralazine. On 07 31 dysphagic diet. Receiving beer intermittently. 05/26-patient much improved, lucid and responding to commands since previous day. Tolerating diet as per ST recommendations. No overnight fever chills. No significant alcohol withdrawal symptoms. Transfer to medical floor today. Continue PT OT she will nutrition support. Case management to coordinate discharge possibly in the next 72 hours 05/27-Patient doing much better since previous day. Able to ambulate with therapy and assistance. On thin liquid diet. Minimal withdrawal symptoms. Started on appetite stimulants. No fever chills nausea vomiting. Anticipate discharge on Wednesday to SNF continue to clinical improvement. 05/28-continues to slowly improve. Getting occasional Librium for withdrawal symptoms. Appetite may be a little improved. Nutrition continues to follow. 05/29-patient seen and examined. Continues to improve. Appetite much improved this morning, ate most of his breakfast. Patient was showing some increasing confusion last night, had done at the night before. At this point doubt this represents alcohol withdrawal, may be more of a situation. However, will provide a Librium taper to cover for any remaining withdrawal symptoms. Discharge diagnosis: Alcohol abuse with intoxication Secondary discharge diagnosis: Right lateral supracondylar humerus fracture Right orbital floor fracture Alcohol withdrawal delirium Encephalopathy due to concussion and withdrawal Concussion due to closed head injury from fall Supraventricular tachycardia, brief and resolved Time spent discussing smoking cessation with patient: 3 to 10 minutes - Time Spent with Patient Total time spent providing and/or coordinating discharge services: Greater than 30 minutes Medical - DS: Exam - Constitutional Vitals: Vital Signs Temp Pulse Resp BP Pulse Ox 05/29/19 08:00 97.4 F 76 18 132/76 97 05/29/19 06:01 97.7 F 69 23 H 110/61 94 05/28/19 22:44 97.8 F 95 H 24 H 122/74 93 05/28/19 19:24 97.5 F 100 H 32 H 121/65 97 05/28/19 17:39 97.4 F 92 H 16 138/76 96 05/28/19 11:20 98.8 F 94 H 18 142/72 94 Intake and Output 05/28/19 05/29/19 05/29/19 21:59 05:59 13:59 Intake Total 540 240 Output Total 1 1 Balance 539 239 Intake: Oral 540 240 Output: # of times incontinent of urine 1 1 Other: Meal Dinner Percent of Meal Consumed 75% Feeding Ability Assist with Tray Set Up Urine Color Bright Yellow Bright Yellow Urine Odor Strong Strong Stool Size Small Stool Color Brown Stool Consistency Soft # Voids 3 # Bowel Movements 2 Weight 120 lb 8 oz Additional comments: General: Thin, elderly male, sitting on edge of bed Chest: Clear to auscultation bilaterally Cardiovascular: Regular, no edema Abdomen: Soft Musculoskeletal: Right upper extremity in splint, right hand glove turner and pulses intact Neuro: Alert, oriented to self, knows he is being discharged, cannot remember to where. Knows he is currently in the hospital. Medical - DS: Data Procedures and tests throughout hospitalization: Dobbhoff feeding tube placement Labs on day of discharge: Laboratory Last Values WBC 8.1 K/mcL (4.5-11.0) 05/26/19 08:19 RBC 3.30 M/mcL (4.50-5.90) L 05/26/19 08:19 Hgb 10.9 g/dL (13.5-16.5) L 05/26/19 08:19 Hct 32.5 % (41.0-55.0) L 05/26/19 08:19 MCV 98.4 fL (80.0-100.0) 05/26/19 08:19 MCH 33.1 pg (26.0-34.0) 05/26/19 08:19 MCHC 33.7 g/dL (31.0-36.0) 05/26/19 08:19 RDW 14.5 % (11.5-14.5) 05/26/19 08:19 Plt Count 577 K/mcL (140-440) H 05/26/19 08:19 MPV 6.6 fL (7.4-10.4) L 05/26/19 08:19 Gran % 75.2 % (38.0-78.0) 05/26/19 08:19 Lymph % (Auto) 8.9 % (15.5-49.0) L 05/26/19 08:19 [place] % (Auto) 13.0 % (1.0-12.0) H 05/26/19 08:19 Eos % (Auto) 2.4 % (0.0-7.0) 05/26/19 08:19 Baso % (Auto) 0.5 % (0.0-2.0) 05/26/19 08:19 Gran # 6.1 K/mcL (1.8-8.0) 05/26/19 08:19 Lymph # (Auto) 0.7 K/mcL (1.5-4.8) L 05/26/19 08:19 [place]ck[place] # (Auto) 1.1 K/mcL (0.1-0.9) H 05/26/19 08:19 Eos # (Auto) 0.2 K/mcL (0.0-0.7) 05/26/19 08:19 Baso # (Auto) 0 K/mcL (0.0-0.3) 05/26/19 08:19 Total Counted 100 05/16/19 03:30 Seg Neutrophils % 83 % (38-78) H 05/16/19 03:30 Band Neutrophils % Not Reportable 05/16/19 03:30 Lymphocytes % 14 % (15-49) L 05/16/19 03:30 Monocytes % (Manual) 3 % (1-12) 05/16/19 03:30 Platelet Estimate Normal (NORMAL) 05/16/19 03:30 RBC Morphology Abnorm (NORMAL) A 05/16/19 03:30 Macrocytosis Occ (NONE SEEN) A 05/16/19 03:30 PT 13.3 sec (11.9-14.5) 05/14/19 23:56 INR 1.0 (0.9-1.1) 05/14/19 23:56 Sodium 135 mmol/L (133-145) 05/26/19 08:19 Potassium 4.1 mmol/L (3.3-5.1) 05/26/19 08:19 Chloride 97 mmol/L (96-108) 05/26/19 08:19 Carbon Dioxide 26 mmol/L (22-30) 05/26/19 08:19 Anion Gap 12.0 (8-16) 05/26/19 08:19 BUN 18 mg/dl (8-23) 05/26/19 08:19 Creatinine 0.8 mg/dl (0.7-1.2) 05/26/19 08:19 GFR Calculation 88 05/26/19 08:19 Glucose 90 mg/dL (70-105) 05/26/19 08:19 Osmolality 292 mOSM/kg (280-300) 05/15/19 07:30 Uric Acid 3.8 mg/dL (2.5-8.0) 05/26/19 08:19 Calcium 9.1 mg/dl (8.6-10.4) 05/26/19 08:19 Phosphorus 4.3 mg/dL (2.7-4.5) 05/26/19 08:19 Magnesium 2.0 mg/dL (1.6-2.5) 05/26/19 08:19 Total Bilirubin 0.4 mg/dL (0.0-1.0) 05/26/19 08:19 Direct Bilirubin < 0.2 mg/dL (0.0-0.3) 05/26/19 08:19 GGT 46 U/L (8-61) 05/26/19 08:19 AST 28 U/l (0-37) 05/26/19 08:19 ALT 22 U/l (0-40) 05/26/19 08:19 Alkaline Phosphatase 76 U/L (39-117) 05/26/19 08:19 Ammonia 23 umol/L (16-60) 05/23/19 09:40 Lactate Dehydrogenase 220 U/L (94-250) 05/26/19 08:19 Total Protein 7.0 gm/dL (5.9-8.4) 05/26/19 08:19 Albumin 3.3 gm/dL (3.2-5.2) 05/26/19 08:19 Globulin 3.7 gm/dL (2.2-3.7) 05/26/19 08:19 Albumin/Globulin Ratio 0.9 (1.0-2.3) L 05/26/19 08:19 Prealbumin 12.2 mg/dl (20-40) L 05/17/19 10:10 Triglycerides 42 mg/dl (<150) 05/26/19 08:19 Vitamin B12 750.2 pg/ml (232-1245) 05/17/19 10:10 Folate 17.4 ng/mL (4.2-19.9) 05/17/19 10:10 Urine Color Lt red 05/15/19 07:30 Urine Appearance Hazy 05/15/19 07:30 Urine pH 9.0 (5.0-9.0) 05/15/19 07:30 Ur Specific Donna 1.003 (1.000-1.035) 05/15/19 07:30 Urine Protein 30 mg/dL (NEG) A 05/15/19 07:30 Urine Glucose (UA) Negative mg/dL (NEG) 05/15/19 07:30 Urine Ketones Neg mg/dL (NEG) 05/15/19 07:30 Urine Occult Blood >=1.0 mg/dL (<0.03) A 05/15/19 07:30 Urine Nitrate Pos (NEG) A 05/15/19 07:30 Urine Bilirubin Neg mg/dL (NEG) 05/15/19 07:30 Urine Urobilinogen Neg mg/dL (NEG) 05/15/19 07:30 Ur Leukocyte Esterase 500 /uL (NEG) A 05/15/19 07:30 Urine RBC 14 /hpf (0-1) H 05/15/19 07:30 Urine WBC 9 /hpf (0-4) H 05/15/19 07:30 Ur Squamous Epith Cells 0 /hpf (0-4) 05/15/19 07:30 Urine Bacteria Many /hpf (0) A 05/15/19 07:30 Ur Culture Indicated? Yes 05/15/19 07:30 Urine Osmolality 144 mOsm/kg (80-1000) 05/15/19 07:30 Ur Random Sodium < 20 mmol/L 05/15/19 07:30 Urine Opiates Screen None detected (NONDETECTED) 05/15/19 07:30 Ur Opiates Confirm Not Reportable 05/15/19 07:30 Ur Oxycodone Screen None detected (NONDETECTED) 05/15/19 07:30 Urine Methadone Screen None detected (NONDETECTED) 05/15/19 07:30 Ur Methadone Confirm Not Reportable 05/15/19 07:30 Ur Barbiturates Screen None detected (NONDETECTED) 05/15/19 07:30 Ur Barbiturate Confirm Not Reportable 05/15/19 07:30 Ur Phencyclidine Scrn None detected (NONDETECTED) 05/15/19 07:30 Urine PCP Confirm Not Reportable 05/15/19 07:30 Ur Amphetamines Screen None detected (NONDETECTED) 05/15/19 07:30 U Amphetamines Confirm Not Reportable 05/15/19 07:30 U Benzodiazepines Scrn None detected (NONDETECTED) 05/15/19 07:30 U Benzodiazepine Confm Not Reportable 05/15/19 07:30 Urine Cocaine Screen None detected (NONDETECTED) 05/15/19 07:30 Urine Cocaine Confirm Not Reportable 05/15/19 07:30 U Cannabinoids Confirm Not Reportable 05/15/19 07:30 U Marijuana (THC) Screen None detected (NONDETECTED) 05/15/19 07:30 Ethyl Alcohol 0.251 gm/dl (<0.010) H 05/14/19 23:56 - Additional Comments Date of Service: 05/15/19 Procedure(s): XR chest 1V portable IMPRESSION: Negative AP portable chest x-ray Date of Service: 05/15/19 Procedure(s): XR elbow RT complete 3VW IMPRESSION: Essentially nondisplaced distal right humeral supracondylar fracture Date of Service: 05/15/19 Procedure(s): CT head/brain wo con IMPRESSION: 1. Cerebral atrophy. No acute intracranial abnormality 2. Right periorbital soft tissue swelling. Probable right orbital floor fracture. Recommend further evaluation 3. Abnormality of the right frontal sinuses, ethmoid sinuses, and maxillary sinuses. Hemorrhage within the right maxillary sinus is suspected. Date of Service: 05/16/19 Procedure(s): CT facial bones wo con IMPRESSION: 1. Right orbital floor blowout fracture 2. Soft tissue abnormality within the right maxillary sinus consistent with hemorrhage 3. No medial blowout fracture. No other facial bone fractures. 4. Improved right periorbital soft tissue swelling Date of Service: 05/18/19 Procedure(s): XR chest 1V portable IMPRESSION: 1. Left lower lobe density consistent with pneumonia. Follow-up recommended 2. Right basilar density is probably a prominent nipple shadow. Follow-up recommended Date of Service: 05/25/19 Procedure(s): XR chest 1V portable IMPRESSION: resolved left lower lobe infiltrate and no acute abnormality Medical - DS: A/P - Patient/Caregiver Discharge Instructions Activity: ambulate only with your walker (up with assistance), as per physical therapy Diet: Dysphagia Level 4 Pureed Foods (Also, Ensure Enlive, 4 fl oz, 6x daily) - Follow up Plan Follow up with: Chrissy Mahoney MD [Primary Care Provider] - (1-2 weeks) Richard Medina MD [Physician] - (2 weeks) Inderjit Odom DO [Physician] - (2 weeks) Disposition: Xf SNF Prognosis: Fair Rehab Potential: Fair I certify that the patient requires SNF services: Yes Overall status at discharge: patient is progressing back to baseline Medical - DS: Qual - VTE Deep Vein Thrombosis/Pulmonary Embolism Present on Admission: No
[2019-05-29] MEDS: NICOTINE 14 MG PATCH TOPICAL SCH (09:56)
[2019-05-29] MEDS: NICOTINE 21 MG PATCH TOPICAL SCH (09:56)
--- NOTE | 2019-06-12 15:04 | Consultation ---
DATE OF CONSULTATION: 05/15/2019 REASON FOR CONSULTATION: The patient was seen to evaluate x-rays and to see if this was a surgical case. This patient had a fall onto an outstretched hand which he does not recall events of location or surroundings for which he is being admitted for acute alcohol intoxication. The patient is otherwise not a local resident of our area and may be traveling on. The patient was unsure of his plans. He does complain of elbow pain. He has facial abrasions for which this has been worked up by the hospitalist and emergency room physicians. Otherwise, his elbow is somewhat painful and swollen. He is able to move his fingers without difficulty. PAST MEDICAL HISTORY: He uses alcohol on a daily basis. PAST SURGICAL HISTORY: He does not note any prior surgeries. MEDICATIONS: He does not take regular medication. PHYSICAL EXAMINATION: GENERAL: Very pleasant, confused, alcoholic male 73 years of age. He is somewhat intoxicated. Poor muscle tone. Poor nutritional status. Very dirty overall body habitus and appears very disheveled. HEAD: He has abrasions on the face and the head area which are superficial in origin. LUNGS: Clear bilaterally. He complains of some chest pain with deep breathing and a little bit of shortness of breath. ABDOMEN: Soft. EXTREMITIES: Complains of pain with any motion of the elbow. He has no open wounds around the elbow, no lacerations. Lower extremities move without difficulty. He can move his toes up and down. IMAGING: His x-rays of his elbow which I have been consulted for were reviewed. These show a supracondylar humerus fracture, minimally displaced on AP and lateral and oblique views. PLAN: Treatment plan is to keep the patient in a posterior splint, which he was placed in by the emergency room. We will keep him in this until he can follow up and get through the acute alcohol intoxication. Repeat x-rays in 2 weeks at my clinic. The patient is going to be admitted to the hospital for his acute intoxication and try to get him more stabilized physically, try to get him eating, and these all would make surgery easier if he were to need this. It is possible he would need surgery, but there is a good chance we can treat this with a closed a treatment if the fracture does not move. His poor nutritional status bodes poorly to heal any fracture or surgical site. I have encouraged the patient to eat plenty of protein. Follow up with me in 2 weeks. RBKeara:brit Job ID: [id number] Doc ID: [id number] Richard Medina MD
== END 2019-05-29 10:38 | DRG 897 ==
LOC: ED 23:21 → ICU 05-15 02:38 → MEDSUR 05-26 13:20
PROVIDERS: ADMIT Internal Medicine; ATTEND Internal Medicine